=== PATIENT | male | born 1950 | race Caucasian/White ===

== ENCOUNTER 2019-08-18 13:26 | Outpatient (CLI) | payer MEDICARE, SELFPAY ==
--- NOTE | ~2019-08-18 | XR_ITS ---
XR shoulder LT min 2V 08/18/2019 13:52 Indication: Left shoulder pain after recent fall Procedure: 4 views left shoulder Comparison: No prior studies for comparison. Findings: There is mild polyarticular osteoarthritis. No acute fracture or traumatic malalignment. Os teopenia. No significant soft tissue abnormality. No foreign bodies. There is an ossific density late ral to the acromion, likely calcific tendinopathy. Impression: 1: Mild polyarticular osteoarthritis of the left shoulder. Reviewed, dictated and finalized at location A. Impression: 1: Mild polyarticular osteoarthritis of the left shoulder.
== END 2019-08-18 13:27 | disposition home or self-care (01) ==
PROVIDERS: PCP Internal Medicine; Visit Provider Internal Medicine
DX: M25.512 Pain in left shoulder (principal)
CPT/HCPCS: 73030

== ENCOUNTER 2019-09-16 13:43 | Outpatient (RCR) | payer MEDICARE, SELFPAY ==
--- NOTE | 2019-09-21 16:47 | PTOPEVAL ---
Thank you for referring Kenji Newby to [facility]. Please review, sign, date and return this plan of care SPENCER. I agree with and certify that the following plan of care is medically necessary. Referring Physician Date Admitting Provider: Attending Provider: Marcus Marely MD Referring Provider: *PT Outpatient Evaluation Start: 09/16/19 13:42 Freq: Status: Active Protocol: Document 09/16/19 13:00 SYLVIE (Rec: 09/21/19 16:36 [facility] [id number]) Therapy Assessment Status Assessment Status Assessment Status Evaluation Evaluation Information Problem Diagnosis L shoulder pain/arthritis Onset 08/18/19 Subjective Information patient reports he has been Query Text:As Reported By Patient/ having pain in the L shoulder Family for months. he reports no injury. he reports he has had pain in the L shoulder in the past, but has been flared up since around june. he reports he has had no injection to the L shoulder. he reports increased pain with sleeping and with increased activities. Prior Level of Function Comments Additional Prior Level of Function patient reports he likes to Comments fish, golf, and do other outdoor activities. Pain Assessment Timing of Pain Assessment Timing of Pain Assessment Assessment Pain Scale Pain Scale Used Numeric (1 - 10) Self Report Pain Assessment Left Shoulder(s) Reported Pain Level 4 Pain Description Aching,Dull,Pulling,Sharp, Stabbing Pain Frequency Acute,Chronic Greatest Pain Intensity 8 Pain Aggravating Factors Changing Position,Exercise/ Activity,Lifting,Prolonged Position Pain Score Pain Score 4: Self Report Upper Extremity Range of Motion Scapular/ Shoulder Range of Motion Left Reason Not Measured WFL/Right Shoulder Flexion - Active 150 Shoulder Flexion - Passive 170 Shoulder Medial Rotation - Active 60 Shoulder Medial Rotation - Active functional reach to the lower Query Text:Reach Behind the Back lumbar spine with increased pain and increased time needed to complete. Shoulder Lateral Rotation - Active 80 Shoulder Lateral Rotation - Active functional reach to the lower Query Text:Reach Behind the Head cervical spine/upper thoracic
--- NOTE | 2019-09-28 15:10 | PCPTNOTE ---
09/28/19-pt cancelled apt as he is out of town for work. -
--- NOTE | 2019-10-07 09:39 | PCPTNOTE ---
10/07/19- pt cancelled appointment today, said he had a tooth pulled and it is bothering him. -HM
== END 2019-09-30 17:00 | disposition home or self-care (01) ==
LOC: CHSPT 13:43
PROVIDERS: PCP Internal Medicine; Visit Provider Internal Medicine
DX: M25.512 Pain in left shoulder (principal); M13.812 Other specified arthritis, left shoulder
CPT/HCPCS: 97014; 97110; 97140; 97161; G0283

== ENCOUNTER 2020-03-20 09:12 | Outpatient (CLI) | payer MEDICARE, SELFPAY ==
--- NOTE | ~2020-03-20 | XR_ITS ---
XR knee LT min 4V DATE: 03/20/2020 09:37 INDICATION: Left knee pain for 2 weeks. The ma was punctured with metal. TECHNIQUE: 4 views COMPARISON: 10/03/2016 FINDINGS: No fracture or dislocation or joint effusion. There is mild periarticular spurring of the patella consistent with osteoarthritis. No radiopaque int ra-articular loose body or chondrocalcinosis is evident. IMPRESSION: Mild osteoarthritis at the patellofemoral joint Reviewed, dictated and finalized at location A.
[2020-03-20 09:32] LABS: Basophils Absolute Auto 0.02 K/mm3 (0.00-0.10); Basophils Percent Auto 0.3 % (0.0-1.0); Eosinophils Absolute Auto 0.13 K/mm3 (0.02-0.50); Eosinophils Percent Auto 1.9 % (1.0-6.0); Hematocrit 41.8 % (37.0-46.0); Hemoglobin 13.9 g/dL (12.4-15.3); Immature Granulocyte Absolute 0.02 K/mm3 (0.00-0.00); Immature Granulocyte Percent A 0.3 % (0.0-0.0); Lymphocytes Absolute Auto 1.47 K/mm3 (1.10-4.50); Lymphocytes Percent Auto 21.8 % (18.0-42.0); Mean Corpuscular HGB Conc 33.3 g/dL (32.0-36.0); Mean Corpuscular Hemoglobin 30.3 pg (27.0-31.0); Mean Corpuscular Volume 91.1 fL (78.0-102.0); Mean Platelet Volume 10.5 fl (8.7-11.0); Monocytes Absolute Auto 0.41 K/mm3 (0.10-0.90); Monocytes Percent Auto 6.1 % (2.0-11.0); Neutrophils Absolute Auto 4.7 K/mm3 (1.7-7.2); Neutrophils Percent Auto 69.6 % (50.0-70.0); Platelet Count Result 174 K/mm3 (150-420); Red Blood Count 4.59 M/mm3 (4.70-6.10); Red Cell Distribution Width 12.2 % (11.6-14.4); White Blood Count 6.7 K/mm3 (4.8-10.8)
[2020-03-20 09:33] LABS: Add Urine Microscopic? NO; Appearance Urine Clear (Clear); Bilirubin Urine Negative (Negative); Blood Urine Negative (Negative); Color Urine Yellow (Yellow); Glucose Urine UA Negative (Negative); Ketones Urine Negative (Negative); Leukocyte Esterase Ur Negative (Negative); Nitrate Urine Negative (Negative); Protein Urine Negative (Negative); Urobilinogen Urine 0.2 mg/dL (0.2-1.0); pH Urine 5.5 (5.0-8.0)
[2020-03-20 09:58] LABS: Creatinine Urine 92.44 mg/dL (40-278); MALB Creatinine Ratio 95.8 mg/g (0-30); Microalbumin Urine Random 88.6 mg/L
[2020-03-20 10:11] LABS: Hemoglobin A1C 8.2 % (<5.7)
[2020-03-20 10:20] LABS: Alanine Aminotransferase 24 U/L (16-63); Albumin Level 3.7 g/dL (3.4-5.0); Alkaline Phosphatase 57 U/L (46-116); Anion Gap 9 mmol/L (8-16); Aspartate Amino Transferase 17 U/L (15-37); Bilirubin,Total 0.4 mg/dL (0.00-1.00); Blood Urea Nitrogen 11 mg/dL (7-18); Calcium 8.9 mg/dL (8.5-10.1); Carbon Dioxide 29 mmol/L (21-32); Chloride 103 mmol/L (98-108); Cholesterol 203 mg/dL (0-200); Estimated Glomerular Filt Rate > 60; Glucose 154 mg/dL (70-99); HDL Direct 32 mg/dL (40-60); LDL Cholesterol Calculated 124 mg/dL (<130); Osmolality Calculated 294 mOsm/kg (285-295); Potassium 4.6 mmol/L (3.5-5.1); Sodium 141 mmol/L (136-145); Thyroid Stimulating Hormone 1.33 uIU/mL (0.36-3.74); Total Protein 6.4 g/dL (6.4-8.2); Triglycerides 237 mg/dL (0-150)
== END 2020-03-20 09:13 | disposition home or self-care (01) ==
PROVIDERS: PCP Internal Medicine; Visit Provider Internal Medicine
DX: E11.9 Type 2 diabetes mellitus without complications (principal); S89.92XA Unspecified injury of left lower leg, initial encounter; Z00.00 Encounter for general adult medical examination without abnormal findings
CPT/HCPCS: 36415; 73564; 80053; 80061; 81003; 82043; 83036; 84443; 85025

== ENCOUNTER 2021-05-30 13:11 | Outpatient (CLI) | payer MEDICARE, SELFPAY ==
[2021-05-30 14:50] LABS: Influenza Control Valid (Valid); SARS-CoV-2 Ag Positive (Negative)
== END 2021-05-30 13:12 | disposition home or self-care (01) ==
LOC: CHSLAB 13:15
PROVIDERS: PCP Internal Medicine; Visit Provider Internal Medicine
DX: U07.1 COVID-19 (principal)
CPT/HCPCS: 87426; 87804; C9803

== ENCOUNTER 2022-05-24 11:11 | Outpatient (CLI) | payer MEDICARE, SELFPAY ==
[2022-05-24 11:32] LABS: Add Urine Microscopic? YES; Appearance Urine Clear (Clear); Bilirubin Urine Negative (Negative); Blood Urine Negative (Negative); Color Urine Light Yellow (Yellow); Glucose Urine UA 3+ (Negative); Ketones Urine Negative (Negative); Leukocyte Esterase Ur Negative (Negative); Nitrate Urine Negative (Negative); Protein Urine Trace (Negative); Specific Grav Ur 1.025 (1.010-1.020); Urobilinogen Urine 0.2 mg/dL (0.2-1.0)
[2022-05-24 11:33] LABS: Basophils Absolute Auto 0.02 K/mm3 (0.00-0.10); Basophils Percent Auto 0.3 % (0.0-1.0); Eosinophils Absolute Auto 0.11 K/mm3 (0.02-0.50); Eosinophils Percent Auto 1.9 % (1.0-6.0); Hematocrit 42.7 % (37.0-46.0); Hemoglobin 14.4 g/dL (12.4-15.3); Immature Granulocyte Absolute 0.02 K/mm3 (0.00-0.00); Immature Granulocyte Percent A 0.3 % (0.0-0.0); Immature Platelet Fraction Pct 5.4 % (1.0-7.0); Lymphocytes Absolute Auto 1.55 K/mm3 (1.10-4.50); Lymphocytes Percent Auto 26.1 % (18.0-42.0); Mean Corpuscular HGB Conc 33.7 g/dL (32.0-36.0); Mean Corpuscular Hemoglobin 29.9 pg (27.0-31.0); Mean Corpuscular Volume 88.8 fL (78.0-102.0); Monocytes Absolute Auto 0.34 K/mm3 (0.10-0.90); Monocytes Percent Auto 5.7 % (2.0-11.0); Neutrophils Absolute Auto 3.9 K/mm3 (1.7-7.2); Neutrophils Percent Auto 65.7 % (50.0-70.0); Platelet Count Result 130 K/mm3 (150-420); Red Blood Count 4.81 M/mm3 (4.70-6.10); Red Cell Distribution Width 11.9 % (11.6-14.4); White Blood Count 5.9 K/mm3 (4.8-10.8)
[2022-05-24 11:40] LABS: Bacteria Urine Trace /hpf; Mucus Urine Few /lpf; RBC Urine None seen /hpf (0-2); Squamous Epithelial Cell Urine Rare /hpf (Few); WBC Urine None seen /hpf (0-3)
[2022-05-24 12:15] LABS: Alanine Aminotransferase 27 U/L (16-63); Albumin Level 3.8 g/dL (3.4-5.0); Alkaline Phosphatase 67 U/L (46-116); Anion Gap 6 mmol/L (8-16); Aspartate Amino Transferase 17 U/L (15-37); Bilirubin,Total 0.5 mg/dL (0.00-1.00); Blood Urea Nitrogen 14 mg/dL (7-18); Calcium 8.7 mg/dL (8.5-10.1); Carbon Dioxide 29 mmol/L (21-32); Chloride 101 mmol/L (98-108); Estimated Glomerular Filt Rate 59; Glucose 329 mg/dL (70-99); Osmolality Calculated 295 mOsm/kg (285-295); Potassium 4.6 mmol/L (3.5-5.1); Prostate Specific Antigen 3.4 ng/mL (< OR = 4.0); Sodium 136 mmol/L (136-145); Total Protein 6.3 g/dL (6.4-8.2)
[2022-05-24 12:25] LABS: Creatinine Urine 77.01 mg/dL (40-278)
[2022-05-24 12:27] LABS: MALB Creatinine Ratio 224.6 mg/g (0-30)
== END 2022-05-24 11:12 | disposition home or self-care (01) ==
PROVIDERS: PCP Internal Medicine; Visit Provider Internal Medicine
DX: E11.9 Type 2 diabetes mellitus without complications (principal); I10 Essential (primary) hypertension; Z12.5 Encounter for screening for malignant neoplasm of prostate
CPT/HCPCS: 36415; 80053; 81001; 82043; 83036; 84153; 85025; 85055; G0103

== ENCOUNTER 2022-06-06 12:36 | Outpatient (CLI) | payer MEDICARE, SELFPAY ==
--- NOTE | ~2022-06-06 | US_ITS ---
US abdomen limited INDICATION: Pancreatic mass. PROCEDURE: Realtime right upper abdominal ultrasound. COMPARISON: CT dated 06/15/2018 FINDINGS: The pancreas is normal without focal mass or pancreatic ductal dilation. Liver echotexture is increased, consistent with fatty infiltration. There is a 3.4 cm liver cyst. There is normal dir ectional flow in the portal vein. The gallbladder is normal without stones, gallbladder wall thickening or pericholecystic fluid. Comm on bile duct measures 5 mm. No sonographic Hernández's sign. IMPRESSION: 1: Hepatic steatosis. 2: Liver cyst measuring 3.4 cm. Reviewed, dictated and finalized at location A. [employer]
== END 2022-06-06 12:37 | disposition home or self-care (01) ==
LOC: CHSIMG 12:37
PROVIDERS: PCP Internal Medicine; Visit Provider Internal Medicine
DX: E11.9 Type 2 diabetes mellitus without complications (principal); K86.9 Disease of pancreas, unspecified; K76.0 Fatty (change of) liver, not elsewhere classified; K76.89 Other specified diseases of liver
CPT/HCPCS: 76705

== ENCOUNTER 2022-09-17 11:52 | Outpatient (CLI) | payer MEDICARE, SELFPAY ==
[2022-09-17 12:17] LABS: Hemoglobin A1C 6.4 % (<5.7)
[2022-09-17 12:21] LABS: Creatinine Urine 67.41 mg/dL (40-278)
[2022-09-17 12:25] LABS: MALB Creatinine Ratio 240.7 mg/g (0-30); Microalbumin Urine Random 162.3 mg/L
[2022-09-17 12:38] LABS: Alanine Aminotransferase 28 U/L (16-63); Albumin Level 3.9 g/dL (3.4-5.0); Alkaline Phosphatase 52 U/L (46-116); Anion Gap 8 mmol/L (8-16); Aspartate Amino Transferase 19 U/L (15-37); Bilirubin,Total 0.4 mg/dL (0.00-1.00); Blood Urea Nitrogen 21 mg/dL (7-18); Calcium 8.6 mg/dL (8.5-10.1); Carbon Dioxide 28 mmol/L (21-32); Chloride 105 mmol/L (98-108); Cholesterol 156 mg/dL (0-200); Glucose 105 mg/dL (70-99); HDL Direct 39 mg/dL (40-60); LDL Cholesterol Calculated 94 mg/dL (<130); Osmolality Calculated 295 mOsm/kg (285-295); Potassium 4.3 mmol/L (3.5-5.1); Sodium 141 mmol/L (136-145); Total Protein 6.5 g/dL (6.4-8.2); Triglycerides 114 mg/dL (0-150)
[2022-09-17 12:49] LABS: Estimated Glomerular Filt Rate 60
== END 2022-09-17 11:53 | disposition home or self-care (01) ==
LOC: CHSLAB 11:54
PROVIDERS: PCP Internal Medicine; Visit Provider Internal Medicine
DX: E11.9 Type 2 diabetes mellitus without complications (principal); I10 Essential (primary) hypertension; E78.5 Hyperlipidemia, unspecified
CPT/HCPCS: 36415; 80053; 80061; 82043; 83036

== ENCOUNTER 2023-01-29 14:33 | Emergency (ER) | payer MEDICARE, SELFPAY ==
[2023-01-29] VITALS (50 sets, daily range): BP systolic 84–160; BP diastolic 52–147; PULSE 115–180; RESP 13–28; TEMP 36.6–36.8; O2SAT 83–97
--- NOTE | ~2023-01-29 | XR_ITS ---
EXAMINATION: XR chest 1V portable Exam Date/Time: 01/29/2023 15:00 CDT HISTORY: WEAKNESS Comparison: None. RESULT: Lines, tubes, and devices: None. Lungs and pleura: Low volumes. Bibasilar linear scar/atelectasis. Cardiomediastinal silhouette: Stable. Other: No acute osseous or upper abdominal finding. IMPRESSION: No acute cardiopulmonary process. Reviewed, dictated and finalized at location K.
--- NOTE | ~2023-01-29 | CT_ITS ---
EXAMINATION: CT brain wo con DATE: 01/29/2023 17:03 INDICATION: weakness . TECHNIQUE: Computed tomography (CT) of the head was performed without intravenous contrast. The mA wa s adjusted according to patient size. Iterative reconstruction technique was employed. The dose-lengt h product was 681.00 mGy-cm. COMPARISON: None. FINDINGS: No acute intracranial hemorrhage or extra-axial fluid collection. No hydrocephalus, mass, or herniation. No acute ischemic infarct. Unremarkable dural venous sinus attenuation. No acute osseous abnormality. Mild bilateral maxillary and ethmoid mucosal thickening, moderate right mastoid fluid without erosion s or middle ear fluid, the remaining aerated spaces are clear. Moderate atrophy and chronic white matter change. Atherosclerotic intracranial calcification. Right l ens replacement. Old left basal ganglia lacunar infarct. IMPRESSION: No acute intracranial process. Reviewed, dictated and finalized at location K.
--- NOTE | 2023-01-29 14:10 | ECG_ITS ---
Measurements Intervals [place] Rate: 177 P: [place]: 0 QRS: 12 QRSD: 99 T: 120 QT: 251 QTc: 431 Interpretive Statements ATRIAL FIBRILLATION WITH RAPID VENTRICULAR RESPONSE VENTRICULAR TRIPLET AND FREQUENT VENTRICULAR PREMATURE COMPLEXES NONSPECIFIC ST & T-WAVE ABNORMALITY- DIFFUSE LEADS ABNORMAL ECG NO PREVIOUS ECG AVAILABLE FOR COMPARISON Electronically Signed On 01-30-2023 8:34:42 CDT by Theron Elizondo D.O.
--- NOTE | 2023-01-29 14:53 | ED.ARRPALP ---
HPI - Arrhythmia/Palpitations General Chief Complaint: Arrhythmia/Palpitations Stated Complaint: low blood pressure Time Seen by Provider: 01/29/23 14:53 Source: patient Mode of arrival: ambulatory Limitations: no limitations History of Present Illness HPI narrative: 72-year-old male with a history of hypertension, dyslipidemia, diabetes mellitus presents to the ER with a 1 week history of -- nausea and vomiting and diarrhea -- headache -- lightheadedness with balance problems. Patient is noted to have atrial fibrillation with a ventricular rate of 177. The patient is hemodynamically stable. No prior history of atrial fibrillation. The patient denied any chest pain or shortness of breath. Patient does not perceive any palpitation. patient has not had any prior cardiac stress testing or cardiac catheterization. Nonsmoker MD complaint: rapid heart beat Onset (ago): day(s) ( Started 7 days ago.) Duration: constant Severity: moderate Context: occurred during rest Arrhythmia history: atrial fibrillation Associated symptoms: denies other symptoms Related Data Allergies Allergy/AdvReac Type Severity Reaction Status Date / Time No Known Allergies Allergy Verified 01/29/23 14:59 Review of Systems Review of Systems: All systems reviewed & are unremarkable except as noted in HPI and below Constitutional: Constitutional: Reports as per HPI, Reports no additional constitutional complaints, Reports fatigue, Reports headache(s), Reports lethargy and Reports weakness Eyes: Eyes: Reports as per HPI and Reports no additional eye complaints ENT: Reports system reviewed and no additional complaints, except as documented and Reports as per HPI Cardiovascular: Cardiovascular: Reports as per HPI and Reports no additional cardiovascular complaints Respiratory: Respiratory: Reports as per HPI and Reports no additional respiratory complaints Gastrointestinal: Gastrointestinal: Reports as per HPI and Reports no additional gastrointestinal complaints Genitourinary: Genitourinary: Reports no additional male genitourinary complaints and Reports as per HPI Musculoskeletal: Musculoskeletal: Reports no additional musculoskeletal complaints and Reports as per HPI Integumentary/Breasts: Skin/Breast: Reports system reviewed and no additional complaints, except as docu Neurologic: Reports system reviewed and no additional complaints, except as documented and Reports as per HPI Psychiatric: Psychiatric: Reports no additional psychiatric complaints and Reports as per HPI Endocrine: Endocrine: Reports no additional endocrine complaints and Reports as per HPI Hematologic/Lymphatic: Hematologic/Lymphatic: Reports no additional hematologic/lymphatic complaints and Reports as per HPI Allergic/Immunologic: Allergic/Immunologic: Reports no additional allergic/immunologic complaints and Reports as per HPI [facility] Past Medical History Medical History (Updated 01/29/23 @ 18:47 by Abdulaziz Felipe MD) Dyslipidemia Hypertension Exam Const: General: cooperative, healthy appearing and comfortable Nutritional Appearance: obese HENMT: Head: normal to inspection, No palpable skull fracture present, normocephalic and atraumatic Ears: hearing grossly impaired Face/Nose/Sinus: Normal external nose present, Normal nares present and No nasal polyps present Face and sinus: normal facial exam, sinuses nontender and face symmetric Mouth: Yes Normal oral and palatal mucosa present and Yes lip normal Throat: posterior oropharynx normal and tonsils normal Eyes: General: appearance normal, both eyes and all related structures Visual Silva: normal visual silva by confrontation Alignment and Position: alignment normal Eyelids: eyelids normal Conjunctivae: conjunctivae normal Sclera: sclerae normal Cornea: corneas normal Pupils: Equal, round and reactive pupils present Neck: Neck: normal visual inspection, full ROM, no lymphadenopathy, no meningeal sig
[2023-01-29] MEDS: METOPROLOL TARTRATE INJ 5 MG/5 ML VIAL IV PUSH (15:03)
[2023-01-29 15:10] LABS: Basophils Absolute Auto 0.01 K/mm3 (0.00-0.10); Basophils Percent Auto 0.2 % (0.0-1.0); Eosinophils Absolute Auto 0.02 K/mm3 (0.02-0.50); Eosinophils Percent Auto 0.4 % (1.0-6.0); Hematocrit 46.5 % (37.0-46.0); Hemoglobin 15.9 g/dL (12.4-15.3); Immature Granulocyte Absolute 0.01 K/mm3 (0.00-0.00); Immature Granulocyte Percent A 0.2 % (0.0-0.0); Immature Platelet Fraction Pct 8.5 % (1.0-7.0); Lymphocytes Absolute Auto 0.33 K/mm3 (1.10-4.50); Lymphocytes Percent Auto 6.3 % (18.0-42.0); Mean Corpuscular HGB Conc 34.2 g/dL (32.0-36.0); Mean Corpuscular Hemoglobin 30.5 pg (27.0-31.0); Mean Corpuscular Volume 89.3 fL (78.0-102.0); Monocytes Absolute Auto 0.61 K/mm3 (0.10-0.90); Monocytes Percent Auto 11.6 % (2.0-11.0); Neutrophils Absolute Auto 4.3 K/mm3 (1.7-7.2); Neutrophils Percent Auto 81.3 % (50.0-70.0); Platelet Count Result 90 K/mm3 (150-420); Red Blood Count 5.21 M/mm3 (4.70-6.10); Red Cell Distribution Width 13.1 % (11.6-14.4); White Blood Count 5.3 K/mm3 (4.8-10.8)
[2023-01-29 15:25] LABS: Partial Thromboplastin Time 26.5 SEC (23.90-30.70); Prothrombin Time 10.6 Seconds (9.50-12.10)
[2023-01-29 15:29] LABS: Lactic Acid Reflex 1.5 mmol/L (0.4-2.0)
[2023-01-29 15:31] LABS: Alanine Aminotransferase 107 U/L (16-63); Albumin Level 2.8 g/dL (3.4-5.0); Alkaline Phosphatase 93 U/L (46-116); Anion Gap 11 mmol/L (8-16); Aspartate Amino Transferase 25 U/L (15-37); Bilirubin,Total 1.7 mg/dL (0.00-1.00); Blood Urea Nitrogen 56 mg/dL (7-18); Calcium 8.7 mg/dL (8.5-10.1); Carbon Dioxide 26 mmol/L (21-32); Chloride 94 mmol/L (98-108); Estimated CRCL calculation 29 ml/min; Estimated Glomerular Filt Rate 24; Glucose 267 mg/dL (70-99); Lipase 29 U/L (16-77); Magnesium 2.1 mg/dL (1.8-2.4); NT Pro B Type Natriuretic Pept 1604 pg/mL (0-125); Osmolality Calculated 296 mOsm/kg (285-295); Potassium 3.7 mmol/L (3.5-5.1); Sodium 131 mmol/L (136-145); Total Protein 6.8 g/dL (6.4-8.2)
[2023-01-29 15:32] LABS: Thyroid Stimulating Hormone 0.86 uIU/mL (0.36-3.74); Troponin I 16.3 ng/L (0.00-60.4)
[2023-01-29] MEDS: dilTIAZem HCl INJ 25 MG/5 ML VIAL 10 MG IV PUSH (15:51)
[2023-01-29] MEDS: dilTIAZem 100 MG/100 ML 100 MG/100 ML BAG IV CONT (16:05)
--- NOTE | 2023-01-29 19:37 | PC.NURSE ---
cardizem gtt continued after DC for transfer to [facility]
[2023-01-29 19:55] LABS: Influenza A QL RT-PCR Negative (Negative); Influenza B QL RT-PCR Negative (Negative); RSV RNA, RT-PCR Negative (Negative); SARS-CoV-2 RNA PCR Negative (Negative)
== END 2023-01-29 19:38 | disposition short-term general hospital (02) ==
PROVIDERS: Emergency Provider Internal Medicine Critical Care Medicine; PCP Internal Medicine
DX: I48.20 Chronic atrial fibrillation, unspecified (principal); N17.9 Acute kidney failure, unspecified; E11.65 Type 2 diabetes mellitus with hyperglycemia; I10 Essential (primary) hypertension; E78.5 Hyperlipidemia, unspecified; Z20.822 Contact with and (suspected) exposure to COVID-19
CPT/HCPCS: 36415; 70450; 71045; 80053; 83605; 83690; 83735; 83880; 84443; 84484; 85025; 85055; 85610; 85730; 87637; 93005; 96365; 96366; 96375; 99285

== ENCOUNTER 2023-02-06 11:11 | Outpatient (CLI) | payer MEDICARE, SELFPAY ==
[2023-02-06 12:14] LABS: Anion Gap 5 mmol/L (8-16); Blood Urea Nitrogen 14 mg/dL (7-18); Carbon Dioxide 31 mmol/L (21-32); Chloride 103 mmol/L (98-108); Estimated Glomerular Filt Rate 48; Glucose 173 mg/dL (70-99); Osmolality Calculated 292 mOsm/kg (285-295); Potassium 4.8 mmol/L (3.5-5.1); Sodium 139 mmol/L (136-145)
== END 2023-02-06 11:12 | disposition home or self-care (01) ==
PROVIDERS: PCP Internal Medicine
DX: E11.65 Type 2 diabetes mellitus with hyperglycemia (principal); N17.9 Acute kidney failure, unspecified; I95.9 Hypotension, unspecified
CPT/HCPCS: 36415; 80048

== ENCOUNTER 2023-02-27 08:19 | Outpatient (CLI) | payer MEDICARE, SELFPAY ==
--- NOTE | ~2023-02-27 | US_ITS ---
Abdominal Sonogram: Real-time sonographic imaging of the abdomen was performed. Clinical History: Renal failure, thrombocytopenia Findings: The liver appears normal with no evidence of solid mass lesion or bile duct dilatation. Si mple right hepatic lobe cyst measures 2.9 cm in diameter. Main portal vein demonstrates normal direct ion of flow. The spleen is normal in size without evidence of focal lesion. The gallbladder is well distended, and appears normal with no evidence of gallstone or wall thickening. The common bile duct measures 6 mm. The visualized pancreas, aorta, and IVC are unremarkable. The right kidney measures 10.5 cm in length and the left kidney measures 9.9 cm. There is no hydronephrosis or renal calculus. Impression: No significant abnormality seen. Reviewed, dictated and finalized at [facility]. Impression: No significant abnormality seen.
== END 2023-02-27 08:20 | disposition home or self-care (01) ==
LOC: CHSIMG 08:20
PROVIDERS: PCP Internal Medicine; Visit Provider Internal Medicine
DX: N17.9 Acute kidney failure, unspecified (principal)
CPT/HCPCS: 76700

== ENCOUNTER 2023-05-12 07:38 | Outpatient (CLI) | payer MEDICARE, SELFPAY ==
--- NOTE | 2023-05-12 08:30 | EST_ITS ---
Patient Info Name: Kenji Newby Age: 73 years : 1950 Gender: Male Ht: 70 in Wt: 219 lbs BSA: 2.24 m2 HR: 73 bpm BP: 141 / 83 mmHg Heart Rhythm: Sinus Rhythm Technical Quality: Excellent Exam Date: 05/12/2023 8:49 AM Exam Location: Echo Lab Patient Status: Outpatient Admit Date: 05/12/2023 Staff Ordering Physician: Bertin Mustafa Attending Provider: Bertin Mustafa MD Exercise Technologist: Karla Gómez CRT Exercise Physician: Nelli Swartz CEP Exam Type: CA stress cisco w NM Study Info Indications CAD - AFIB - A nuclear stress test was performed. History/Risk Factors Hypertension: Yes History/Risk Factors HTN. Summary 1. 1. Negative lexiscan stress test for ischemic ST changes by ECG criteria. 2. 2. Baseline hypertension. 3. 3. Nuclear scan to follow and will be reported separately. Please correlate with it. Protocol: LEXISCAN Stress ECG Details Stage: REST Duration (min): 3 min : 42 sec HR (bpm): 73 SBP (mmHg): 141 DBP (mmHg): 84 Stage: REST Duration (min): 23 min : 2 sec HR (bpm): 76 SBP (mmHg): 141 DBP (mmHg): 84 Stage: STAGE 1 Duration (min): 0 min : 16 sec HR (bpm): 76 SBP (mmHg): 141 DBP (mmHg): 84 Stage: RECOVERY Duration (min): 0 min : 43 sec HR (bpm): 87 SBP (mmHg): 141 DBP (mmHg): 84 Stage: RECOVERY Duration (min): 1 min : 43 sec HR (bpm): 92 SBP (mmHg): 141 DBP (mmHg): 84 Stage: RECOVERY Duration (min): 2 min : 43 sec HR (bpm): 92 SBP (mmHg): 159 DBP (mmHg): 74 Stage: RECOVERY Duration (min): 3 min : 43 sec HR (bpm): 85 SBP (mmHg): 155 DBP (mmHg): 81 Stage: RECOVERY Duration (min): 4 min : 43 sec HR (bpm): 89 SBP (mmHg): 147 DBP (mmHg): 84 Stage: RECOVERY Duration (min): 5 min : 43 sec HR (bpm): 85 SBP (mmHg): 152 DBP (mmHg): 84 Stage: RECOVERY Duration (min): 6 min : 1 sec HR (bpm): 83 SBP (mmHg): 152 DBP (mmHg): 84 Rest HR: 76 bpm Peak HR: 95 bpm Rest Sys BP: 141 mmHg Peak Sys BP: 160 mmHg Max Pred HR: 148 bpm % Max Pred HR: 64 % Target HR: 126 bpm Max RPP: 15,200 bpm*mmHg Termination Reason: Completed Protocol Cardiac Symptoms: Flushing Total Time: 0 min : 16 sec Rest Clemens BP: 84 mmHg Peak Clemens BP: 80 mmHg Total Dose: 0.4 mg Resting ECG Sinus rhythm, BRWP. Stress ECG No ST changes. Arrhythmias Frequent PVCs. Couplets noted. Report Signatures
--- NOTE | 2023-05-12 17:06 | WPDCARIOSTRE ---
Nuclear Stress Test INDICATIONS Indications: CAD PROCEDURE Procedure Performed: Myocardial Perf Spect-Multi Procedure: Patient underwent a lexiscan stress test and immediately was injected with 31.2 mCi of cardiolyte. Multiple tomographic images were obtained. These are of good quality. There is evidence of a large size, severe basal to mid inferior perfusion defect with stress imaging. A separate resting images were obtained after patient was injected with 9.7 mCi of cardiolyte. Multiple tomographic images were obtained. These are of good quality. There is evidence of a large size, severe basal to mid inferior perfusion defect with rest imaging. CONCLUSION Conclusion: 1. Myocardial perfusion imaging demonstrating a fixed large size, severe basal to mid inferior perfusion defect which is consistent with prior myocardial infarction or scar. 2. No evidence of reversible ischemia. 3. Left ventriculogram demonstrates mild LV systolic dysfunction with measured ejection fraction of 41% with mild inferior wall hypokinesis. 4. TID score 1.05 is normal.
== END 2023-05-12 07:39 | disposition home or self-care (01) ==
PROVIDERS: PCP Internal Medicine
DX: R00.0 Tachycardia, unspecified (principal); I10 Essential (primary) hypertension; I48.91 Unspecified atrial fibrillation; R94.39 Abnormal result of other cardiovascular function study
CPT/HCPCS: 78452; 93017; A9502; J2785

== ENCOUNTER 2023-06-25 09:02 | Outpatient (CLI) | payer MEDICARE, SELFPAY ==
--- NOTE | ~2023-06-25 | XR_ITS ---
XR foot LT min 3V DATE: 06/25/2023 09:27 INDICATION: Chronic right foot pain. Laceration of first digit. TECHNIQUE: 4 views COMPARISON: None FINDINGS: Very slight plantar calcaneal enthesopathy. No fracture or dislocation, periosteal reaction or bone destruction is detected. No erosive change. IMPRESSION: Very slight plantar calcaneal enthesopathy Reviewed, dictated and finalized at location B. NT RELATIONSHIP CONSULTANT
[2023-06-25 09:57] LABS: SARS-CoV-2 RNA PCR Negative (Negative)
[2023-06-25 09:59] LABS: RSV RNA, RT-PCR Negative (Negative)
== END 2023-06-25 09:03 | disposition home or self-care (01) ==
LOC: CHSLAB 09:04
PROVIDERS: PCP Internal Medicine; Visit Provider Internal Medicine
DX: J22 Unspecified acute lower respiratory infection (principal); L03.032 Cellulitis of left toe; M77.32 Calcaneal spur, left foot
CPT/HCPCS: 73630; 87634; 87635

== ENCOUNTER 2023-07-07 12:05 | Outpatient (CLI) | payer MEDICARE, SELFPAY ==
[2023-07-07 13:22] LABS: Anion Gap 8 mmol/L (8-16); Blood Urea Nitrogen 15 mg/dL (7-18); Calcium 8.4 mg/dL (8.5-10.1); Carbon Dioxide 32 mmol/L (21-32); Chloride 102 mmol/L (98-108); Estimated Glomerular Filt Rate > 60; Glucose 127 mg/dL (70-99); Osmolality Calculated 296 mOsm/kg (285-295); Potassium 4.7 mmol/L (3.5-5.1); Sodium 142 mmol/L (136-145)
== END 2023-07-07 12:06 | disposition home or self-care (01) ==
PROVIDERS: PCP Internal Medicine
DX: N28.9 Disorder of kidney and ureter, unspecified (principal)
CPT/HCPCS: 36415; 80048

== ENCOUNTER 2023-07-14 15:04 | Outpatient (CLI) | payer MEDICARE, SELFPAY ==
--- NOTE | ~2023-07-14 | XR_ITS ---
EXAMINATION: XR sinus min 3V INDICATION: Sinus congestion TECHNIQUE: Five views of the paranasal sinuses are obtained. COMPARISON: None available FINDINGS: There is normal pneumatization of the paranasal sinuses. There appears to be partial opacif ication of the right maxillary sinus. The facial bones are unremarkable. There is moderate cervical s pondylosis. IMPRESSION: 1. Probable right maxillary sinus disease. Consider further evaluation with CT of the sinuses. Reviewed, dictated and finalized at location L. ECT SCHEDULER
--- NOTE | ~2023-07-14 | XR_ITS ---
Clinical Indication: Congestion PA and lateral views of the chest: Comparison: 01/29/2023 Findings: The lungs are clear, without evidence of focal consolidation or pleural effusion. Cardiome diastinal silhouette is within normal limits. Bones and soft tissues are unremarkable. Impression: Normal chest. Reviewed, dictated and finalized at [facility]. EL RIFLER Impression: Normal chest.
[2023-07-14 15:18] LABS: Basophils Absolute Auto 0.02 K/mm3 (0.00-0.10); Basophils Percent Auto 0.3 % (0.0-1.0); Eosinophils Absolute Auto 0.08 K/mm3 (0.02-0.50); Eosinophils Percent Auto 1.4 % (1.0-6.0); Hemoglobin 13.4 g/dL (12.4-15.3); Immature Granulocyte Absolute 0.01 K/mm3 (0.00-0.00); Immature Granulocyte Percent A 0.2 % (0.0-0.0); Lymphocytes Absolute Auto 1.25 K/mm3 (1.10-4.50); Lymphocytes Percent Auto 21.4 % (18.0-42.0); Mean Corpuscular HGB Conc 32.7 g/dL (32.0-36.0); Mean Corpuscular Hemoglobin 29.5 pg (27.0-31.0); Mean Corpuscular Volume 90.1 fL (78.0-102.0); Mean Platelet Volume 10.3 fl (8.7-11.0); Monocytes Absolute Auto 0.32 K/mm3 (0.10-0.90); Monocytes Percent Auto 5.5 % (2.0-11.0); Neutrophils Absolute Auto 4.2 K/mm3 (1.7-7.2); Neutrophils Percent Auto 71.2 % (50.0-70.0); Platelet Count Result 142 K/mm3 (150-420); Red Blood Count 4.55 M/mm3 (4.70-6.10); Red Cell Distribution Width 12.4 % (11.6-14.4); White Blood Count 5.8 K/mm3 (4.8-10.8)
[2023-07-14 15:54] LABS: Alanine Aminotransferase 31 U/L (16-63); Albumin Level 3.6 g/dL (3.4-5.0); Alkaline Phosphatase 59 U/L (46-116); Anion Gap 7 mmol/L (8-16); Aspartate Amino Transferase 14 U/L (15-37); Bilirubin,Total 0.5 mg/dL (0.00-1.00); Blood Urea Nitrogen 12 mg/dL (7-18); Calcium 8.5 mg/dL (8.5-10.1); Carbon Dioxide 30 mmol/L (21-32); Chloride 104 mmol/L (98-108); Estimated Glomerular Filt Rate 58; Glucose 170 mg/dL (70-99); Osmolality Calculated 295 mOsm/kg (285-295); Potassium 4.2 mmol/L (3.5-5.1); Sodium 141 mmol/L (136-145); Thyroid Stimulating Hormone 1.47 uIU/mL (0.36-3.74); Total Protein 6.1 g/dL (6.4-8.2)
[2023-07-14 16:13] LABS: CRP < 0.5 mg/dL (0.0-0.9)
== END 2023-07-14 15:05 | disposition home or self-care (01) ==
LOC: CHSLAB 15:05
PROVIDERS: PCP Internal Medicine; Visit Provider Internal Medicine
DX: R05.3 Chronic cough (principal); R09.81 Nasal congestion; R53.83 Other fatigue
CPT/HCPCS: 36415; 70220; 71046; 80053; 84443; 85025; 86140

== ENCOUNTER 2023-07-17 08:40 | Outpatient (CLI) | payer MEDICARE, SELFPAY ==
--- NOTE | ~2023-07-17 | CT_ITS ---
EXAMINATION: CT sinus wo con DATE: 07/17/2023 09:03 INDICATION: Right maxillary sinus opacification TECHNIQUE: Computed tomography (CT) of the paranasal sinuses was performed without intravenous contra st. The dose-length product (DLP) was 334.42 mGy-cm. Iterative reconstruction was used. COMPARISON: None FINDINGS: There is normal development and pneumatization of the paranasal sinuses. There is mild muco kassie thickening posteriorly in the left sphenoid sinus. An air fluid level is noted in the right maxil soniya sinus. There is mild inferior mucosal thickening of the maxillary sinuses. There is also mild me dial and lateral mucosal thickening of the left maxillary sinus. The frontal, right sphenoid, and eth moid sinuses are clear. The right posteromedial complex is patent. The left ostiomeatal complex is oc cluded. Visualized soft tissues are unremarkable. IMPRESSION: 1. Sinus disease as described above. Reviewed, dictated and finalized at location L. TAIN WORKER
== END 2023-07-17 08:41 | disposition home or self-care (01) ==
PROVIDERS: PCP Internal Medicine; Visit Provider Internal Medicine
DX: J01.00 Acute maxillary sinusitis, unspecified (principal)
CPT/HCPCS: 70486

== ENCOUNTER 2023-10-28 09:17 | Outpatient (CLI) | payer MEDICARE, SELFPAY ==
[2023-10-28 09:49] LABS: Hemoglobin A1C 8.3 % (<5.7)
[2023-10-28 09:52] LABS: Alanine Aminotransferase 26 U/L (16-63); Albumin Level 3.7 g/dL (3.4-5.0); Alkaline Phosphatase 64 U/L (46-116); Anion Gap 6 mmol/L (4-12); Aspartate Amino Transferase 18 U/L (15-37); Bilirubin,Total 0.6 mg/dL (0.00-1.00); Blood Urea Nitrogen 17 mg/dL (7-18); Carbon Dioxide 31 mmol/L (21-32); Chloride 102 mmol/L (98-108); Cholesterol 184 mg/dL (0-200); Estimated Glomerular Filt Rate 53; Glucose 167 mg/dL (70-99); HDL Direct 41 mg/dL (40-60); LDL Cholesterol Calculated 124 mg/dL (<130); Osmolality Calculated 293 mOsm/kg (285-295); Potassium 4.9 mmol/L (3.5-5.1); Sodium 139 mmol/L (136-145); Total Protein 6.5 g/dL (6.4-8.2); Triglycerides 93 mg/dL (0-150)
== END 2023-10-28 09:18 | disposition home or self-care (01) ==
LOC: CHSLAB 09:19
PROVIDERS: PCP Internal Medicine; Visit Provider Internal Medicine
DX: E11.65 Type 2 diabetes mellitus with hyperglycemia (principal); E78.5 Hyperlipidemia, unspecified
CPT/HCPCS: 36415; 80053; 80061; 83036

== ENCOUNTER 2024-02-20 00:44 | Day surgery (SDC) | payer MEDICARE, SELFPAY ==
[2024-02-19 15:34] VITALS: BMI 33.1
--- NOTE | 2024-02-19 15:40 | PC.NURSE ---
Report to the Outpatient Waiting Room, entrance under the green pavilion located off [facility], at time _1100_ on date _[id number]_. Planned Procedure Time: _1pm_.? Time changes happen often and if your time is changed the preop area will call you the afternoon before. - You and your visitor will be asked to self-screen and do not enter if you have any COVID symptoms. Please call surgeon if you need to reschedule. - A mask is optional within the hospital at this time. Patients may have clear liquids (water, carbonated beverages, clear teas, apple juice) until 3 hours prior to surgery with a maximum of 20 ounces. - No food from midnight until time of surgery and no smoking Take only the following medications with a SIP of water on the morning of surgery: ____Cipro, Metronidazole and if needed Hydrocodone. DO NOT STOP ANY OF YOUR OTHER PRESCRIPTION MEDICATIONS PRIOR TO SURGERY EXCEPT THE FOLLOWING Medications to discontinue per physician ____Stop Xarelto now.____ Please no make-up, nail chinese, hairspray, perfume, deodorant, or body powder the day of surgery.? No jewelry (including any body piercings) or valuables the day of surgery, leave them at home.? Please take a shower or bath the night before, or the morning of, surgery with an antibacterial soap.? Wear comfortable, loose fitting clothing.? - Jewelry must be removed prior to entering the operating room.? Rings and piercings that are not removed may be cut off. - The hospital will not accept responsibility for valuables.? - Please leave all valuables, including medications, at home the day of surgery. If you are going home after surgery, a licensed goat driver must drive you home.? - NO public transportation without another adult if you receive anesthesia. - We recommend that an adult stay with you for 24 hours following discharge. - We also recommend that you do not drive, make important decision, drink alcoholic beverages, or take any drugs that were not prescribed by your health care provider for at least 24 hours after your discharge time. Follow any additional instructions given to you from your surgeon. Telephone instructions given to __Kenji__and asked if any additional questions and then verbalized understanding. Patient advised to call surgeon office or pre surgery nurse liaison [phone] if any additional questions.
--- NOTE | 2024-02-20 11:08 | ECG_ITS ---
Test Date: 2024-02-20 11:38:27 Measurements Intervals [place] Rate: 72 P: 73 IA: 194 QRS: 11 QRSD: 90 T: 31 QT: 385 QTc: 422 Interpretive Statements SINUS RHYTHM VENTRICULAR TRIGEMINY INFERIOR INFARCT, AGE INDETERMINATE BASELINE ARTIFACT- I, II, III, AVR, AVL, AVF ABNORMAL ECG No previous ECG available for comparison Electronically Signed On 02-20-2024 11:53:15 CDT by Theron Elizondo D.O.
--- NOTE | 2024-02-20 11:44 | SUR.PREOP ---
1145-EKG done, irregular-copy shown to Dr. Vazquez.
[2024-02-20 12:00] VITALS: BP 149/71; PULSE 56; RESP 14; TEMP 36.6; O2SAT 99
--- NOTE | 2024-02-20 12:12 | P.PNAN_ITS ---
Anes - Initial Pre Proc Eval Procedure: Operation Date: 02/20/24 13:00 Proposed Procedures p Incision and Drainage of Pilonidal Abscess - Jose M Brooks MD Date/Time: 02/20/24 12:12 Surgeon: Jose M Brooks MD Pre Op Diagnosis: pilonidal abscess Patient Data Age: 73 Gender: M Height: 1.79 m Weight: 106.4 kg Allergies Allergy/AdvReac Type Severity Reaction Status Date / Time No Known Allergies Allergy Verified 02/20/24 11:22 Home Medications Medication Instructions Recorded Confirmed Type ciprofloxacin HCl 500 mg tablet 500 mg PO Q12H 02/19/24 02/20/24 History flash glucose sensor (FreeStyle 02/19/24 02/19/24 History Lisette 2 Sensor kit) glimepiride 2 mg tablet 2 mg PO QAM 02/19/24 02/20/24 History hydrocodone 5 mg-acetaminophen 325 1 - 2 tablet PO Q6H PRN pain #20 02/19/24 02/20/24 Rx mg tablet tabs metronidazole 500 mg tablet 500 mg PO Q12H 02/19/24 02/20/24 History rivaroxaban 20 mg tablet (Xarelto) 20 mg PO DAILY 02/19/24 02/20/24 History tamsulosin 0.4 mg capsule 0.4 mg PO DAILY 02/19/24 02/20/24 History Patient hx anesthesia problems: none Family hx anesthesia problems: none Results Review: All pre-operative results and documents have been reviewed as part of the pre- operative evaluation. 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 Informed Consent: The patient's anesthetic plan and its attendant risks and benefits were discussed with the patient/family/POA. Questions were solicited and answers provided to the satisfaction of the patient/family/POA.
[2024-02-20 12:26] LABS: Anion Gap 6 mmol/L (4-12); Blood Urea Nitrogen 18 mg/dL (9-20); Calcium 9.1 mg/dL (8.4-10.2); Carbon Dioxide 29 mmol/L (22-30); Chloride 101 mmol/L (98-107); Estimated CRCL calculation 61 ml/min; Estimated Glomerular Filt Rate 60; Glucose 173 mg/dL (65-110); Potassium 4.5 mmol/L (3.4-5.0); Sodium 136 mmol/L (137-145)
--- NOTE | 2024-02-20 12:27 | WPDHPUPDATE1 ---
History and Physical Update Update Date/Time: 02/20/24 12:27 History and Physical has been reviewed, including an updated exam of the patient. There are NO changes in the patient's condition. Risks, benefits, and alternatives have been discussed and questions answered. Patient agrees to proceed with procedure.
[2024-02-20] MEDS: LACTATED RINGERS 1,000 ML 30 ML IV CONT ×2 (12:30→14:15)
[2024-02-20] MEDS: ceFAZolin 2 GM/D5W 50 ML 2 GM/50 ML BAG IVPB (13:21)
[2024-02-20] MEDS: BUPIVACAINE/EPINEPHRINE 0.5% 50 ML VIAL 30 ML INFILTRATE (13:55)
[2024-02-20 14:15] VITALS: BP 141/86; PULSE 94; RESP 12; TEMP 36.2; O2SAT 98
[2024-02-20 14:30] VITALS: BP 151/89; PULSE 87; RESP 15; O2SAT 100
--- NOTE | 2024-02-20 14:36 | P.OP_ITS ---
Procedure Note - Detailed Date of Procedure 02/20/24 Pre-op Diagnosis Pilonidal abscess Post-op Diagnosis Same Procedure Performed Incision and drainage of pilonidal abscess Surgeon Jose M Brooks MD Environmental Compliance Specialist John Duke, [facility] Anesthesia MAC Indications Patient is a 73-year-old gentleman who has of pilonidal abscess. He was seen in the office yesterday and is having so much pain in hernia sit down. He presents now for incision and drainage of the pilonidal abscess. Findings Patient had a pilonidal abscess located in the distal 1/3 of the upper midline gluteal cleft. The abscess cavity measured approximately 2cm. It extended more cephalad towards the top of the cleft rather than towards the anal opening. Culture swab was obtained from the abscess cavity sent to microbiology. Description of Procedure After informed consent was obtained patient brought to the operating room was placed in the lateral decubitus position on operating table. IV sedation was administered by anesthesia. The area the upper midline gluteal cleft was then prepped and draped usual sterile fashion. A time-out was then performed correctly identifying the patient as well as procedure to be performed verifying he was given Ancef perioperative IV antibiotics. I then injected 1% lidocaine mixed with 0.5% Marcaine around the abscess cavity for local anesthetic effect. An 11 blade scalpel was then used to vertically incise the abscess over the most fluctuant area. Abscess was located in the distal 1/3 of the upper midline gluteal cleft. Once I incised the abscess the pus drained and then I obtained a culture swab of the abscess cavity and this was sent to microbiology for Gram stain and aerobic and anaerobic cultures. I then placed my index finger into the abscess cavity to break down loculations. I then irrigated out the abscess cavity sterile saline solution. Hemostasis was then achieved on the skin edges utilized electrocautery. I then packed the wound tightly with quarter-inch iodoform gauze. There is then cleaned and then sterile dressing was applied. The patient tolerated the procedure well no complications. All sponges, needles, and instrument counts were correct at the end procedure. EBL was _10__cc. The patient was awakened and taken to recovery in stable and satisfactory condition. Implants None Estimated Blood Loss 10 Drains No Packing Yes (About 18in of quarter-inch iodoform gauze packed into the abscess cavity.) Pathology Yes (Culture swab of the abscess cavity sent to microbiology for Gram stain and cultures.) Condition Stable Disposition PACU [facility] Billing Surgery - Charge Forward: Surgery Billing
[2024-02-20 14:45] VITALS: BP 164/96; PULSE 89; RESP 21; O2SAT 95
[2024-02-20 15:05] VITALS: BP 148/84; PULSE 79; RESP 16
[2024-02-20 15:35] VITALS: BP 148/84; PULSE 79; RESP 18
== END 2024-02-20 15:51 | disposition home or self-care (01) ==
PROVIDERS: Anesthesiology; PCP Internal Medicine; Visit Provider Surgery
PROC: (CPT 10080; principal; 2024-02-20 13:00)
DX: L05.01 Pilonidal cyst with abscess (principal); E78.5 Hyperlipidemia, unspecified; I10 Essential (primary) hypertension
CPT/HCPCS: 10080; 36415; 80048; 87070; 87075; 87076; 87185; 87205; 93005; J0690; J2405; J2704; J3010; J7120

== ENCOUNTER 2024-11-10 09:23 | Outpatient (CLI) | payer MEDICARE, SELFPAY ==
[2024-11-10 09:52] LABS: Hematocrit 46.7 % (37.0-46.0); Hemoglobin 15.4 g/dL (12.4-15.3); Immature Platelet Fraction Pct 2.6 % (1.0-7.0); Mean Corpuscular Volume 90.9 fL (78.0-102.0); Mean Platelet Volume 10.4 fl (8.7-11.0); Platelet Count Result 131 K/mm3 (150-420); Red Blood Count 5.14 M/mm3 (4.70-6.10); Red Cell Distribution Width 13.3 % (11.6-14.4); White Blood Count 5.2 K/mm3 (4.8-10.8)
[2024-11-10 10:06] LABS: Add Urine Microscopic? YES; Appearance Urine Clear (Clear); Bilirubin Urine Negative (Negative); Blood Urine Negative (Negative); Color Urine Light Yellow (Yellow); Glucose Urine UA 1+ (Negative); Ketones Urine Negative (Negative); Leukocyte Esterase Ur Negative (Negative); Nitrate Urine Negative (Negative); Protein Urine 1+ (Negative); Specific Grav Ur 1.025 (1.010-1.020)
[2024-11-10 10:11] LABS: Bacteria Urine Trace /hpf; Hyaline Casts Urine Present /lpf; RBC Urine None seen /hpf (0-2); Squamous Epithelial Cell Urine Rare /hpf (Few); WBC Urine 0-3 /hpf (0-3)
[2024-11-10 10:14] LABS: Alanine Aminotransferase 35 U/L (6-50); Albumin Level 4.2 g/dL (3.5-5.1); Alkaline Phosphatase 59 U/L (38-126); Anion Gap 4 mmol/L (4-12); Aspartate Amino Transferase 36 U/L (17-59); Bilirubin,Total 0.7 mg/dL (0.2-1.3); Blood Urea Nitrogen 17 mg/dL (9-20); Calcium 8.9 mg/dL (8.4-10.2); Carbon Dioxide 28 mmol/L (22-30); Chloride 106 mmol/L (98-107); Cholesterol 201 mg/dL (0-200); Estimated Glomerular Filt Rate > 60; Glucose 167 mg/dL (65-110); HDL Direct 37 mg/dL; LDL Cholesterol Calculated 131 mg/dL (<130); Osmolality Calculated 291 mOsm/kg (285-295); Potassium 4.5 mmol/L (3.4-5.0); Sodium 138 mmol/L (137-145); Total Protein 6.4 g/dL (6.3-8.2); Triglycerides 166 mg/dL (<150)
[2024-11-10 10:15] LABS: Creatinine Urine 131.3 mg/dL
--- OUTSIDE RECORDS SUMMARY | 2024-11-10 10:15 | XMS_ITS | Patient Health Record ---
Author Organization [facility] Address [address] [place], [place] [address] Care Team Providers Care Molder Machine Name Role Phone ZINA STORY Unavailable [phone] Donell Marcus Unavailable Unavailable CHASE WELLER Unavailable [phone] Allergies No Known Allergies Reason For Referral No Information Medications Medication SIG (Take, Route, Frequency, Duration) Notes Start Date End Date Status Xarelto 20 MG Oral for 90 Days Active Glimepiride 2 MG TAKE 1 TABLET BY BLAKE TH TWICE DAILY Oral for 30 Days Active Tamsulosin HCl 0.4 MG TAKE 1 CAPSULE BY MOUTH TWICE DAILY 1/2 HOUR FOLLOWING THE SAME MEAL EACH DAY Oral for 90 Days Active Ciprofloxacin HCl 500 MG TAKE 1 TABLET B Y MOUTH EVERY 12 HOURS Oral for 10 Days Active Immunizations Vaccine Route Administration Date Status Comme nts Influenza, seasonal, injecta ble, preservative free, 3 yrs and above Unknown 02/26/2023 Administered Vital Signs Height-cm 180.34 cm 09/23/2024 Weight-kg 99.79 kg 09/23/2024 Height 71.00 in 09/23/2024 Weight 220 lbs 09/23/2024 BMI 30.68 kg/m2 09/23/2024 Encounters Encounter Location Date Provider Diagnosis [address] [id number] 05/06/2024 CHASE WELLER Unspecified atherosclerosis of [place] arteries of extremities, bilateral legs I70.203 ; [...] with diabetic peripheral angiopathy without gangrene E11.[address] [id number] 11/13/2023 CHASE WELLER Type 2 diabetes jaylen itus with foot ulcer E11.621 ; Localized edema R60.0 ; 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 and Pain in right foot M79.[address] [id number] 07/01/2024 ZINA SNOOK Tinea unguium B35.1 ; Acquired keratosis [keratoderma] palmaris et plantaris L85.1 ; Atherosclerosis of [place] arteries of extremities with intermittent claudication, bilateral legs I70.213 ; Pain in right foot M79.671 and Pain in left foot M79.[address] [id number] 09/23/2024 ZINA SNOOK Tinea unguium B35.1 ; Acquired keratosis [keratoderma] palmaris et plantaris L85.1 ; Atherosclerosis of [place] arteries of extremities with intermittent claudication, bilateral legs I70.213 ; Pain in right foot M79.671 and Pain in left foot M79.672 Assessments Encounter Date Diagnosis (ICD Code) Assessment Notes Treatment Notes Treatment Clinical Notes Section Notes 11/13/2023 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 05/06/2024 Unspecified atherosclerosis of [place] arteries of extremities, bilateral legs (ICD-10 - [...] educated regarding both OTC and prescription treatments. 07/01/2024 Tinea unguium (ICD-10 - B35.1) Nails [...] cut and pared utilizing a #15 blade 09/23/2024 Tinea unguium (ICD-10 - B35.1) Nails 1-5 Bilateral were debrided extensively with nail nippers and emery board, reducing length and girth to pink healthy tissue with any subungual debris and necrotic tissue removed 09/23/2024 Acquired keratosis [keratoderma] palmaris et plantaris (ICD-10 - L85.1) A total of 2 corns or calluses, as described in the note above, were cut and pared utilizing a #15 blade 09/23/2024 Atherosclerosis of [place] arteries of extremities with intermittent claudication, bilateral legs (ICD-10 - I70.213) 07/01/2024 Atherosclerosis of [place] arteries of extremities with intermittent claudication, bilateral legs (ICD-10 - I70.213) 11/13/2023 Localized edema (ICD-10 - R60.0) 05/06/2024 Other hammer toe(s) (acquired), right foot [...] toe(s) (acquired), left foot (ICD-10 - M20.42) 11/13/2023 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 A dry sterile dressing was applied. The patient was given instruction on home dressing and told to use antibiotic ointment on the wound. The patient was instructed to minimize pressure on the wound and to call the office immediately if the wound should start to worsen. 07/01/2024 Pain in right foot (ICD-10 - M79.671) 09/23/2024 Pain in right foot (ICD-10 - M79.671) 09/23/2024 Pain in left foot (ICD-10 - M79.672) 07/01/2024 Pain in left foot (ICD-10 - M79.672) 05/06/2024 Pain in right toe(s) (ICD-10 - M79.674) 11/13/2023 Pain in right foot (ICD-10 - M79.671) 05/06/2024 Pain in left toe(s) (ICD-10 - [...] nausea, vomiting, fever. a Plan Of Treatment Next Appt Details Provider Name:HERIBERTO WOODWARD, 11/25/2024 09:10:00 AM, [address] [place] [address], [id number], Insurance Providers Payer Name Payer Address Payer Phone Subscriber Number Group Number Insured Name Patient Relationship to Insured Coverage Start Date Coverage End Date [employer] MedicareCom plete ([facility]) [address] [place], [place] [phone] [id number] MARIA T LAGUNA Self - patient is the insured
--- OUTSIDE RECORDS SUMMARY | 2024-11-10 10:15 | XMS_ITS ---
Author Organization [facility] Address [address] [place], [place] [phone] Care Team Providers Care Tool Salvage Worker Name Role Phone ZINA STORY Unavailable [phone] Marcus Marley Unavailable Unavailable REASON FOR VISIT *General care Encounters Encounter Location Date Provider Diagnosis [address] [id number] 07/15/2024 ZINA STORY Plan Of Treatment Next Appt Details Provider Name:HERIBERTO WOODWARD, 11/25/2024 09:10:00 AM, [address] [place] [address], [id number], Progress Notes * MARIA T BUSTILLOSDOB: [birth year] (74 yo M)Acc No.[id number]:07/15/2024 Patient: MARIA T CRUZ Provider: Bailey Story DPM :1950 A ge:74 Y S ex:Male Date:07/15/2024 Address:[address] [place], [place] [phone] Subjective: * Chief Complaints: * 1 . *General care. * Medical History: Objective: * Vitals: Assessment: Plan: * Treatment: * Billing Information: * Visit Code: * Procedure Codes: * Electronic signature of ZINA STORY DPM on 11/10/2024 at 10:14 AM CDT Sign off status: Pending * Provider: Bailey Story DPM Date: 0 07/15/2024 Generated for Bhanu jj/Emilie/Rubenitting on: 0 11/10/2024 10:14 AM CDT
[2024-11-10 10:20] LABS: MALB Creatinine Ratio 144.7 mg/g (0-30); Microalbumin Urine Random > 190.0 mg/L (0-16.7)
[2024-11-10 10:45] LABS: Prostate Specific Antigen 3.6 ng/mL (< OR = 4.0)
[2024-11-10 11:29] LABS: Hemoglobin A1C 7.8 % (<5.7)
== END 2024-11-10 09:24 | disposition home or self-care (01) ==
LOC: CHSLAB 09:26
PROVIDERS: PCP Internal Medicine; Visit Provider Internal Medicine
DX: I10 Essential (primary) hypertension (principal); E78.2 Mixed hyperlipidemia; E11.9 Type 2 diabetes mellitus without complications; Z12.5 Encounter for screening for malignant neoplasm of prostate
CPT/HCPCS: 36415; 80053; 80061; 81001; 82043; 83036; 84153; 84443; 85027; 85055; G0103

== ENCOUNTER 2025-02-16 09:23 | Outpatient (CLI) | payer MEDICARE, SELFPAY ==
--- OUTSIDE RECORDS SUMMARY | 2024-07-01 09:40 | XMS_ITS ---
Author Organization [facility] Address [address] [place], [place] [id number] Care Team Providers Care Liquor Maker Name Role Phone HERIBERTO DA SILVA Unavailable [phone] DonellMarcus victor Unavailable Unavailable ZINA STORY Unavailable [phone] REASON FOR VISIT The patient is concerned that the left great toe has a black spot underneath it. He is wondering ifit is infected., Patient presents for at-risk foot care . The patient has painful toenails and calluses that are causing difficulty with ambulation and shoegear. The onset is gradual Encounters Encounter Location Date Provider Diagnosis [address] [id number] 07/01/2024 ZINA STORY Tinea unguium B35.1 ; Acquired keratosis [keratoderma] palmaris et plantaris L85.1 ; Atherosclerosis of [place] arteries of extremities with intermittent claudication, bilateral [...] utilizing a #15 blade 07/01/2024 Atherosclerosis of [place]-na arteries of extremities with intermittent claudication, bilateral [...] At-Risk Foot care, sooner if problems develop. Progress Notes * MARIA T BUSTILLOSDOB: [birth year] (74 yo M)Acc No.[id number]:07/01/2024 Patient: Javier KINGDEON MARIA T Provider: Bailey Story DPM :1950 A ge:74 Y S ex:Male Date:07/01/2024 Address:[address] [place], [place] [id number] Subjective: * Chief Complaints: * 1 . The patient is concerned that the left great toe has a black spot underneath it. He is wondering if it is infected.. 2. Patient presents for at-risk foot care . The patient has painful toenails and calluses that are causing difficulty with ambulation and shoegear. The onset is gradual. * HPI: H PI: New Complaint E stablished patient presents with a new complaint., Patient complains of an issue to a large callus on the bottom of the left great toe that is discolored and infected. He states that this has happened before. He is also wanting his nails cut. , MA: josephine. * ROS: G eneral / Constitutional: Patient [...] alance difficulty, confusion, difficulty speaking, dizziness. * Medical History: * Medications: N one Objective: * Vitals: * Examination: P hysical Examination: General appearance: [...] - L85.1 3 . A therosclerosis of [place]esh-na arteries of extremities with intermittent claudication, bilateral [...] At-Risk Foot care, sooner if problems develop.) * Billing Information: * Visit Code: 30289 Office Visit, Est Pt., Level 3. * Procedure Codes: * Electronic signature of ZINA STORY DPM on 02/16/2025 at 10:06 AM CDT Sign off status: Pending * Provider: Bailey Story DPM Date: 0 07/01/2024 Generated for Bhanu jj/Emilie/eTsammi on: 0 02/16/2025 10:06 AM CDT History and Physical Notes * [...] also wanting his nails cut. , MA: [facility] Examination Category Sub-Category Detail Notes Category Not [...]
--- OUTSIDE RECORDS SUMMARY | 2024-07-15 03:00 | XMS_ITS ---
Author Organization [facility] Address [address] [place], [place] [address] Care Team Providers Care Education Assistant Name Role Phone HERIBERTO DA SILVA Unavailable [phone] Marcus Marley Unavailable Unavailable SNOOK, ZINA Unavailable [phone] REASON FOR VISIT *General care Encounters Encounter Location Date Provider Diagnosis [address] [id number] 07/15/2024 ZINA STORY Plan Of Treatment No Information Progress Notes * CHRISMARIA T BECKHAMDOB: [birth year] (74 yo M)Acc No.[id number]:07/15/2024 Patient: MARIA T CRUZ Provider: Bailey Story DPM :1950 A ge:74 Y S ex:Male Date:07/15/2024 Address:[address] [place], [place] [phone] Subjective: * Chief Complaints: * 1 . *General care. * Medical History: Objective: * Vitals: Assessment: Plan: * Treatment: * Billing Information: * Visit Code: * Procedure Codes: * Electronic signature of ZINA STORY DPM on 02/16/2025 at 10:05 AM CDT Sign off status: Pending * Provider: Bailey Story DPM Date: 07/15/2024 Generated for Printi ng/Faxing/eTransmitting on: 0 02/16/2025 10:05 AM CDT
--- OUTSIDE RECORDS SUMMARY | 2024-11-25 04:10 | XMS_ITS ---
Author Organization [facility] Address [address] [place], [place] [address] Care Team Providers Care Extension Educator Name Role Phone DA SILVA, HERIBERTO Unavailable [phone] Marcus Marley Unavailable Unavailable Allergies No Known [...] Active Encounters Encounter Location Date Provider Diagnosis [address] [id number] 11/25/2024 HERIBERTO DAS ILVA Tinea unguium B35.1 ; Pain in right foot M79.671 ; Pain in left foot M79.672 ; Atherosclerosis of [place] arteries of extremities with intermittent claudication, bilateral [...] foot (ICD-10 - M79.672) 11/25/2024 Atherosclerosis of [place] arteries of extremities with intermittent claudication, bilateral [...] MARIA T BUSTILLOSDOB: [birth year] (74 yo M)Acc No.[id number]:11/25/2024 Patient: Javier BURT MARIA T Provider: Fredy DA SILVA :1950 A ge:74 Y S ex:Male Date:11/25/2024 Address:[address] [place] [address] Subjective: * Chief Complaints: * 1 . [...] - M79.672 4 . A therosclerosis of [place] arteries of extremities with intermittent claudication, bilateral [...] LESIONS, 2 TO 4, Modifiers: Q8 , 42902 DEBRIDE NAIL, 6 OR MORE, Modifiers: 59 , Q8 * Follow Up: 1 0 - 12 weeks (Reason: At-Risk Foot care, sooner if problems develop.) * Billing Information: * Visit Code: * Procedure Codes: 48134 TRIM SKIN LESIONS, 2 TO 4. Modifiers: Q8 83340 DEBRIDE NAIL, 6 OR MORE. Modifiers: 59, Q8 * Electronic signature of CELESTE DA SILVA DPM on 02/16/2025 at 10:06 AM CDT Sign off status: Pending * Provider: Fredy DA SILVA Date: 0 11/25/2024 Generated for Bhanu Del Rosario/Latosha on: 0 02/16/2025 10:06 AM CDT History [...]
--- OUTSIDE RECORDS SUMMARY | 2025-02-10 03:30 | XMS_ITS ---
Author Organization [facility] Address [address] [place], [place] [address] Care Team Providers Care Specialty Transformer Assembler Name Role Phone DA SILVA, HERIBERTO Unavailable [phone] Marcus Marley Unavailable Unavailable REASON FOR VISIT *General care Encounters Encounter Location Date Provider Diagnosis [address] [id number] 02/10/2025 HERIBERTO DA SILVA Tinea unguium B35.1 ; Pain in right foot M79.671 ; Pain in left foot M79.672 ; Atherosclerosis of [place] arteries of extremities with intermittent claudication, bilateral [...] foot (ICD-10 - M79.672) 02/10/2025 Atherosclerosis of [place] arteries of extremities with intermittent claudication, bilateral [...] MARIA T BUSTILLOSDOB: [birth year] (74 yo M)Acc No.[id number]:02/10/2025 Patient: MARIA T CRUZ Provider: Fredy DA SILVA :1950 A ge:74 Y S ex:Male Date:02/10/2025 Address:[address] [place] [address] Subjective: * Chief Complaints: * 1 . [...] - M79.672 4 . A therosclerosis of [place] arteries of extremities with intermittent claudication, bilateral [...] CELESTE DA SILVA DPM on 02/16/2025 at 10:05 AM CDT Sign off status: Pending * Provider: Fredy DA SILVA Date: 0 02/10/2025 Generated for Bhanu Mullins on: 0 02/16/2025 10:05 AM CDT History and Physical Notes * [...]
[2025-02-16 09:46] LABS: Hematocrit 46.8 % (37.0-46.0); Hemoglobin 15.3 g/dL (12.4-15.3); Immature Platelet Fraction Pct 3.1 % (1.0-7.0); Mean Corpuscular HGB Conc 32.7 g/dL (32-36); Mean Corpuscular Hemoglobin 30.1 pg (27.0-31.0); Mean Corpuscular Volume 91.9 fL (78.0-102.0); Platelet Count Result 137 K/mm3 (150-420); Red Blood Count 5.09 M/mm3 (4.70-6.10); White Blood Count 6.2 K/mm3 (4.8-10.8)
--- OUTSIDE RECORDS SUMMARY | 2025-02-16 10:06 | XMS_ITS | Patient Health Record ---
Author Organization [facility] Address [address] [place], [place] [address] Care Team Providers Care Youth Teacher Name Role Phone HERIBERTO DA SILVA Unavailable [phone] DonellMarcus victor Unavailable Unavailable MATEUSJavier ZINA Unavailable [phone] CHASE WELLER Unavailable [phone] Allergies No Known Allergies Reason For Referral [...] TWICE DAILY Oral; Duration: 30 Days Active Immunizations Vaccine Route Administration Date Status Comme nts Influenza, seasonal, injecta ble, preservative free, 3 yrs and above Unknown 02/26/2023 Administered Vital Signs Height-cm 180.34 cm 09/23/2024 Weight-kg 99.79 kg 09/23/2024 Height 71.00 in 09/23/2024 Weight 220 lbs 09/23/2024 BMI 30.68 kg/m2 09/23/2024 Encounters Encounter Location Date Provider Diagnosis [address] [id number] 05/06/2024 CHASE WELLER Unspecified atherosclerosis of [place] arteries of extremities, bilateral legs I70.203 ; [...] with diabetic peripheral angiopathy without gangrene E11.[address] [id number] 07/01/2024 ZINA RAJESHK Tinea unguium B35.1 ; Acquired keratosis [keratoderma] palmaris et plantaris L85.1 ; Atherosclerosis of [place] arteries of extremities with intermittent claudication, bilateral legs I70.213 ; Pain in right foot M79.671 and Pain in left foot M79.[address] [id number] 11/25/2024 HERIBERTO DA SILVA Tinea unguium B35.1 ; Pain in right foot M79.671 ; Pain in left foot M79.672 ; Atherosclerosis of [place] arteries of extremities with intermittent claudication, bilateral legs I70.213 and Acquired keratosis [keratoderma] palmaris et plantaris L85.[address] [id number] 09/23/2024 ZINA SNRAJESHK Tinea unguium B35.1 ; Acquired keratosis [keratoderma] palmaris et plantaris L85.1 ; Atherosclerosis of [place] arteries of extremities with intermittent claudication, bilateral legs I70.213 ; Pain in right foot M79.671 and Pain in left foot M79.672 Assessments Encounter Date Diagnosis (ICD Code) Assessment Notes Treatment Notes Treatment Clinical Notes Section Notes 05/06/2024 Unspecified atherosclerosis of [place] arteries of extremities, bilateral legs (ICD-10 - [...] cut and pared utilizing a #15 blade 11/25/2024 Tinea unguium (ICD-10 - B35.1) Nails 1-5 Bilateral were debrided extensively with nail nippers and emery board, reducing length and girth to pink healthy tissue with any subungual debris and necrotic tissue removed 11/25/2024 Pain in right foot (ICD-10 - M79.671) 11/25/2024 Pain in left foot (ICD-10 - M79.672) 09/23/2024 Atherosclerosis of [place] arteries of extremities with intermittent claudication, bilateral legs (ICD-10 - I70.213) 07/01/2024 Atherosclerosis of [place] arteries of extremities with intermittent claudication, bilateral legs (ICD-10 - I70.213) 05/06/2024 Other hammer toe(s) (acquired), right foot [...] toe(s) (acquired), left foot (ICD-10 - M20.42) 07/01/2024 Pain in right foot (ICD-10 - M79.671) 11/25/2024 Atherosclerosis of [place] arteries of extremities with intermittent claudication, bilateral legs (ICD-10 - I70.213) 09/23/2024 Pain in right foot (ICD-10 - M79.671) 09/23/2024 Pain in left foot (ICD-10 - M79.672) 11/25/2024 Acquired keratosis [keratoderma] palmaris et plantaris (ICD-10 - L85.1) A total of 2 corns or calluses, as described in the note above, were cut and pared utilizing a #15 blade 07/01/2024 Pain in left foot (ICD-10 - [...] nausea, vomiting, fever. a Plan Of Treatment No Information Insurance Providers Payer Name Payer Address Payer Phone Subscriber Number Group Number Insured Name Patient Relationship to Insured Coverage Start Date Coverage End Date [employer] MedicareCom plete ([facility]) [address] [place], [place] [id number] [id number] MARIA T LAGUNA Self - patient is the insured
--- OUTSIDE RECORDS SUMMARY | 2025-02-16 10:06 | XMS_ITS | Encounter Summary ---
Author Organization [facility] Address [address] [place] [address] Care Team Providers Care Pals Specialist Name Role Phone Marcus Marley MD Primary Care Provider [phone] Bertin Mustafa MD Unavailable [phone] Encounter Details Date Type Department Care Team (Late Contact Info) Description 06/18/2023 Prep for Procedure [facility] [address] [place] [address] [phone] Bertin Mustafa MD [address] [place] [phone] Social History Tobacco Use Types Packs/Day Years Used Date Smoking Tobacco: Never Assessed Sex and Gender Information Value Date Recorded Sex Assigned at Not on file Legal Sex Male 9:23 AM CDT Gender Identity Not on file Sexual Orientation Not on file documented as of this encounter Plan of Treatment Upcoming Encounters Date Type Department Care Team (Late Contact Info) Description 12/22/2025 12:45 PM CDT Office Visit [facility] [address] [place] [address] [phone] Bertin Mustafa MD [address] [place] [address] documented as of this encounter Visit Diagnoses Not on filedocumented in this encounter Care Teams Pals Specialist Relationship Specialty Start Date End Date Marcus Marley MD [address] [place] [phone] PCP - General INTERNAL MEDICINE 03/31/23 Bertin Mustafa MD [address] [place] [phone] EP Public Information Officer CLINICAL CARDIAC ELECTROPHYSIOLOGY 12/16/24 documented as of this encounter
--- OUTSIDE RECORDS SUMMARY | 2025-02-16 10:06 | XMS_ITS | Clinical Summary ---
Author Organization [facility] Address [address] [place] [address] Care Team Providers Care Slot Operations Manager Name Role Phone Marcus Marley MD Primary Care Provider [phone] Bertin Mustafa MD Unavailable [phone] Allergies No known active allergies Medications glimepiride (AMARYL) 2 MG tablet Take 1 tablet (2 mg total) by mouth every morning before breakfast. 11/09/2022 Active tamsulosin (FLOMAX) 0.4 MG Cap Take 1 capsule (0.4 mg total) by mouth daily. 03/14/2023 Active ELIQUIS 2.5 MG tablet Take 1 tablet (2.5 mg total) by mouth 2 (two) times daily. 180 tablet 2 03/31/2023 Active doxazosin (CARDURA) 2 MG tablet Take 1 tablet (2 mg total) by mouth nightly at bedtime. 90 tablet 3 06/19/2023 Active Continuous Blood Gluc Sensor (FREESTYLE BRENDON 2 SENSOR) Misc 1 strip by Other route as needed (prn). 06/23/2023 Active nitroglycerin (NITROSTAT) 0.[address] 1 tablet (0.4 mg total) under the tongue every 5 (five) minutes as needed for Chest Pain. 50 tablet 2 07/03/2023 Active atorvastatin (LIPITOR) 40 MG tablet Take 1 tablet (40 mg total) by mouth nightly at bedtime. 30 tablet 11 07/03/2023 Active metoprolol succinate ER (TOPROL-XL) 25 MG 24 hr tablet Take 0.5 tablets (12.5 mg total) by mouth daily. 30 tablet 11 07/03/2023 Active rosuvastatin (CRESTOR) 5 MG tablet Take 1 tablet (5 mg total) by mouth nightly at bedtime. 11/10/2024 Active Active Problems Problem Noted Date Diagnosed Date Coronary artery disease invo lving [place] coronary artery of [place] heart without angina pectoris 08/13/2023 Abnormal stress test 06/14/2023 Longstanding persistent atri al fibrillation (CMS/HCC HHS/HCC) 04/05/2023 Anticoagulation adequate 04/05/2023 HTN (hypertension), benign 04/05/2023 Renal insufficiency 04/05/2023 Overview (04/05/2023): Creat 2.2 --- 02/01/2023 Resolved Problems Problem Noted Date Diagnosed Date Resolved Date Preop cardiovascular exam 08/13/2023 Encounters Date Type Department Care Team Description 12/16/2024 2:15 PM CDT Office Visit [facility] [address] [place] [address] Bertin Mustafa MD Follow Up 12/16/2024 Travel 12/15/2024 Telephone [facility] [address] [place] [address] Bertin Mustafa MD Appointment Reminder from Last 3 Months Social History Tobacco Use Types Packs/Day Years Used Date Smoking Tobacco: Never Assessed Sex and Gender Information Value Date Recorded Sex Assigned at Not on file Legal Sex Male 9:23 AM CDT Gender Identity Not on file Sexual Orientation Not on file Last Filed Vital Signs Vital Sign Reading Time Taken Comments Blood Pressure 140/94 12/16/2024 2:02 PM CDT Pulse 75 12/16/2024 2:02 PM CDT Temperature 36.1 C (97 F) 07/03/2023 10:59 AM OIL WINTERIZER Respiratory Rate 18 12/16/2024 2:02 PM CDT Oxygen Saturation 95% 07/03/2023 10:59 AM OIL WINTERIZER Inhaled Oxygen Concentration - - Weight 104.3 kg (230 lb) 12/16/2024 2:02 PM CDT Height 177.8 cm (5' 10) 12/16/2024 2:02 PM CDT Body Mass Index 33 12/16/2024 2:02 PM CDT Plan of Treatment Upcoming Encounters Date Type Department Care Team (Late st Contact Info) Description 12/22/2025 12:45 PM CDT Office Visit [facility] [address] [place] [address] Bertin Mustafa MD [address] [place] [address] Health Maintenance Due Date Last Done Comments Colorectal Cancer Screening Colonoscopy (10 Years) 1950 Hepatitis C 1969 Zoster Vaccines (1 of 2) 2001 RSV Immunization or 60+ Years (1 - Risk 60-74 years 1-dose series) 2011 Annual Medicare Wellness Visit 2016 Pneumococcal Vaccine: 50+ Years (3 of 3 - PCV20 or PCV21) 04/30/2021 04/30/2016, 07/27/2012 ASCVD LDL 02/01/2024 01/31/2023 COVID-19 Vaccine (3 - 2024-2 6 season) 2025 01/15/2021, 12/25/2020 DTaP, Tdap and Td Vaccines ( 2 - Td or Tdap) 03/07/2030 03/07/2020 Meningococcal B Vaccine Aged Out No l onger eligible based on patient's age to complete this topic Meningococcal Vaccine Aged Out No saleem julio eligible based on patient's age to complete this topic RSV Immunizations Under 20 Months Aged Out No longer eligible b ased on patient's age to complete this topic Procedures Procedure Name Priority Date/Time Associated Diagnosis Comments LIPID PANEL Routine 01/31/2023 4:04 AM CDT from Last 3 Months or Most Recently Relevant to Health Maintenance Results * (ABNORMAL) LIPID PANEL (01/31/2023 4:04 AM CDT) CHOLESTEROL 132 MG/DL 06/04/2023 10:[address] [facility] Comment:DESIRABLE: <200 TRIGLYCERIDES 264 MG/DL 06/04/2023 10:[address] [facility] Comment:200-499 HIGH HDL 14(L) >39 MG/DL 06/04/2023 10:[address] [facility] LDL (CALCULATED) 65 MG/DL 06/04/19 24 10:[address] [facility] Comment:<100 OPTIMAL VLDL CALCULATION 53 MG/DL 06/04/19 24 10:[address] [facility] Comment:REFERENCE RANGE NOT ESTABLISHED CHOL/HDL RATIO 9.4 06/04/2023 10:[address] [facility] Comment:REFERENCE RANGE NOT ESTABLISHED LDL/HDL 4.6 06/04/2023 10:[address] [facility] Comment:REFERENCE RANGE NOT ESTABLISHED NON HDL CHOLESTEROL 118 MG/DL 06/04/2023 10:[address] [facility] Comment:REFERENCE RANGE NOT ESTABLISHED 01/31/2023 4:04 AM CDT Karishma Garcia MD LABORATORY Final Result Performing Organization Address City/State/[facility] Co de Phone Number [facility] [address] [place] [address], [phone] from Last 3 Months or Most Recently Relevant to Health Maintenance Insurance [facility] Advance Directives * Full Code (Latest Code Status on File) Date Activated Date Inactivated Comments 07/03/2023 2:27 PM 07/03/2023 6:01 PM Care Teams Slot Operations Manager Relationship Specialty Start Date End Date Donell, Marcus, MD [address] [place] [address] PCP - General INTERNAL MEDICINE 03/31/23 Bertin Mustafa MD [address] [place] [id number] EP Orthopedic Shoe Fitter CLINICAL CARDIAC ELECTROPHYSIOLOGY 12/16/24
[2025-02-16 10:19] LABS: Hemoglobin A1C 8.4 % (<5.7)
[2025-02-16 10:47] LABS: Alanine Aminotransferase 34 U/L (6-50); Albumin Level 4.4 g/dL (3.5-5.1); Alkaline Phosphatase 59 U/L (38-126); Anion Gap 9 mmol/L (4-12); Aspartate Amino Transferase 34 U/L (17-59); Bilirubin,Total 0.8 mg/dL (0.2-1.3); Blood Urea Nitrogen 14 mg/dL (9-20); CRP < 0.5 mg/dL (<1.0); Calcium 9.5 mg/dL (8.4-10.2); Carbon Dioxide 28 mmol/L (22-30); Chloride 102 mmol/L (98-107); Cholesterol 211 mg/dL (0-200); Estimated Glomerular Filt Rate > 60; Glucose 159 mg/dL (65-110); HDL Direct 42 mg/dL; Osmolality Calculated 291 mOsm/kg (285-295); Potassium 4.8 mmol/L (3.4-5.0); Sodium 139 mmol/L (137-145); Total Protein 7.1 g/dL (6.3-8.2); Triglycerides 163 mg/dL (<150)
[2025-02-16 13:22] LABS: Immature Granulocyte Percent A 0.3 % (0.0-0.0); Lymphocytes Absolute Auto 1.38 K/mm3 (1.10-4.50); Nucleated Red Blood Cells Absolute Auto 0.00 K/mm3 (0.00-0.00); Nucleated Red Blood Cells Perc 0.0 % (0-0.0)
== END 2025-02-16 09:24 | disposition home or self-care (01) ==
LOC: CHSLAB 09:26
PROVIDERS: PCP Internal Medicine; Visit Provider Internal Medicine
DX: E11.9 Type 2 diabetes mellitus without complications (principal); I10 Essential (primary) hypertension; E78.5 Hyperlipidemia, unspecified; R21 Rash and other nonspecific skin eruption
CPT/HCPCS: 36415; 80053; 80061; 83036; 85025; 85027; 85055; 86140

== ENCOUNTER 2025-03-14 08:15 | Outpatient (NON) | payer MEDICARE, SELFPAY ==
--- OUTSIDE RECORDS SUMMARY | 2023-12-04 03:10 | XMS_ITS ---
Author Organization [facility] Address [address] [place], [place] [phone] Care Team Providers Care Mis Manager Name Role Phone HERIBERTO DA SILVA Unavailable [phone] Marcus Marley Unavailable Unavailable CHASE WELLER Unavailable [phone] REASON FOR VISIT *General care Encounters Encounter Location Date Provider Diagnosis [address] [id number] 12/04/2023 CHASE WELLER Plan Of Treatment Next Appt Details Provider Name:HERIBERTO WOODWARD, 04/28/2025 08:10:00 AM, [address] [place] [address], [id number], Progress Notes * MARIA T BUSTILLOSDOB: [birth year] (74 yo M)Acc No.[id number]:12/04/2023 Patient: MARIA T CRUZ Provider: Zara WELLER :1950 A ge:73 Y S ex:Male Date:12/04/2023 Address:[address] [place], [place] [phone] Subjective: * Chief Complaints: * 1 . *General care. * Medical History: Objective: * Vitals: Assessment: Plan: * Treatment: * Billing Information: * Visit Code: * Procedure Codes: * Electronic signature of RAOUL WELLER DPM on 03/15/2025 at 08:28 AM CDT Sign off status: Pending * Provider: Zara WELLER Date: 0 12/04/2023 Generated for Bhanu jj/Emilie/Latosha on: 1 08:28 AM CDT
--- OUTSIDE RECORDS SUMMARY | 2024-05-06 03:10 | XMS_ITS ---
Author Organization [facility] Address [address] [place], [place] [address] Care Team Providers Care Stewarding Supervisor Name Role Phone DA SILVAHERIBERTO MOSES Unavailable [phone] Marcus Marley Unavailable Unavailable CHASE WELLER Unavailable [phone] REASON FOR VISIT *General care Encounters Encounter Location Date Provider Diagnosis [address] [id number] 05/06/2024 CHASE WELLER Unspecified atherosclerosis of [place] arteries of extremities, bilateral legs I70.203 ; [...] Notes Section Notes 05/06/2024 Unspecified atherosclerosis of [place] arteries of extremities, bilateral legs (ICD-10 - [...] Treatment Notes Assessment Notes Unspecified atherosclerosis of [place] arteries of extremities, bilateral legs Patient educated [...] Up: 3 Months, Reason: Provider Name:HERIBERTO WOODWARD, 04/28/2025 08:10:00 AM, [address] [place] [address], [id number], Progress Notes * MARIA T BUSTILLOSDOB: [birth year] (74 yo M)Acc No.[id number]:05/06/2024 Patient: Javier MARIA T DALLAS Provider: Zara WELLER :1950 A ge:74 Y S ex:Male Date:05/06/2024 Address:[address] [place], [place] [phone] Subjective: * Chief Complaints: * 1 . *General care. * HPI: H PI: General care P atient presents to the office for diabetic foot care. Patient states that their nails are thickened, elongated and painful. Patient states that it is aggravated by shoe gear. Onset is gradual., Patient is taking prescription blood thinners., Date last seen by Dr. Marley was 01/2024., Initials [facility]. * ROS: G eneral / Constitutional: Patient denies w eakness. R espiratory: Patient denies c hronic cough, shortness of breath, sputum production. C ardiovascular: Patient denies c hest pain, history of [place], irregular heartbeat. M usculoskeletal: Patient complains of h ammertoes, muscle stiffness, bunions. P eripheral Vascular: Patient denies b lanching of skin, cold extremities, decreased sensation in extremities. S kin: Patient complains of u lcerations. ? N eurologic: Patient denies d izziness, gait abnormality, headache. * Medical History: Objective: * Vitals: * Examination: P hysical Examination: V ascular: [...] (Primary) 2 . U nspecified atherosclerosis of [place] arteries of extremities, bilateral legs - I70.203 [...] * Treatment: 2. U nspecified atherosclerosis of [place] arteries of extremities, bilateral legs Notes: Patient [...] fever. a * Follow Up: 3 Months * Billing Information: * Visit Code: 47573 Office Visit, Est Pt., Level 3. * Procedure Codes: * Electronic signature of RAOUL WELLER DPM on 03/15/2025 at 08:28 AM CDT Sign off status: Pending * Provider: Zara WELLER Date: 07/07/2023 Generated for Bhanu Mullins on: 08:28 AM CDT History and Physical Notes * HPI (History [...]
--- OUTSIDE RECORDS SUMMARY | 2024-06-21 04:00 | XMS_ITS ---
Author Organization [facility] Address [address] [facility] [address] [place], [place] [address] Care Team Providers Care Stunt Driver Name Role Phone HERIBERTO DA SILVA Unavailable [phone] Marcus Marley Unavailable Unavailable ZINA STORY Unavailable [phone] REASON FOR VISIT left toe infected D+ Encounters Encounter Location Date Provider Diagnosis [facility] [place] [address] [address] [facility] 5 [place], [place] [phone] 06/21/2024 ZINA STORY Plan Of Treatment Next Appt Details Provider Name:HERIBERTO WOODWARD, 04/28/2025 08:10:00 AM, [address] [place] [address], [id number], Progress Notes * MARIA T BUSTILLOSDOB: [birth year] (74 yo M)Acc No.[id number]:06/21/2024 Patient: Javier DALLAS MARIA T Provider: Bailey Story DPM :1950 A ge:74 Y S ex:Male Date:06/21/2024 Address:[address] [place], [place] [phone] Subjective: * Chief Complaints: * 1 . left toe infected D+. * Medical History: Objective: * Vitals: Assessment: Plan: * Treatment: * Billing Information: * Visit Code: * Procedure Codes: * Electronic signature of ZINA STORY DPM on 03/15/2025 at 08:27 AM CDT Sign off status: Pending * Provider: Bailey Story DPM Date: 0 06/21/2024 Generated for Bhanu jj/Emilie/Latosha on: 1 08:27 AM CDT
--- OUTSIDE RECORDS SUMMARY | 2024-07-01 09:40 | XMS_ITS ---
Author Organization [facility] Address [address] [place], [place] [phone] Care Team Providers Care Combine Inspector Name Role Phone HERIBERTO DA SILVA Unavailable [phone] DonellMarcus victor Unavailable Unavailable ZINA STORY Unavailable [phone] REASON FOR VISIT The patient is concerned that the left great toe has a black spot underneath it. He is wondering ifit is infected., Patient presents for at-risk foot care . The patient has painful toenails and calluses that are causing difficulty with ambulation and shoegear. The onset is gradual Encounters Encounter Location Date Provider Diagnosis [address] [id number] 07/01/2024 ZINA STORY Tinea unguium B35.1 ; Acquired keratosis [keratoderma] palmaris et plantaris L85.1 ; Atherosclerosis of [place] arteries of extremities with intermittent claudication, bilateral [...] utilizing a #15 blade 07/01/2024 Atherosclerosis of [place] arteries of extremities with intermittent claudication, bilateral [...] develop. Provider Name:HERIBERTO WOODWARD, 04/28/2025 08:10:00 AM, [address] [place] [address], [id number], Progress Notes * MARIA T BUSTILLOSDOB: [birth year] (74 yo M)Acc No.[id number]:07/01/2024 Patient: MARIA T CRUZ Provider: Bailey Story DPM :1950 A ge:74 Y S ex:Male Date:07/01/2024 Address:[address] [place] [address] Subjective: * Chief Complaints: * 1 . [...] - L85.1 3 . A therosclerosis of [place] arteries of extremities with intermittent claudication, bilateral [...] develop.) * Billing Information: * Visit Code: 14211 Office Visit, Est Pt., Level 3. * Procedure Codes: * Electronic signature of ZINA STORY DPM on 03/15/2025 at 08:27 AM CDT Sign off status: Pending * Provider: Bailey Story DPM Date: 0 07/01/2024 Generated for Bhanu jj/Emilie/Latosha on: 08:27 AM CDT History and Physical Notes * [...] also wanting his nails cut. , MA: [facility] Examination Category Sub-Category Detail Notes Category Not [...]
--- OUTSIDE RECORDS SUMMARY | 2024-07-15 03:00 | XMS_ITS ---
Author Organization [facility] Address [address] [place], [place] [phone] Care Team Providers Care Cutter Finisher Name Role Phone DA SILVAHERIBERTO MOSES Unavailable [phone] Marcus Marley Unavailable Unavailable ZINA STORY Unavailable [phone] REASON FOR VISIT *General care Encounters Encounter Location Date Provider Diagnosis [address] [id number] 07/15/2024 ZINA STORY Plan Of Treatment Next Appt Details Provider Name:HERIBERTO WOODWARD, 04/28/2025 08:10:00 AM, [address] [place] [address], [id number], Progress Notes * MARIA T BUSTILLOSDOB: [birth year] (74 yo M)Acc No.[id number]:07/15/2024 Patient: MARIA T CRUZ Provider: Bailey Story DPM :1950 A ge:74 Y S ex:Male Date:07/15/2024 Address:[address] [place], [place] [phone] Subjective: * Chief Complaints: * 1 . *General care. * Medical History: Objective: * Vitals: Assessment: Plan: * Treatment: * Billing Information: * Visit Code: * Procedure Codes: * Electronic signature of ZINA STORY DPM on 03/15/2025 at 08:28 AM CDT Sign off status: Pending * Provider: Bailey Story DPM Date: 0 07/15/2024 Generated for Bhanu jj/Emilie/Latosha on: 1 08:28 AM CDT
--- OUTSIDE RECORDS SUMMARY | 2024-11-25 04:10 | XMS_ITS ---
Author Organization [facility] Address [address] [place], [place] [id number] Care Team Providers Care Air Bag Buffer Name Role Phone DA SILVA, HERIBERTO Unavailable [phone] Marcus Marley Unavailable Unavailable Allergies No Known Allergies REASON FOR VISIT *General care Medications Medication SIG (Take, Route, Frequency, Duration) Notes Start Date End Date Status Tamsulosin HCl 0.4 MG TAKE 1 CAPSULE BY MOUTH TWICE DAILY 1/2 HOUR FOLLOWING THE SAME MEAL EACH DAY Oral; Duration: 90 Days Active Ciprofloxacin HCl 500 MG TAKE 1 TABLET B Y MOUTH EVERY 12 HOURS Oral; Duration: 10 Days Active Xarelto 20 MG Oral; Duration: 90 Days Active Glimepiride 2 MG TAKE 1 TABLET BY BLAKE TH TWICE DAILY Oral; Duration: 30 Days Active Encounters Encounter Location Date Provider Diagnosis [address] [id number] 11/25/2024 HERIBERTO DA SILVA Tinea unguium B35.1 ; Pain in right foot M79.671 ; Pain in left foot M79.672 ; Atherosclerosis of [place] arteries of extremities with intermittent claudication, bilateral [...] foot (ICD-10 - M79.672) 11/25/2024 Atherosclerosis of [place] arteries of extremities with intermittent claudication, bilateral [...] develop. Provider Name:HERIBERTO WOODWARD, 04/28/2025 08:10:00 AM, [address] [place] [address], [id number], Progress Notes * MARIA T BUSTILLOSDOB: [birth year] (74 yo M)Acc No.[id number]:11/25/2024 Patient: MARIA T CRUZ Provider: Fredy DA SILVA :1950 A ge:74 Y S ex:Male Date:11/25/2024 Address:[address] [place], [place] [id number] Subjective: * Chief Complaints: * 1 . [...] confusion, difficulty speaking, dizziness. * Medical History: M edical History Verified. * Family History: N o Family History documented.. * Social History: M igrated Social History: M igrated Social History: Smoking Status : Never used tobacco , Alcohol intake : , History of tobacco use :. * Medications: T aking Xarelto 20 MG Tablet Oral , Taking Glimepiride 2 MG Tablet TAKE 1 TABLET BY MOUTH TWICE DAILY Oral , Taking Tamsulosin HCl 0.4 MG Capsule TAKE 1 CAPSULE BY MOUTH TWICE DAILY 1/2 HOUR FOLLOWING THE SAME MEAL EACH DAY Oral , Taking Ciprofloxacin HCl 500 MG Tablet TAKE 1 TABLET BY MOUTH EVERY 12 HOURS Oral , Medication List reviewed and reconciled with the patient * Allergies: N .K.D.A. Objective: * Vitals: * Examination: P hysical [...] - M79.672 4 . A therosclerosis of [place] arteries of extremities with intermittent claudication, bilateral [...] SKIN LESIONS, 2 TO 4, Modifiers: Q8 , 76589 DEBRIDE NAIL, 6 OR MORE, Modifiers: 59 , Q8 * Follow Up: 1 0 - 12 weeks (Reason: At-Risk Foot care, sooner if problems develop.) * Billing Information: * Visit Code: * Procedure Codes: 65196 TRIM SKIN LESIONS, 2 TO 4. Modifiers: Q8 35835 DEBRIDE NAIL, 6 OR MORE. Modifiers: 59, Q8 * Electronic signature of CELESTE DA SILVA DPM on 03/15/2025 at 08:27 AM CDT Sign off status: Pending * Provider: Fredy DA SILVA Date: 0 11/25/2024 Generated for Bhanu Mullins on: 1 08:27 AM CDT History and Physical Notes [...]
--- OUTSIDE RECORDS SUMMARY | 2025-02-10 03:30 | XMS_ITS ---
Author Organization [facility] Address [address] [place], [place] [address] Care Team Providers Care Termination Clerk Name Role Phone DA SILVA, HERIBERTO Unavailable [phone] Marcus Marley Unavailable Unavailable REASON FOR VISIT *General care Encounters Encounter Location Date Provider Diagnosis [address] [id number] 02/10/2025 HERIBERTO DA SILVA Tinea unguium B35.1 ; Pain in right foot M79.671 ; Pain in left foot M79.672 ; Atherosclerosis of [place] arteries of extremities with intermittent claudication, bilateral [...] foot (ICD-10 - M79.672) 02/10/2025 Atherosclerosis of [place] arteries of extremities with intermittent claudication, bilateral [...] develop. Provider Name:HERIBERTO WOODWARD, 04/28/2025 08:10:00 AM, [address] [place] [address], [id number], Progress Notes * MARIA T BUSTILLOSDOB: [birth year] (74 yo M)Acc No.[id number]:02/10/2025 Patient: Javier MARIA T DALLAS Provider: Fredy DA SILVA :1950 A ge:74 Y S ex:Male Date:02/10/2025 Address:[address] [place] [address] Subjective: * Chief Complaints: * 1 . *General care. * ROS: G eneral / Constitutional: Patient [...] confusion, difficulty speaking, dizziness. * Medical History: Objective: * Vitals: * [...] - M79.672 4 . A therosclerosis of [place] arteries of extremities with intermittent claudication, bilateral [...] CELESTE DA SILVA DPM on 03/15/2025 at 08:28 AM CDT Sign off status: Pending * Provider: Fredy DA SILVA Date: 0 02/10/2025 Generated for Bhanu jj/Emilie/Latosha on: 1 08:28 AM CDT History and Physical Notes * Examination Category [...]
--- OUTSIDE RECORDS SUMMARY | 2025-02-17 06:40 | XMS_ITS ---
Author Organization [facility] Address [address] [place], [place] [address] Care Team Providers Care Mechanical Sound Technician Name Role Phone AVINASH HERIBERTO Unavailable [phone] Donell Marcus Unavailable Unavailable Allergies No Known [...] Duration: 10 Days Active Glimepiride 2 MG TAKE 1 TABLET BY BLAKE TH TWICE DAILY Oral; Duration: 30 Days Active Xarelto 20 MG Oral; Duration: 90 Days Active Vital Signs Height 71.00 in 02/17/2025 Weight 220 lbs 02/17/2025 BMI 30.68 kg/m2 02/17/2025 Height-cm 180.34 cm 02/17/2025 Weight-kg 99.79 kg 02/17/2025 Encounters Encounter Location Date Provider Diagnosis [address] [id number] 02/17/2025 HERIBERTO DA SILVA Fungal infection of nail B35.1 ; Pain in right toe(s) M79.674 ; Pain in left toe(s) M79.675 and Atherosclerosis of [place] arteries of extremities with intermittent claudication, bilateral legs I70.213 Assessments Encounter Date Diagnosis (ICD Code) Assessment Notes Treatment Notes Treatment Clinical Notes Section Notes 02/17/2025 Fungal infection of nail (ICD-10 - B35.1) 02/17/2025 Pain in right toe(s) (ICD-10 - M79.674) 02/17/2025 Pain in left toe(s) (ICD-10 - M79.675) 02/17/2025 Atherosclerosis of [place] arteries of extremities with intermittent claudication, bilateral legs (ICD-10 - I70.213) Plan Of Treatment Next Appt Details Provider Name:HERIBERTO WOODWARD, 04/28/2025 08:10:00 AM, [address] [place] [address], [id number], Progress Notes * MARIA T BUSTILLOSDOB: [birth year] (74 yo M)Acc No.[id number]:02/17/2025 Patient: MARIA T CRUZ Provider: Fredy DA SILVA :1950 A ge:74 Y S ex:Male Date:02/17/2025 Address:[address] [place] [address] Subjective: * Chief Complaints: * 1 . [...] was 02/16/25., Initials ab. * Medical History: M edical History Verified. * Surgical History: D enies Past Surgical History. * Hospitalization/Major Diagno stic Procedure: D enies Past Hospitalization. * Family History: N o Family History [...] * Allergies: N .K.D.A. Objective: * Vitals: W t:220lbs, Wt-k.79 kg, Ht: 71.00 in, Ht-cm: 180.34 cm, BMI:30.68Index, Body Surface Area: 2.23. Assessment: * Assessment: 1. F ungal infection of nail - B35.1 (Primary) 2 . P ain in right toe(s) - M79.674 3 . P ain in left toe(s) - M79.675 4 . A therosclerosis of [place] arteries of extremities with intermittent claudication, bilateral legs - I70.213 ? Plan: * Treatment: * Preventive Medicine: Screenings: F all risk screening F all Risk Assessment: N o falls in the past year. * Billing Information: * Visit Code: 12689 Office Visit, Est Pt., Level 3. * Procedure Codes: * Electronic signature of CELESTE DA SILVA DPM on 03/15/2025 at 08:27 AM CDT Sign off status: Pending * Provider: Fredy DA SILVA Date: 0 02/17/2025 Generated for Bhanu jj/Emilie/Latosha on: 1 08:27 AM CDT History and [...]
--- NOTE | 2025-03-14 | S_PTH ---
PATIENT: Kenji Newby LOC: [facility]#:[id number] AGE/SX: 74/M ROOM: RE03/14/[address]: Hailey Devine MD : 1950 BED: DIS: 03/14/2025 SPEC #: [id number] RECD: 03/15/25 08:51 STATUS: ADELE REQ #: [id number] VAMSI: 03/14/25 00:[address]: Hailey Devine DEPT: [facility] Surgical RECD BY: Concetta Steinberg ENTERED: 03/15/25 08:52 SP TYPE: Surgical OTHR DR: Marcus Marley MD Tissues: A - Soft Tissue Procedures: Hematoxylin and Eosin Stain Gross and Microscopic Level 3
--- OUTSIDE RECORDS SUMMARY | 2025-03-15 08:28 | XMS_ITS | Patient Health Record ---
Author Organization [facility] Address [address] [place], [place] [address] Care Team Providers Care Lean Sensei Name Role Phone HERIBERTO DA SILVA Unavailable [phone] DonellMarcus victor Unavailable Unavailable MATEUSJavier ZINA Unavailable [phone] CHASE WELLER Unavailable [phone] Allergies No Known Allergies Reason For Referral [...] 20 MG Oral; Duration: 90 Days Active Immunizations Vaccine Route Administration Date Status Comme nts Influenza, seasonal, injecta ble, preservative free, 3 yrs and above Unknown 02/26/2023 Administered Vital Signs Height-cm 180.34 cm 02/17/2025 Weight-kg 99.79 kg 02/17/2025 Height 71.00 in 02/17/2025 Weight 220 lbs 02/17/2025 BMI 30.68 kg/m2 02/17/2025 Encounters Encounter Location Date Provider Diagnosis [address] [id number] 05/06/2024 CHASE WELLER Unspecified atherosclerosis of [place] arteries of extremities, bilateral legs I70.203 ; [...] with diabetic peripheral angiopathy without gangrene E11.[address] [id number] 07/01/2024 ZINA SNOOK Tinea unguium B35.1 ; Acquired keratosis [keratoderma] palmaris et plantaris L85.1 ; Atherosclerosis of [place] arteries of extremities with intermittent claudication, bilateral legs I70.213 ; Pain in right foot M79.671 and Pain in left foot M79.[address] [id number] 11/25/2024 HERIBERTO DA SILVA Tinea unguium B35.1 ; Pain in right foot M79.671 ; Pain in left foot M79.672 ; Atherosclerosis of [place] arteries of extremities with intermittent claudication, bilateral legs I70.213 and Acquired keratosis [keratoderma] palmaris et plantaris L85.[address] [id number] 02/17/2025 HERIBERTO DA SILVA Fungal infection of nail B35.1 ; Pain in right toe(s) M79.674 ; Pain in left toe(s) M79.675 and Atherosclerosis of [place] arteries of extremities with intermittent claudication, bilateral legs I70.[address] [id number] 09/23/2024 ZINA SNOOK Tinea unguium B35.1 ; Acquired keratosis [keratoderma] palmaris et plantaris L85.1 ; Atherosclerosis of [place] arteries of extremities with intermittent claudication, bilateral legs I70.213 ; Pain in right foot M79.671 and Pain in left foot M79.672 Assessments Encounter Date Diagnosis (ICD Code) Assessment Notes Treatment Notes Treatment Clinical Notes Section Notes 05/06/2024 Unspecified atherosclerosis of [place] arteries of extremities, bilateral legs (ICD-10 - [...] Pain in right foot (ICD-10 - M79.671) 02/17/2025 Pain in right toe(s) (ICD-10 - M79.674) 02/17/2025 Fungal infection of nail (ICD-10 - B35.1) 02/17/2025 Pain in left toe(s) (ICD-10 - M79.675) 11/25/2024 Pain in left foot (ICD-10 - M79.672) 09/23/2024 Atherosclerosis of [place] arteries of extremities with intermittent claudication, bilateral legs (ICD-10 - I70.213) 07/01/2024 Atherosclerosis of [place] arteries of extremities with intermittent claudication, bilateral [...] foot (ICD-10 - M79.671) 11/25/2024 Atherosclerosis of [place] arteries of extremities with intermittent claudication, bilateral legs (ICD-10 - I70.213) 09/23/2024 Pain in right foot (ICD-10 - M79.671) 02/17/2025 Atherosclerosis of [place] arteries of extremities with intermittent claudication, bilateral legs (ICD-10 - I70.213) 09/23/2024 Pain in left foot (ICD-10 - [...] Provider Name:HERIBERTO WOODWARD, 04/28/2025 08:10:00 AM, [address] [place] [address], [id number], Insurance Providers Payer Name Payer Address Payer Phone Subscriber Number Group Number Insured Name Patient Relationship to Insured Coverage Start Date Coverage End Date AARP MedicareCom plete ([facility] [facility]) [address] [place], [place] [phone] [id number] MARIA T LAGUNA Self - patient is the insured
== END 2025-03-14 08:16 | disposition home or self-care (01) ==
LOC: ANHLAB 03-15 08:17
PROVIDERS: PCP Internal Medicine; Visit Provider Otolaryngology Otolaryngology/Facial Plastic Surgery
DX: D49.2 Neoplasm of unspecified behavior of bone, soft tissue, and skin (principal)
CPT/HCPCS: 88304

== ENCOUNTER 2025-04-02 06:50 | Outpatient (NON) | payer MEDICARE, SELFPAY ==
--- OUTSIDE RECORDS SUMMARY | 2023-12-04 02:10 | XMS_ITS ---
Author Organization [facility] Address [address] [place], [place] [id number] Care Team Providers Care Brickmason Supervisor Name Role Phone DA SILVAHERIBERTO MOSES Unavailable [phone] Marcus Marley Unavailable Unavailable CHASE WELLER Unavailable [phone] REASON FOR VISIT *General care Encounters Encounter Location Date Provider Diagnosis [address] [id number] 12/04/2023 CHASE WELLER Plan Of Treatment Next Appt Details Provider Name:HERIBERTO WOODWARD, 04/28/2025 08:10:00 AM, [address] [place] [address], [id number], Progress Notes * MARIA T BUSTILLOSDOB: [birth year] (74 yo M)Acc No.[id number]:12/04/2023 Patient: Javier DALLASMARIA T Provider: Zara WELLER :1950 A ge:73 Y S ex:Male Date:12/04/2023 Address:[address] [place], [place] [phone] Subjective: * Chief Complaints: * * General care Billing Information: * Procedure Codes: * Electronic signature of RAOUL WELLER DPM on 04/02/2025 at 06:54 AM DISH STACKER Sign off status: Pending * Provider: Zara WELLER Date: 0 12/04/2023 Generated for Bhanu jj/Emilie/eTransmitting on: 06/02/2024 06:54 AM DISH STACKER
--- OUTSIDE RECORDS SUMMARY | 2024-05-06 02:10 | XMS_ITS ---
Author Organization [facility] Address [address] [place], [place] [id number] Care Team Providers Care Hardening Machine Operator Helper Name Role Phone DA SILVAHERIBERTO MOSES Unavailable [phone] Marcus Marley Unavailable Unavailable CHASE WELLER Unavailable [phone] REASON FOR VISIT *General care Encounters Encounter Location Date Provider Diagnosis [address] [id number] 05/06/2024 CHASE WELLER Unspecified atherosclerosis of [place] arteries of extremities, bilateral legs I70.203 ; [...] Notes Section Notes 05/06/2024 Unspecified atherosclerosis of [place] arteries of extremities, bilateral legs (ICD-10 - [...] Treatment Notes Assessment Notes Unspecified atherosclerosis of [place] arteries of extremities, bilateral legs Patient educated [...] Provider Name:HERIBERTO Leatha WOODWARD, 04/28/2025 08:10:00 AM, [address] [place] [address], [id number], History and Physical Notes * HPI (History [...] MARIA T BUSTILLOSDOB: [birth year] (74 yo M)Acc No.[id number]:05/06/2024 Patient: MARIA T CRUZ Provider: Zara WELLER :1950 A ge:74 Y S ex:Male Date:05/06/2024 Address:[address] [place] [address] Subjective: * Chief Complaints: * * General [...] Patient denies c hest pain, history of [place], irregular heartbeat. M usculoskeletal: Patient complains of [...] (Primary) 2 . U nspecified atherosclerosis of apache arteries of extremities, bilateral legs - I70.203 [...] * Treatment: 2. U nspecified atherosclerosis of apache arteries of extremities, bilateral legs Notes: Patient [...] 3 Months Billing Information: * Visit Code: 80741 Office Visit, Est Pt., Level 3. * Procedure Codes: * Electronic signature of RAOUL WELLER DPM on 04/02/2025 at 06:54 AM SOUND EFFECTS SUPERVISOR Sign off status: Pending * Provider: Zara WELLER Date: 07/07/2023 Generated for Bhanu jj/Emilie/Latosha on: 06/02/2024 06:54 AM SOUND EFFECTS SUPERVISOR
--- OUTSIDE RECORDS SUMMARY | 2024-06-21 03:00 | XMS_ITS ---
Author Organization [facility] Address [address] [facility] [address] [place], [place] [phone] Care Team Providers Care Aws Architect Name Role Phone HERIBERTO DA SILVA Unavailable [phone] Marcus Marley Unavailable Unavailable ZINA STORY Unavailable [phone] REASON FOR VISIT left toe infected D+ Encounters Encounter Location Date Provider Diagnosis [facility] [place] [address] [facility] [address] [place], [place] [phone] 06/21/2024 ZINA STORY Plan Of Treatment Next Appt Details Provider Name:HERIBERTO WOODWARD, 04/28/2025 08:10:00 AM, [address] [place] [address], [id number], Progress Notes * MARIA T BUSTILLOSDOB: [birth year] (74 yo M)Acc No.[id number]:06/21/2024 Patient: Javier MARIA T DALLAS Provider: Bailey Story DPM :1950 A ge:74 Y S ex:Male Date:06/21/2024 Address:[address] [place], [place] [phone] Subjective: * Chief Complaints: * l eft toe infected D+ Billing Information: * Procedure Codes: * Electronic signature of ZINA STORY DPM on 04/02/2025 at 06:54 AM LINING MECHANIC Sign off status: Pending * Provider: Bailey Story DPM Date: 0 06/21/2024 Generated for Bhanu jj/Emilie/Latosha on: 06/02/2024 06:54 AM LINING MECHANIC
--- OUTSIDE RECORDS SUMMARY | 2024-07-01 08:40 | XMS_ITS ---
Author Organization [facility] Address [address] [place], [place] [phone] Care Team Providers Care [place] Tribunal Member Name Role Phone HERIBERTO DA SILVA Unavailable [phone] DonellMarcus victor Unavailable Unavailable ZINA STORY Unavailable [phone] REASON FOR VISIT The patient is concerned that the left great toe has a black spot underneath it. He is wondering ifit is infected., Patient presents for at-risk foot care . The patient has painful toenails and calluses that are causing difficulty with ambulation and shoegear. The onset is gradual Encounters Encounter Location Date Provider Diagnosis [address] [id number] 07/01/2024 ZINA STORY Tinea unguium B35.1 ; Acquired keratosis [keratoderma] palmaris et plantaris L85.1 ; Atherosclerosis of [place] arteries of extremities with intermittent claudication, bilateral [...] utilizing a #15 blade 07/01/2024 Atherosclerosis of [place] arteries of extremities with intermittent claudication, bilateral [...] develop. Provider Name:HERIBERTO WOODWARD, 04/28/2025 08:10:00 AM, [address] [place] [address], [id number], History and Physical Notes * HPI (History [...] MARIA T BUSTILLOSDOB: [birth year] (74 yo M)Acc No.[id number]:07/01/2024 Patient: MARIA T CRUZ Provider: Bailey Story DPM :1950 A ge:74 Y S ex:Male Date:07/01/2024 Address:[address] [place], [place] [address] Subjective: * Chief Complaints: * T he [...] - L85.1 3 . A therosclerosis of lime arteries of extremities with intermittent claudication, bilateral [...] problems develop.) Billing Information: * Visit Code: 61961 Office Visit, Est Pt., Level 3. * Procedure Codes: * Electronic signature of ZINA STORY DPM on 04/02/2025 at 06:54 AM HVAC MANAGER Sign off status: Pending * Provider: Bailey Story DPM Date: 0 07/01/2024 Generated for Bhanu jj/Faxing/eTransmitting on: 06/02/2024 06:54 AM HVAC MANAGER
--- OUTSIDE RECORDS SUMMARY | 2024-11-25 03:10 | XMS_ITS ---
Author Organization [facility] Address [address] [place], [place] [address] Care Team Providers Care Blasting Helper Name Role Phone DA SILVAHERIBERTO MOSES Unavailable [phone] Donell Marcus Unavailable Unavailable Allergies No Known Allergies REASON FOR VISIT *General care Medications Medication SIG (Take, Route, Frequency, Duration) Notes Start Date End Date Status Tamsulosin HCl 0.4 MG Capsule TAKE 1 CAPSULE BY MOUTH TWICE DAILY 1/2 HOUR FOLLOWING THE SAME MEAL EACH DAY Oral; Duration: 90 Days Active Ciprofloxacin HCl 500 MG Tablet TAKE 1 TABLET BY MOUTH EVERY 12 HOURS Oral; Duration: 10 Days Active Xarelto 20 MG Tablet Oral; Duration: 90 Days Active Glimepiride 2 MG Tablet TAKE 1 TABLET BY MOUTH TWICE DAILY Oral; Duration: 30 Days Active Social History Social History Additional Details Category Social Info Options Details Migrated Social History Migrated Social History Smoking Status : Never used tobacco , Alcohol intake : , History of tobacco use : Encounters Encounter Location Date Provider Diagnosis [address] [id number] 11/25/2024 HERIBERTO DA SILVA Tinea unguium B35.1 ; Pain in right foot M79.671 ; Pain in left foot M79.672 ; Atherosclerosis of [place] arteries of extremities with intermittent claudication, bilateral legs I70.213 and Acquired keratosis [keratoderma] palmaris et plantaris L85.1 Assessments Encounter Date Diagnosis (ICD Code) Assessment Notes Treatment Notes Treatment Clinical Notes Section Notes 11/25/2024 Tinea unguium (ICD-10 - B35.1) Nails 1-5 Bilateral were debrided extensively with nail nippers and emery board, reducing length and girth to pink healthy tissue with any subungual debris and necrotic tissue removed 11/25/2024 Pain in right foot (ICD-10 - M79.671) 11/25/2024 Pain in left foot (ICD-10 - M79.672) 11/25/2024 Atherosclerosis of [place] arteries of extremities with intermittent claudication, bilateral legs (ICD-10 - I70.213) 11/25/2024 Acquired keratosis [keratoderma] palmaris et plantaris (ICD-10 - L85.1) A total of 2 corns or calluses, as described in the note above, were cut and pared utilizing a #15 blade Plan Of Treatment Treatment Notes Assessment Notes Tinea unguium Nails 1-5 Bilateral were debrided extensively with nail nippers and emery board, reducing length and girth to pink healthy tissue with any subungual debris and necrotic tissue removed Acquired keratosis [keratode rma] palmaris et plantaris A total of 2 corns or calluses, as described in the note above, were cut and pared utilizing a #15 blade Next Appt Details Follow Up: 10 - 12 weeks, Re ason: At-Risk Foot care, sooner if problems develop. Provider Name:HERIBERTO WOODWARD, 04/28/2025 08:10:00 AM, [address] [place] [address], [id number], History and Physical Notes * HPI (History of Present Illness) Category Sub-Category Detail Notes Category Not es HPI General care Patient presents to the office for diabetic foot care. Patient states that their nails are thickened, elongated and painful. Patient states that it is aggravated by shoe gear. Onset is gradual. Patient is taking prescription blood thinners. Date last seen by Dr. Marley was 10/2024. Initials sea Examination Category Sub-Category Detail Notes Category Not es Dermatologic Skin findings: Skin is thin, at rophic and lacking pedal hair Nail pathology: Nails 1, 2, 3, 4, an d 5 bilateral are elongated, thick, discolored, and dystrophic with subungual debris. They are painful to palpation Hypertrophic / hyperkeratotic lesion: pl ida aspect of the left and right hallux, plantar aspect of the left and right 5th metatarsal head Neurologic Gross sensation Grossly intact t o [...] MARIA T BUSTILLOSDOB: [birth year] (74 yo M)Acc No.[id number]:11/25/2024 Patient: MARIA T CRUZ Provider: Fredy DA SILVA :1950 A ge:74 Y S ex:Male Date:11/25/2024 Address:[address] [place] [address] Subjective: * Chief Complaints: * * General care * HPI: H PI: General care P atient presents to the office for diabetic foot care. Patient states that their nails are thickened, elongated and painful. Patient states that it is aggravated by shoe gear. Onset is gradual. Patient is taking prescription blood thinners. Date last seen by Dr. Marley was 10/2024. Initials sea. * ROS: G eneral / Constitutional: Patient [...] confusion, difficulty speaking, dizziness. * Medical History: No Medical History Documented Medical History Verified * Surgical History: No Surgical History documented. Surgical History verified. * Family History: N o Family History documented.. F amily History Verified.. * Social History: M igrated Social History: M igrated Social History: Smoking Status : Never used tobacco , Alcohol intake : , History of tobacco use :. Social History Verified. * Medications: T akingXarelto 20 MG Tablet Oral Glimepiride 2 MG Tablet TAKE 1 TABLET BY MOUTH TWICE DAILY Oral Tamsulosin HCl 0.4 MG Capsule TAKE 1 CAPSULE BY MOUTH TWICE DAILY 1/2 HOUR FOLLOWING THE SAME MEAL EACH DAY Oral Ciprofloxacin HCl 500 MG Tablet TAKE 1 TABLET BY MOUTH EVERY 12 HOURS Oral Medication List reviewed and reconciled with the patientTaking Xarelto 20 MG Tablet Oral Taking Glimepiride 2 MG Tablet TAKE 1 TABLET BY MOUTH TWICE DAILY Oral Taking Tamsulosin HCl 0.4 MG Capsule TAKE 1 CAPSULE BY MOUTH TWICE DAILY 1/2 HOUR FOLLOWING THE SAME MEAL EACH DAY Oral Taking Ciprofloxacin HCl 500 MG Tablet TAKE 1 TABLET BY MOUTH EVERY 12 HOURS Oral Medication List reviewed and reconciled with the patient * Allergies: N .K.D.A.yesAllergies Verified. Objective: * Examination: P hysical Examination: General appearance: A lert, pleasant, well-nourished and in no acute distress. D ermatologic: Skin findings: S kin is thin, atrophic and lacking pedal hair. Hypertrophic / hyperkeratotic lesion: p lantar aspect of the left and right hallux, plantar aspect of the left and right 5th metatarsal head. Nail pathology: N ails 1, 2, 3, [...] inea unguium - B35.1 (Primary) 2 . P ain in right foot - M79.671 ? 3 . P ain in left foot - M79.672 4 . A therosclerosis of [place] arteries of extremities with intermittent claudication, bilateral legs - I70.213 5 . Acquired keratosis [keratoderma] palmaris et plantaris - L85.1 Plan: * Treatment: 2. A cquired keratosis [keratoderma] palmaris et plantaris Notes: A total of 2 corns or calluses, as described in the note above, were cut and pared utilizing a #15 blade * Procedure Codes: 1 1056 TRIM SKIN LESIONS, 2 TO 4, Modifiers: Q8 63056 DEBRIDE NAIL, 6 OR MORE, Modifiers: 59 , Q8 * Follow Up: 1 0 - 12 weeks (Reason: At-Risk Foot care, sooner if problems develop.) Billing Information: * Procedure Codes: 06398 TRIM SKIN LESIONS, 2 TO 4. Modifiers: Q8 09205 DEBRIDE NAIL, 6 OR MORE. Modifiers: 59, Q8 * Electronic signature of CELESTE DA SILVA DPM on 04/02/2025 at 06:54 AM VICE PRESIDENT QUALITY ASSURANCE Sign off status: Pending * Provider: Fredy DA SILVA Date: 0 11/25/2024 Generated for Bhanu Del Rosario/Latosha on: 1 06/02/2024 06:54 AM VICE PRESIDENT QUALITY ASSURANCE
--- OUTSIDE RECORDS SUMMARY | 2025-02-17 05:40 | XMS_ITS ---
Author Organization [facility] Address [address] [place], [place] [address] Care Team Providers Care Institution Librarian Name Role Phone AVINASH HERIBERTO Unavailable [phone] DonellJamalMarcus Unavailable Unavailable Allergies No Known Allergies [...] 02/17/2025 Encounters Encounter Location Date Provider Diagnosis [address] [id number] 02/17/2025 HERIBERTO DA SILVA Fungal infection of nail B35.1 ; Pain in right toe(s) M79.674 ; Pain in left toe(s) M79.675 and Atherosclerosis of [place] arteries of extremities with intermittent claudication, bilateral legs I70.213 Assessments Encounter Date Diagnosis (ICD Code) Assessment Notes Treatment Notes Treatment Clinical Notes Section Notes 02/17/2025 Fungal infection of nail (ICD-10 - B35.1) 02/17/2025 Pain in right toe(s) (ICD-10 - M79.674) 02/17/2025 Pain in left toe(s) (ICD-10 - M79.675) 02/17/2025 Atherosclerosis of [place] arteries of extremities with intermittent claudication, bilateral legs (ICD-10 - I70.213) Plan Of Treatment Next Appt Details Provider Name:HERIBERTO LARA NOHELIACURTIS, 04/28/2025 08:10:00 AM, [address] [place] [address], [id number], History and Physical Notes * HPI (History [...] ab Progress Notes * AKHILHERIBERTOMARIA TDOB: [birth year] (74 yo M)Acc No.[id number]:02/17/2025 Patient: MARIA T CRUZ Provider: Fredy DA SILVA :1950 A ge:74 Y S ex:Male Date:02/17/2025 Address:[address] [place] [address] Subjective: * Chief Complaints: * * General [...] - M79.675 4 . A therosclerosis of [place] arteries of extremities with intermittent claudication, bilateral legs - I70.213 ? Plan: * Preventive Medicine: Screenings: F all risk screening F all Risk Assessment: N o falls in the past year. Billing Information: * Visit Code: 94206 Office Visit, Est Pt., Level 3. * Electronic signature of CELESTE DA SILVA DPM on 04/02/2025 at 06:54 AM JUKEBOX OPERATOR Sign off status: Pending * Provider: Fredy DA SILVA Date: 0 02/17/2025 Generated for Bhanu jj/Emilie/Rubenitting on: 1 06/02/2024 06:54 AM JUKEBOX OPERATOR
--- NOTE | 2025-04-01 | S_PTH ---
PATIENT: Kenji Newby LOC: [facility]#:[id number] AGE/SX: 74/M ROOM: RE04/02/[address]: Hailey Devine MD : 1950 BED: DIS: 04/02/2025 SPEC #: [id number] RECD: 04/02/25 07:32 STATUS: ADELE RELaurie #: [id number] VAMSI: 04/01/25 00:[address]: Hailey Devine DEPT: [facility] Surgical RECD BY: Sherlyn Solomon MLT, ([facility]) Tissues: A - Skin Bx Procedures: Hematoxylin and Eosin Stain Gross and Microscopic Level 4
--- OUTSIDE RECORDS SUMMARY | 2025-04-02 06:54 | XMS_ITS | Clinical Summary ---
Author Organization [facility] Address [address] [place] [address] Care Team Providers Care Repair Supervisor Name Role Phone Marcus Marley MD Primary Care Provider [phone] Bertin Mustafa MD Unavailable [phone] Allergies No known active allergies Medications [...] Diagnosed Date Coronary artery disease invo lving [place] coronary artery of [place] heart without angina pectoris 08/13/2023 Abnormal stress test 06/14/2023 Longstanding persistent atrial fibrillation 03/26 Anticoagulation adequate 04/05/2023 HTN (hypertension), benign 04/05/2023 Renal insufficiency 04/05/2023 Overview (04/05/2023): Creat 2.2 --- 02/01/2023 Resolved Problems Problem Noted Date Diagnosed Date Resolved Date Preop cardiovascular exam 08/13/2023 Social History Tobacco Use Types Packs/Day Years [...] 36.1 C (97 F) 07/03/2023 10:59 AM KINDERGARTEN TEACHER Respiratory Rate 18 12/16/2024 2:02 PM CDT Oxygen Saturation 95% 07/03/2023 10:59 AM KINDERGARTEN TEACHER Inhaled Oxygen Concentration - - Weight 104.3 kg (230 lb) 12/16/2024 2:02 PM CDT Height 177.8 cm (5' 10) 12/16/2024 2:02 PM CDT Body Mass Index 33 12/16/2024 2:02 PM CDT Plan of Treatment Upcoming Encounters Date Type Department Care Team (Late st Contact Info) Description 12/22/2025 12:45 PM CDT Office Visit [facility] [address] [place] [address] Bertin Mustafa MD [address] [place] [address] Health Maintenance Due Date Last [...] - 2024-2 6 season) 2025 01/15/2021, 12/25/2020 Influenza Adult (#1) 2025 03/16/2014, 02/01/2013 DTaP, Tdap and Td Vaccines ( 2 - Td or Tdap) 03/07/2030 03/07/2020 Hepatitis A Vaccines Aged Out No long er eligible based on patient's age to complete this topic Meningococcal B Vaccine Aged Out No l [...] CDT) CHOLESTEROL 132 MG/DL 06/04/2023 10:05 AM [facility] Comment:DESIRABLE: <200 TRIGLYCERIDES 264 MG/DL 06/04/2023 10:05 AM [facility] Comment:200-499 HIGH HDL 14(L) >39 MG/DL 06/04/2023 10:05 AM [facility] LDL (CALCULATED) 65 MG/DL 06/04/19 10:05 AM [facility] Comment:<100 OPTIMAL VLDL CALCULATION 53 MG/DL 06/04/19 10:05 AM [facility] Comment:REFERENCE RANGE NOT ESTABLISHED CHOL/HDL RATIO 9.4 06/04/2023 10:05 AM KINDERGARTEN TEACHER [facility] Comment:REFERENCE RANGE NOT ESTABLISHED LDL/HDL 4.6 06/04/2023 10:05 AM [facility] Comment:REFERENCE RANGE NOT ESTABLISHED NON HDL CHOLESTEROL 118 MG/DL 06/04/2023 10:05 AM [facility] Comment:REFERENCE RANGE NOT ESTABLISHED 01/31/2023 4:04 AM CDT Karishma Garcia MD LABORATORY Final Result [facility] [address] [place] [address], [id number] from Last 3 Months or Most Recently Relevant to Health Maintenance Insurance [facility] MEDICARE Advance Directives * Full Code (Latest Code Status on File) Date Activated Date Inactivated Comments 07/03/2023 2:27 PM 07/03/2023 6:01 PM Care Teams Repair Supervisor Relationship Specialty Start Date End Date Marcus Marley MD [address] [place] [phone] PCP - General INTERNAL MEDICINE 03/31/23 Bertin Mustafa MD [address] [place] [address] EP Client Portfolio Manager CLINICAL CARDIAC ELECTROPHYSIOLOGY 12/16/24
--- OUTSIDE RECORDS SUMMARY | 2025-04-02 06:55 | XMS_ITS | Patient Health Record ---
Author Organization [facility] Address [address] [place], [place] [id number] Care Team Providers Care Exchange Teller Name Role Phone HERIBERTO DA SILVA Unavailable [phone] DonellJamalMarcus Unavailable Unavailable JEZ ZINA Unavailable [phone] CHASE WELLER Unavailable [phone] Allergies No Known Allergies Reason For Referral [...] MG Tablet Oral; Duration: 90 Days Active Immunizations Vaccine Route Administration Date Status Comme nts Influenza, seasonal, injecta ble, preservative free, 3 yrs and above Unknown 02/26/2023 Administered Social History Social History Additional Details Category Social Info Options Details Migrated Social History Migrated Social History Smoking Status : Never used tobacco , Alcohol intake : , History of tobacco use : Vital Signs Height-cm 180.34 cm 02/17/2025 Weight-kg 99.79 kg 02/17/2025 Height 71.00 in 02/17/2025 Weight 220 lbs 02/17/2025 BMI 30.68 kg/m2 02/17/2025 Encounters Encounter Location Date Provider Diagnosis [address] [id number] 05/06/2024 CHASE DAVYDOV Unspecified atherosclerosis of ramona arteries of extremities, bilateral legs I70.203 ; [...] with diabetic peripheral angiopathy without gangrene E11.[address] [id number] 07/01/2024 ZINA SNOOK Tinea unguium B35.1 ; Acquired keratosis [keratoderma] palmaris et plantaris L85.1 ; Atherosclerosis of ramona arteries of extremities with intermittent claudication, bilateral legs I70.213 ; Pain in right foot M79.671 and Pain in left foot M79.[address] [id number] 11/25/2024 HERIBERTO DA SILVA Tinea unguium B35.1 ; Pain in right foot M79.671 ; Pain in left foot M79.672 ; Atherosclerosis of ramona arteries of extremities with intermittent claudication, bilateral legs I70.213 and Acquired keratosis [keratoderma] palmaris et plantaris L85.[address] [id number] 02/17/2025 HERIBERTO DA SILVA Fungal infection of nail B35.1 ; Pain in right toe(s) M79.674 ; Pain in left toe(s) M79.675 and Atherosclerosis of ramona arteries of extremities with intermittent claudication, bilateral legs I70.[address] [id number] 09/23/2024 ZINA SNOOK Tinea unguium B35.1 ; Acquired keratosis [keratoderma] palmaris et plantaris L85.1 ; Atherosclerosis of ramona arteries of extremities with intermittent claudication, bilateral legs I70.213 ; Pain in right foot M79.671 and Pain in left foot M79.672 Assessments Encounter Date Diagnosis (ICD Code) Assessment Notes Treatment Notes Treatment Clinical Notes Section Notes 05/06/2024 Unspecified atherosclerosis of ramona arteries of extremities, bilateral legs (ICD-10 - [...] foot (ICD-10 - M79.672) 09/23/2024 Atherosclerosis of ramona arteries of extremities with intermittent claudication, bilateral legs (ICD-10 - I70.213) 07/01/2024 Atherosclerosis of ramona arteries of extremities with intermittent claudication, bilateral [...] foot (ICD-10 - M79.671) 11/25/2024 Atherosclerosis of ramona arteries of extremities with intermittent claudication, bilateral legs (ICD-10 - I70.213) 09/23/2024 Pain in right foot (ICD-10 - M79.671) 02/17/2025 Atherosclerosis of ramona arteries of extremities with intermittent claudication, bilateral [...] Details Provider Name:HERIBERTO WOODWARD, 04/28/2025 08:10:00 AM, [address] [place] [address], [phone], Insurance Providers Payer Name Payer Address Payer Phone Subscriber Number Group Number Insured Name Patient Relationship to Insured Coverage Start Date Coverage End Date AARP MedicareCom plete ([facility]) [address] [place], [place] [id number] MARIA T LAGUNA Self - patient is the insured
--- OUTSIDE RECORDS SUMMARY | 2025-04-02 06:55 | XMS_ITS | Encounter Summary ---
Author Organization [facility] Address [address] [place] [address] Care Team Providers Care Blast Furnace Operator Name Role Phone Marcus Marley MD Primary Care Provider [phone] Bertin Mustafa MD Unavailable [phone] Encounter Details Date Type Department Care Team (Late Contact Info) Description 06/18/2023 Prep for Procedure [facility] [address] [place] [address] [phone] Bertin Mustafa MD [address] [place] [address] Social History Tobacco Use Types Packs/Day Years [...] Description 12/22/2025 12:45 PM CDT Office Visit [facility] [address] [place] [address] [phone] Bertin Mustafa MD [address] [place] [address] documented as of this encounter Visit Diagnoses Not on filedocumented in this encounter Care Teams Blast Furnace Operator Relationship Specialty Start Date End Date Marcus Marley MD [address] [place] [phone] PCP - General INTERNAL MEDICINE 03/31/23 Bertin Mustafa MD [address] [place] [address] EP Cluster Bore Operator CLINICAL CARDIAC ELECTROPHYSIOLOGY 12/16/24 documented as of this encounter
[2025-04-03 06:52] LABS: Reference Lab Test Name PATHOLOGY REPORT; Reference Lab Test Result SS25-90
== END 2025-04-02 06:51 | disposition home or self-care (01) ==
LOC: CHSLAB 06:51
PROVIDERS: Visit Provider Otolaryngology Otolaryngology/Facial Plastic Surgery
DX: D49.2 Neoplasm of unspecified behavior of bone, soft tissue, and skin (principal)
CPT/HCPCS: 36415; 88305

== ENCOUNTER 2025-04-15 16:20 | Outpatient (CLI) | payer MEDICARE, SELFPAY ==
--- NOTE | ~2025-04-15 | CT_ITS ---
EXAMINATION: CT soft tissue neck w con DATE: 04/15/2025 17:04 INDICATION: History malignant neoplasm. Details of diagnosis and any prior treatment are not available. TECHNIQUE: Computed tomography (CT) of the neck was performed with 75 mL Omnipaque-350 intravenous contrast. Automated exposure control and iterative reconstruction technique were employed. The dose-length product was 652.91 mGy-cm. COMPARISON: Sinus series dated 07/17/2023. FINDINGS: No evidence of supraclavicular mass. No focal lesions of the thyroid gland. No significant lymphadenopathy along the jugular chain on both sides. Dominant lymph node at level 4 of the left jugular chain measuring 10 mm in short axis with prominent fatty hilum. Mild atherosclerotic disease of carotid bulb on both sides. No focal lesions of the airway and pharyngeal region are seen. Carotid, submandibular salivary glands are normal. No focal bone changes of cervical spine. Mild degenerative changes in the lower C-spine. IMPRESSION: 1. Limited evaluation due to lack of the details about diagnosis of head and neck malignancy and any prior comparison studies. 2. No significant lymphadenopathy in the neck. No focal lesions of the pharynx larynx and the trachea. 3. No focal abnormalities of the thyroid and salivary glands. Reviewed, dictated and finalized at location T. T PACKER IMPRESSION: 1. Limited evaluation due to lack of the details about diagnosis of head and ne ck malignancy and any prior comparison studies. 2. No significant lymphadenopathy in the neck. No focal lesions of the pharynx larynx and the trachea. 3. No focal abnormalities of the thyroid and salivary glands.
[2025-04-15 16:45] LABS: Estimated Glomerular Filt Rate > 60
== END 2025-04-15 16:21 | disposition home or self-care (01) ==
LOC: CHSIMG 16:22
PROVIDERS: PCP Otolaryngology; Visit Provider Otolaryngology
DX: C44.201 Unspecified malignant neoplasm of skin of unspecified ear and external auricular canal (principal)
CPT/HCPCS: 70491; Q9967

== ENCOUNTER 2025-04-20 01:36 | Day surgery (SDC) | payer MEDICARE, SELFPAY ==
--- OUTSIDE RECORDS SUMMARY | 2023-12-04 02:10 | XMS_ITS ---
Author Organization [facility] Address [address] [place], [place] [id number] Care Team Providers Care Buffing Wheel Inspector Name Role Phone DA SILVAHERIBERTO MOSES Unavailable [phone] Marcus Marley Unavailable Unavailable CHASE WELLER Unavailable [phone] REASON FOR VISIT *General care Encounters Encounter Location Date Provider Diagnosis [address] [id number] 12/04/2023 CHASE WELLER Plan Of Treatment Next Appt Details Provider Name:HERIBERTO WOODWARD, 04/28/2025 08:10:00 AM, [address] [place] [address], [id number], Progress Notes * MARIA T BUSTILLOSDOB: [birth year] (75 yo M)Acc No.[id number]:12/04/2023 Patient: Javier DALLASMARIA T Provider: Zara WELLER :1950 A ge:73 Y S ex:Male Date:12/04/2023 Address:[address] [place], [place] [id number] Subjective: * Chief Complaints: * * General care Billing Information: * Procedure Codes: * Electronic signature of RAOUL WELLER DPM on 04/20/2025 at 01:39 AM UNIVERSITY DEMONSTRATOR Sign off status: Pending * Provider: Zara WELLER Date: 0 12/04/2023 Generated for Bhanu jj/Emilie/eTransmitting on: 06/20/2024 01:39 AM UNIVERSITY DEMONSTRATOR
--- OUTSIDE RECORDS SUMMARY | 2024-05-06 02:10 | XMS_ITS ---
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, bilateral legs I70.203 ; Onychomycosis B35.1 ; Other hammer toe(s) (acquired), right foot M20.41 ; Other hammer toe(s) (acquired), left foot M20.42 ; Pain in right toe(s) M79.674 ; Pain in left toe(s) M79.675 ; Acquired keratosis [keratoderma] palmaris et plantaris L85.1 ; Pain in right foot M79.671 ; Pain in left foot M79.672 and Type 2 diabetes mellitus with diabetic peripheral angiopathy without gangrene E11.51 Assessments Encounter Date Diagnosis (ICD Code) Assessment Notes Treatment Notes Treatment Clinical Notes Section Notes 05/06/2024 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 The patient was educated regarding all treatment options that include topical and oral antifungal treatments. I discussed the options of taking a sample of the nail to confirm diagnosis. Nail clippings were not sent for pathology analysis. The patient was educated why and how the fungal infection evolved in their feet and the patient was given information regarding how to prevent further infection. The patient was told to keep feet dry and change socks. The patient was told to be careful with old shoes and excessive sweating. The patient was educated regarding both OTC and prescription treatments. 05/06/2024 Other hammer toe(s) (acquired), right foot (ICD-10 - M20.41) The patient was educated regarding how to mechanically stabilize their deformity. The patient was given education about shoe recommendations specific for the condition. The patient was educated about custom orthotics and how appropriate shoes and orthotics can prevent further worsening of the deformity. The patient was educated about how bad shoe habits can worsen the condition. NSAIDS, P.T., injections and other conservative treatments were discussed. Both surgical and non surgical treatments were discussed, but conservative options were emphasized. 05/06/2024 Other hammer toe(s) (acquired), left foot (ICD-10 - M20.42) 05/06/2024 Pain in right toe(s) (ICD-10 - M79.674) 05/06/2024 Pain in left toe(s) (ICD-10 - M79.675) 05/06/2024 Acquired keratosis [keratoderma] palmaris et plantaris (ICD-10 - L85.1) Pre-ulcerative keratoderma debrided sharply down to the level of healthy tissue using a 15 blade. After removal of overlying extensive hyperkeratosis, healthy tissue was noted and care was taken to assure that no undermining or probing was present. It should be noted that no probing was noted and no infection or drainage was noted. 05/06/2024 Pain in right foot (ICD-10 - M79.671) 05/06/2024 Pain in left foot (ICD-10 - M79.672) 05/06/2024 Type 2 diabetes mellitus with diabetic peripheral angiopathy without gangrene (ICD-10 - E11.51) Patient educated on proper diabetic foot care and the importance of tight glycemic control in regards to the prevention of diabetic manifestations and symptomatology in lower extremity. Explained to patient the importance of keeping interdigital spaces dry, not walking bare foot, having supportive shoe gear, using moisturizer to skin on feet daily especially in winter months, and checking feet daily for any new lesions or areas suspicious of trauma infection or ulceration. Explained to patient to return to ED if any change in foot health associated with signs of systemic infection including but not limited to nausea, vomiting, fever. 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 The patient was educated regarding all treatment options that include topical and oral antifungal treatments. I discussed the options of taking a sample of the nail to confirm diagnosis. Nail clippings were not sent for pathology analysis. The patient was educated why and how the fungal infection evolved in their feet and the patient was given information regarding how to prevent further infection. The patient was told to keep feet dry and change socks. The patient was told to be careful with old shoes and excessive sweating. The patient was educated regarding both OTC and prescription treatments. Other hammer toe(s) (acquired), right fo ot The patient was educated regarding how to mechanically stabilize their deformity. The patient was given education about shoe recommendations specific for the condition. The patient was educated about custom orthotics and how appropriate shoes and orthotics can prevent further worsening of the deformity. The patient was educated about how bad shoe habits can worsen the condition. NSAIDS, P.T., injections and other conservative treatments were discussed. Both surgical and non surgical treatments were discussed, but conservative options were emphasized. Acquired keratosis [keratode rma] palmaris et plantaris Pre-ulcerative keratoderma debrided sharply down to the level of healthy tissue using a 15 blade. After removal of overlying extensive hyperkeratosis, healthy tissue was noted and care was taken to assure that no undermining or probing was present. It should be noted that no probing was noted and no infection or drainage was noted. Type 2 diabetes mellitus wit h diabetic peripheral angiopathy without gangrene Patient educated on proper diabetic foot care and the importance of tight glycemic control in regards to the prevention of diabetic manifestations and symptomatology in lower extremity. Explained to patient the importance of keeping interdigital spaces dry, not walking bare foot, having supportive shoe gear, using moisturizer to skin on feet daily especially in winter months, and checking feet daily for any new lesions or areas suspicious of trauma infection or ulceration. Explained to patient to return to ED if any change in foot health associated with signs of systemic infection including but not limited to nausea, vomiting, fever. a Next Appt Details Follow Up: 3 Months, Reason: Provider Name:HERIBERTO Leatha WOODWARD, 04/28/2025 08:10:00 AM, [address] [place] [address], [phone], History and Physical Notes * HPI (History of Present Illness) Category Sub-Category Detail Notes Category Not es HPI General care Patient presents to the office for diabetic foot care. Patient states that their nails are thickened, elongated and painful. Patient states that it is aggravated by shoe gear. Onset is gradual., Patient is taking prescription blood thinners., Date last seen by Dr. Marley was 01/2024., Initials mca Examination Category Sub-Category Detail Notes Category Not es Physical Examination Vascular: Dorsalis Pedis pulse noted at 1/4 right foot and 1/4 left foot and Posterior Tibial pulse noted at 1/4 right foot and 1/4 left foot, Capillary refill times noted to be less than three seconds x ten, Temperature gradient noted to be warm to cool to bilateral foot, pedal hair present to bilateral foot and no varicosities are noted Dermatologic: hyperkeratotic tissue noted to plantar medial hallux bilateral foot, interdigital spaces are noted to be clean dry and intact at this time, nails elongated thickened dystrophic with sunungual debris x ten Musculoskeletal: there is pain to palpation onto nail plate x ten, no calf pain noted bilaterally, arch height noted at 2/5 non-weight bearing bilaterally, first metatarsophalangeal joint range of motion 30 deg non-weight bearing bilaterally, pain to palpation bilateral foot hyperkeratotic tissue plantar medial hallux Neurology: protective sensation diminished to light touch bilateral digits one through five, vibratory sensation intact to first metatarsophalangeal joint bilaterally Progress Notes * MARIA T BUSTILLOSDOB: [birth year] (75 yo M)Acc No.[id number]:05/06/2024 Patient: MARIA T CRUZ Provider: Zara WELLER :1950 A ge:74 Y S ex:Male Date:05/06/2024 Address:[address] [place] [address] Subjective: * Chief Complaints: * * General care * HPI: H PI: General care P atient presents to the office for diabetic foot care. Patient states that their nails are thickened, elongated and painful. Patient states that it is aggravated by shoe gear. Onset is gradual., Patient is taking prescription blood thinners., Date last seen by Dr. Marley was 01/2024., Initials mca. * ROS: G eneral / Constitutional: Patient denies w eakness. R espiratory: Patient denies c hronic cough, shortness of breath, sputum production. C ardiovascular: Patient denies c hest pain, history of NE, irregular heartbeat. M usculoskeletal: Patient complains of h ammertoes, muscle stiffness, bunions. P eripheral Vascular: Patient denies b lanching of skin, cold extremities, decreased sensation in extremities. S kin: Patient complains of u lcerations. ? N eurologic: Patient denies d izziness, gait abnormality, headache. Objective: * Examination: P hysical Examination: V ascular: Dorsalis Pedis pulse noted at 1/4 right foot and 1/4 left foot and Posterior Tibial pulse noted at 1/4 right foot and 1/4 left foot, Capillary refill times noted to be less than three seconds x ten, Temperature gradient noted to be warm to cool to bilateral foot, pedal hair present to bilateral foot and no varicosities are noted Dermatologic: hyperkeratotic tissue noted to plantar medial hallux bilateral foot, interdigital spaces are noted to be clean dry and intact at this time, nails elongated thickened dystrophic with sunungual debris x ten Musculoskeletal: there is pain to palpation onto nail plate x ten, no calf pain noted bilaterally, arch height noted at 2/5 non-weight bearing bilaterally, first metatarsophalangeal joint range of motion 30 deg non-weight bearing bilaterally, pain to palpation bilateral foot hyperkeratotic tissue plantar medial hallux Neurology: protective sensation diminished to light touch bilateral digits one through five, vibratory sensation intact to first metatarsophalangeal joint bilaterally. Assessment: * Assessment: 1. O nychomycosis - B35.1 (Primary) 2 . U nspecified atherosclerosis of hoopa arteries of extremities, bilateral legs - I70.203 3 . O ther hammer toe(s) (acquired), right foot - M20.41 4 . O ther hammer toe(s) (acquired), left foot - M20.42 5 . P ain in right toe(s) - M79.674 6 . P ain in left toe(s) - M79.675 7 . A cquired keratosis [keratoderma] palmaris et plantaris - L85.1 8 . P ain in right foot - M79.671 9 . P ain in left foot - M79.672 1 0. T ype 2 diabetes mellitus with diabetic peripheral angiopathy without gangrene - E11.51 Plan: * Treatment: 2. U nspecified atherosclerosis of hoopa arteries of extremities, bilateral legs Notes: Patient educated on risks and aggravating factors of PVD, including conservative treatment options such as a diet and exercise regimen to aid in slowing progression of vascular disease ? 3. O ther hammer toe(s) (acquired), right foot Notes: The patient was educated regarding how to mechanically stabilize their deformity. The patient was given education about shoe recommendations specific for the condition. The patient was educated about custom orthotics and how appropriate shoes and orthotics can prevent further worsening of the deformity. The patient was educated about how bad shoe habits can worsen the condition. NSAIDS, P.T., injections and other conservative treatments were discussed. Both surgical and non surgical treatments were discussed, but conservative options were emphasized. 4. A cquired keratosis [keratoderma] palmaris et plantaris Notes: Pre-ulcerative keratoderma debrided sharply down to the level of healthy tissue using a 15 blade. After removal of overlying extensive hyperkeratosis, healthy tissue was noted and care was taken to assure that no undermining or probing was present. It should be noted that no probing was noted and no infection or drainage was noted. 5. T ype 2 diabetes mellitus with diabetic peripheral angiopathy without gangrene Notes: Patient educated on proper diabetic foot care and the importance of tight glycemic control in regards to the prevention of diabetic manifestations and symptomatology in lower extremity. Explained to patient the importance of keeping interdigital spaces dry, not walking bare foot, having supportive shoe gear, using moisturizer to skin on feet daily especially in winter months, and checking feet daily for any new lesions or areas suspicious of trauma infection or ulceration. Explained to patient to return to ED if any change in foot health associated with signs of systemic infection including but not limited to nausea, vomiting, fever. a * Follow Up: 3 Months Billing Information: * Visit Code: 10747 Office Visit, Est Pt., Level 3. * Procedure Codes: * Electronic signature of RAOUL WELLER DPM on 04/20/2025 at 01:38 AM SUPERVISOR OF GUIDANCE AND TESTING Sign off status: Pending * Provider: Zara WELLER Date: 07/07/2023 Generated for Bhanu jj/Emilie/Latosha on: 06/20/2024 01:38 AM SUPERVISOR OF GUIDANCE AND TESTING
--- OUTSIDE RECORDS SUMMARY | 2024-06-21 03:00 | XMS_ITS ---
Author Organization [facility] Address [address] [facility] [address] [place], [place] [phone] Care Team Providers Care Public Transit Specialist Name Role Phone HERIBERTO DA SILVA Unavailable [phone] Marcus Marley Unavailable Unavailable ZINA STORY Unavailable [phone] REASON FOR VISIT left toe infected D+ Encounters Encounter Location Date Provider Diagnosis [facility] [place] [address] [facility] 5 [place], [place] [phone] 06/21/2024 ZINA STORY Plan Of Treatment Next Appt Details Provider Name:HERIBERTO WOODWARD, 04/28/2025 08:10:00 AM, [address] [place] [address], [id number], Progress Notes * MARIA T BUSTILLOSDOB: [birth year] (75 yo M)Acc No.[id number]:06/21/2024 Patient: Javier MARIA T DALLAS Provider: Bailey Story DPM :1950 A ge:74 Y S ex:Male Date:06/21/2024 Address:[address] [place], [place] [phone] Subjective: * Chief Complaints: * l eft toe infected D+ Billing Information: * Procedure Codes: * Electronic signature of ZINA STORY DPM on 04/20/2025 at 01:38 AM MARKET BASKET MAKER Sign off status: Pending * Provider: Bailey Story DPM Date: 0 06/21/2024 Generated for Bhanu jj/Emilie/Latosha on: 06/20/2024 01:38 AM MARKET BASKET MAKER
--- OUTSIDE RECORDS SUMMARY | 2024-07-01 08:40 | XMS_ITS ---
Author Organization [facility] Address [address] [place], [place] [address] Care Team Providers Care Clip Coater Name Role Phone HERIBERTO DA SILVA Unavailable [phone] DonellMarcus victor Unavailable Unavailable ZINA STORY Unavailable [phone] REASON FOR VISIT The patient is concerned that the left great toe has a black spot underneath it. He is wondering ifit is infected., Patient presents for at-risk foot care . The patient has painful toenails and calluses that are causing difficulty with ambulation and shoegear. The onset is gradual Encounters Encounter Location Date Provider Diagnosis [address] [id number] 07/01/2024 ZINA STORY Tinea unguium B35.1 ; Acquired keratosis [keratoderma] palmaris et plantaris L85.1 ; Atherosclerosis of [place] arteries of extremities with intermittent claudication, bilateral legs I70.213 ; Pain in right foot M79.671 and Pain in left foot M79.672 Assessments Encounter Date Diagnosis (ICD Code) Assessment Notes Treatment Notes Treatment Clinical Notes Section Notes 07/01/2024 Tinea unguium (ICD-10 - B35.1) Nails 1-5 Bilateral were debrided extensively with nail nippers and emery board, reducing length and girth to pink healthy tissue with any subungual debris and necrotic tissue removed 07/01/2024 Acquired keratosis [keratoderma] palmaris et plantaris (ICD-10 - L85.1) A total of 3 corns or calluses, as described in the note above, were cut and pared utilizing a #15 blade 07/01/2024 Atherosclerosis of [place] arteries of extremities with intermittent claudication, bilateral legs (ICD-10 - I70.213) 07/01/2024 Pain in right foot (ICD-10 - M79.671) 07/01/2024 Pain in left foot (ICD-10 - M79.672) Plan Of Treatment Treatment Notes Assessment Notes Tinea unguium Nails 1-5 Bilateral were debrided extensively with nail nippers and emery board, reducing length and girth to pink healthy tissue with any subungual debris and necrotic tissue removed Acquired keratosis [keratode rma] palmaris et plantaris A total of 3 corns or calluses, as described in the note above, were cut and pared utilizing a #15 blade Next Appt Details Follow Up: 10 - 12 weeks, Re ason: At-Risk Foot care, sooner if problems develop. Provider Name:HERIBERTO WOODWARD, 04/28/2025 08:10:00 AM, [address] [place] [address], [id number], History and Physical Notes * HPI (History of Present Illness) Category Sub-Category Detail Notes Category Not es HPI New Complaint Established evelin ent presents with a new complaint., Patient complains of an issue to a large callus on the bottom of the left great toe that is discolored and infected. He states that this has happened before. He is also wanting his nails cut. , MA: [facility] Examination Category Sub-Category Detail Notes Category Not es Dermatologic Skin findings: Skin is thin, at rophic and lacking pedal hair Nail pathology: Nails 1, 2, 3, 4, an d 5 bilateral are elongated, thick, discolored, and dystrophic with subungual debris. They are painful to palpation Hypertrophic / hyperkeratotic lesion: pl ida aspect of the left and right 5th metatarsal head. The plantar aspect of the left hallux has a dark callus. There is old sanguinous material present within the hyperkeratotic tissue. Post debridement, healthy tissue noted. There was a small split within the skin that caused the bleeding; no active bleeding noted. No erythema, no calor, no rubor, no active drainage Neurologic Gross sensation Grossly intact t o light touch. There is negative Tinel's sign Vascular Dorsalis pedis pulse: 1/4 bilateral Edema: No edema bilateral Capillary refill: greater than 3 secon ds Posterior tibial pulse: 0/4 bilateral Physical Examination General appearance: Alert, pleasant, well-nourished and in no acute distress Musculoskeletal Muscle Strength Muscle strength is 5/5 in regards to dorsiflexion, plantarflexion, inversion, and eversion in bilateral lower extremities Progress Notes * MARIA T BUSTILLOSDOB: [birth year] (75 yo M)Acc No.[id number]:07/01/2024 Patient: MARIA T CRUZ Provider: Bailey Story DPM :1950 A ge:74 Y S ex:Male Date:07/01/2024 Address:[address] [place], [place] [address] Subjective: * Chief Complaints: * T he patient is concerned that the left great toe has a black spot underneath it. He is wondering if it is infected.Patient presents for at-risk foot care . The patient has painful toenails and calluses that are causing difficulty with ambulation and shoegear. The onset is gradual * HPI: H PI: New Complaint E stablished patient presents with a new complaint., Patient complains of an issue to a large callus on the bottom of the left great toe that is discolored and infected. He states that this has happened before. He is also wanting his nails cut. , MA: [facility]. * ROS: G eneral / Constitutional: Patient denies c hills, fever, weight loss. ? M usculoskeletal: Patient denies w eakness, broken foot bone. ? P eripheral Vascular: Patient denies p ain / cramping in legs after exertion, ulceration of feet. S kin: Patient complains of f ungal nails, nail changes, calluses and corns. N eurologic: Patient denies b alance difficulty, confusion, difficulty speaking, dizziness. * Medications: N one Objective: * Examination: P hysical Examination: General appearance: A lert, pleasant, well-nourished and in no acute distress. D ermatologic: Skin findings: S kin is thin, atrophic and lacking pedal hair. Hypertrophic / hyperkeratotic lesion: p lantar aspect of the left and right 5th metatarsal head. The plantar aspect of the left hallux has a dark callus. There is old sanguinous material present within the hyperkeratotic tissue. Post debridement, healthy tissue noted. There was a small split within the skin that caused the bleeding; no active bleeding noted. No erythema, no calor, no rubor, no active drainage. Nail pathology: N ails 1, 2, 3, 4, and 5 bilateral are elongated, thick, discolored, and dystrophic with subungual debris. They are painful to palpation. ? V ascular: Dorsalis pedis pulse: 1 /4 b ilateral. Posterior tibial pulse: 0 /4 bilateral. Capillary refill: g reater than 3 seconds. Edema: N o edema bilateral. N eurologic: Gross sensation G rossly intact to light touch. There is negative Tinel's sign. M usculoskeletal: Muscle Strength M uscle strength is 5/5 in regards to dorsiflexion, plantarflexion, inversion, and eversion in bilateral lower extremities. ? Assessment: * Assessment: 1. T inea unguium - B35.1 (Primary) 2 . A cquired keratosis [keratoderma] palmaris et plantaris - L85.1 3 . A therosclerosis of [place] arteries of extremities with intermittent claudication, bilateral legs - I70.213 4 . P ain in right foot - M79.671 5 . P ain in left foot - M79.672 Plan: * Treatment: 2. A cquired keratosis [keratoderma] palmaris et plantaris Notes: A total of 3 corns or calluses, as described in the note above, were cut and pared utilizing a #15 blade * Follow Up: 1 0 - 12 weeks (Reason: At-Risk Foot care, sooner if problems develop.) Billing Information: * Visit Code: 06080 Office Visit, Est Pt., Level 3. * Procedure Codes: * Electronic signature of ZINA STORY DPM on 04/20/2025 at 01:38 AM FINANCIAL SERVICES SPECIALIST Sign off status: Pending * Provider: Bailey Story DPM Date: 0 07/01/2024 Generated for Bhanu jj/Faxing/eTransmitting on: 06/20/2024 01:38 AM FINANCIAL SERVICES SPECIALIST
--- OUTSIDE RECORDS SUMMARY | 2024-11-25 03:10 | XMS_ITS ---
Author Organization [facility] Address [address] [place], [place] [id number] Care Team Providers Care Rotor Casting Machine Setup Operator Name Role Phone DA SILVAHERIBERTO MOSES Unavailable [phone] Donell Marcus Unavailable Unavailable Allergies No Known [...] : Encounters Encounter Location Date Provider Diagnosis [address] [id number] 11/25/2024 HERIBERTO DA SIVLA Tinea unguium B35.1 ; Pain in right foot M79.671 ; Pain in left foot M79.672 ; Atherosclerosis of [place] arteries of extremities with intermittent claudication, bilateral [...] foot (ICD-10 - M79.672) 11/25/2024 Atherosclerosis of [place] arteries of extremities with intermittent claudication, bilateral [...] develop. Provider Name:HERIBERTO WOODWARD, 04/28/2025 08:10:00 AM, [address] [place] [address], [id number], History and Physical Notes * HPI (History [...] MARIA T BUSTILLOSDOB: [birth year] (75 yo M)Acc No.[id number]:11/25/2024 Patient: MARIA T CRUZ Provider: Fredy DA SILVA :1950 A ge:74 Y S ex:Male Date:11/25/2024 Address:[address] [place] [address] Subjective: * Chief Complaints: * * General [...] - M79.672 4 . A therosclerosis of [place] arteries of extremities with intermittent claudication, bilateral [...] SKIN LESIONS, 2 TO 4, Modifiers: Q8 90669 DEBRIDE NAIL, 6 OR MORE, Modifiers: 59 , Q8 * Follow Up: 1 0 - 12 weeks (Reason: At-Risk Foot care, sooner if problems develop.) Billing Information: * Procedure Codes: 63017 TRIM SKIN LESIONS, 2 TO 4. Modifiers: Q8 01275 DEBRIDE NAIL, 6 OR MORE. Modifiers: 59, Q8 * Electronic signature of CELESTE DA SILVA DPM on 04/20/2025 at 01:38 AM BIOMASS PLANT TECHNICIAN Sign off status: Pending * Provider: Fredy DA SILVA Date: 0 11/25/2024 Generated for Bhanu jj/Emilie/Latosha on: 1 06/20/2024 01:38 AM BIOMASS PLANT TECHNICIAN
--- OUTSIDE RECORDS SUMMARY | 2025-02-10 02:30 | XMS_ITS ---
Author Organization [facility] Address [address] [place], [place] [address] Care Team Providers Care Batterboard Setter Name Role Phone DA SILVA, HERIBERTO Unavailable [phone] Marcus Marley Unavailable Unavailable REASON FOR VISIT *General care Encounters Encounter Location Date Provider Diagnosis [address] [id number] 02/10/2025 HERIBERTO DA SILVA Tinea unguium B35.1 ; Pain in right foot M79.671 ; Pain in left foot M79.672 ; Atherosclerosis of [place] arteries of extremities with intermittent claudication, bilateral legs I70.213 and Acquired keratosis [keratoderma] palmaris et plantaris L85.1 Assessments Encounter Date Diagnosis (ICD Code) Assessment Notes Treatment Notes Treatment Clinical Notes Section Notes 02/10/2025 Tinea unguium (ICD-10 - B35.1) Nails 1-5 Bilateral were debrided extensively with nail nippers and emery board, reducing length and girth to pink healthy tissue with any subungual debris and necrotic tissue removed 02/10/2025 Pain in right foot (ICD-10 - M79.671) 02/10/2025 Pain in left foot (ICD-10 - M79.672) 02/10/2025 Atherosclerosis of [place] arteries of extremities with intermittent claudication, bilateral legs (ICD-10 - I70.213) 02/10/2025 Acquired keratosis [keratoderma] palmaris et plantaris (ICD-10 [...] develop. Provider Name:HERIBERTO WOODWARD, 04/28/2025 08:10:00 AM, [address] [place] [address], [id number], History and Physical Notes * Examination Category Sub-Category Detail Notes Category Not [...] MARIA T BUSTILLOSDOB: [birth year] (75 yo M)Acc No.[id number]:02/10/2025 Patient: MARIA T CRUZ Provider: Fredy DA SILVA :1950 A ge:74 Y S ex:Male Date:02/10/2025 Address:[address] [place], [place] [address] Subjective: * Chief Complaints: * * General care * ROS: G eneral / Constitutional: Patient [...] b alance difficulty, confusion, difficulty speaking, dizziness. Objective: * Examination: P hysical Examination: General [...] - M79.672 4 . A therosclerosis of [place] arteries of extremities with intermittent claudication, bilateral [...] problems develop.) Billing Information: * Procedure Codes: * Electronic signature of CELESTE DA SILVA DPM on 04/20/2025 at 01:38 AM OPTOMETRIST Sign off status: Pending * Provider: Fredy DA SILVA Date: 0 02/10/2025 Generated for Bhanu jj/Emilie/Latosha on: 1 06/20/2024 01:38 AM OPTOMETRIST
--- OUTSIDE RECORDS SUMMARY | 2025-02-17 05:40 | XMS_ITS ---
Author Organization [facility] Address [address] [place], [place] [address] Care Team Providers Care Cryptanalyst Name Role Phone AVINASH HERIBERTO Unavailable [phone] DonellJamalMarcus Unavailable Unavailable Allergies No Known Allergies [...] 02/17/2025 Encounters Encounter Location Date Provider Diagnosis [address] [id number] 02/17/2025 HERIBERTO DA SILVA Fungal infection of nail B35.1 ; Pain in right toe(s) M79.674 ; Pain in left toe(s) M79.675 and Atherosclerosis of [place] arteries of extremities with intermittent claudication, bilateral legs I70.213 Assessments Encounter Date Diagnosis (ICD Code) Assessment Notes Treatment Notes Treatment Clinical Notes Section Notes 02/17/2025 Fungal infection of nail (ICD-10 - B35.1) 02/17/2025 Pain in right toe(s) (ICD-10 - M79.674) 02/17/2025 Pain in left toe(s) (ICD-10 - M79.675) 02/17/2025 Atherosclerosis of [place] arteries of extremities with intermittent claudication, bilateral legs (ICD-10 - I70.213) Plan Of Treatment Next Appt Details Provider Name:HERIBERTO LARA NOHELIACURTIS, 04/28/2025 08:10:00 AM, [address] [place] [address], [id number], History and Physical Notes * HPI (History [...] * AKHILHERIBERTOMARIA TDOB: [birth year] (75 yo M)Acc No.[id number]:02/17/2025 Patient: MARIA T CRUZ Provider: Fredy DA SILVA :1950 A ge:74 Y S ex:Male Date:02/17/2025 Address:[address] [place] [address] Subjective: * Chief Complaints: * * General [...] - M79.675 4 . A therosclerosis of [place] arteries of extremities with intermittent claudication, bilateral legs - I70.213 ? Plan: * Preventive Medicine: Screenings: F all risk screening F all Risk Assessment: N o falls in the past year. Billing Information: * Visit Code: 88674 Office Visit, Est Pt., Level 3. * Electronic signature of CELESTE DA SILVA DPM on 04/20/2025 at 01:39 AM SOFTWARE DEPLOYMENT ENGINEER Sign off status: Pending * Provider: Fredy DA SILVA Date: 0 02/17/2025 Generated for Bhanu jj/Emilie/Rubenitting on: 06/20/2024 01:39 AM SOFTWARE DEPLOYMENT ENGINEER
[2025-04-13 13:34] VITALS: BMI 33.8
--- NOTE | 2025-04-13 13:50 | PC.NURSE ---
[facility] has started construction of its new state of the art ER which will open Spring 2026. With this, we anticipate parking may be a challenge for some our surgical patients and families. Parking spaces are limited but are available for all Surgical, obstetrics, and ER patients sharing this lot. If you arrive and find you are having a hard time finding a parking space, please note that we understand the challenges, please drive around the hospital and park near Hospital Entrance 1. When you enter this entrance, you can ask a volunteer to direct or take you back to the surgical waiting area to check in. We appreciate everyone?s understanding of these expected challenges while we build for your future. Report to the Outpatient Waiting Room, entrance under the green pavilion located off [address], at time __0700am on date _04/20/25 . Planned Procedure Time: __0900am .? Time changes happen often and if your time is changed the preop area will call you the afternoon before. - You and your visitor will be asked to self-screen and do not enter if you have any COVID symptoms. Please call surgeon if you need to reschedule. - A mask is optional within the hospital at this time. Patients may have clear liquids (water, carbonated beverages, clear teas, apple juice) until 3 hours prior to surgery with a maximum of 20 ounces. - No food from midnight until time of surgery and no smoking, or chewing tobacco (or any form of nicotine). No chewing gum, candy or mints. (0600am) Take only the following medications with a SIP of water on the morning of surgery: NONE DO NOT STOP ANY OF YOUR OTHER PRESCRIPTION MEDICATIONS PRIOR TO SURGERY EXCEPT THE FOLLOWING Hold all vitamins and supplements for 3 days per anesthesiologist. Medications to discontinue per physician Xarelto already on hold per pt Date to take last dose 04/13/25 Please no make-up, nail ukrainian, hairspray, perfume, deodorant, or body powder the day of surgery.? No jewelry (including any body piercings) or valuables the day of surgery, leave them at home.? Please take a shower or bath the night before, or the morning of, surgery with an antibacterial soap.? Wear comfortable, loose fitting clothing.? - Jewelry must be removed prior to entering the operating room.? Rings and piercings that are not removed may be cut off. - The hospital will not accept responsibility for valuables.? - Please leave all valuables, including medications, at home the day of surgery. If you are going home after surgery, a licensed intermodal owner operator truck driver must drive you home.? - NO public transportation without another adult if you receive anesthesia. - We recommend that an adult stay with you for 24 hours following discharge. - We also recommend that you do not drive, make important decision, drink alcoholic beverages, or take any drugs that were not prescribed by your health care provider for at least 24 hours after your discharge time. Follow any additional instructions given to you from your surgeon. Telephone instructions given to ___Patient and asked if any additional questions and then verbalized understanding. Patient advised to call surgeon office or pre surgery nurse liaison [phone] if any additional questions.
[2025-04-20] VITALS (9 sets, daily range): BP systolic 147–173; BP diastolic 72–97; PULSE 63–78; RESP 14–18; TEMP 36.2–36.4; O2SAT 94–99; BMI 33.5
--- OUTSIDE RECORDS SUMMARY | 2025-04-20 01:38 | XMS_ITS | Clinical Summary ---
Author Organization [facility] Address [address] [place] [address] Care Team Providers Care Deli Clerk Name Role Phone Marcus Marley MD Primary Care Provider [phone] Bertin Mustafa MD Unavailable [phone] Allergies No known active allergies Medications [...] Diagnosed Date Coronary artery disease invo lving [place] coronary artery of [place] heart without angina pectoris 08/13/2023 Abnormal stress test 06/14/2023 Longstanding persistent atrial fibrillation 03/26 Anticoagulation adequate 04/05/2023 HTN (hypertension), benign 04/05/2023 Renal insufficiency 04/05/2023 Overview (04/05/2023): Creat 2.2 --- 02/01/2023 Resolved Problems Problem Noted Date Diagnosed Date Resolved Date Preop cardiovascular exam 08/13/2023 Encounters Date Type Department Care Team Description 04/13/2025 Telephone [facility] [address] [place] [address] Bertin Mustafa MD Ekg from Last 3 Months Social History Tobacco [...] 36.1 C (97 F) 07/03/2023 10:59 AM TRIMMER PRESS CLIPPINGS Respiratory Rate 18 12/16/2024 2:02 PM CDT Oxygen Saturation 95% 07/03/2023 10:59 AM TRIMMER PRESS CLIPPINGS Inhaled Oxygen Concentration - - Weight 104.3 kg (230 lb) 12/16/2024 2:02 PM CDT Height 177.8 cm (5' 10) 12/16/2024 2:02 PM CDT Body Mass Index 33 12/16/2024 2:02 PM CDT Plan of Treatment Upcoming Encounters Date Type Department Care Team (Late st Contact Info) Description 12/22/2025 12:45 PM CDT Office Visit [facility] [address] [place] [address] Bertin Mustafa MD [address] [place] [address] Health Maintenance Due Date Last Done Comments [...] CDT) CHOLESTEROL 132 MG/DL 06/04/2023 10:05 AM [facility] Comment:DESIRABLE: <200 TRIGLYCERIDES 264 MG/DL 06/04/2023 10:05 AM [facility] Comment:200-499 HIGH HDL 14(L) >39 MG/DL 06/04/2023 10:05 AM [facility] LDL (CALCULATED) 65 MG/DL 06/04/19 10:05 AM [facility] Comment:<100 OPTIMAL VLDL CALCULATION 53 MG/DL 06/04/19 10:05 AM [facility] Comment:REFERENCE RANGE NOT ESTABLISHED CHOL/HDL RATIO 9.4 06/04/2023 10:05 AM [facility] Comment:REFERENCE RANGE NOT ESTABLISHED LDL/HDL 4.6 06/04/2023 10:05 AM [facility] Comment:REFERENCE RANGE NOT ESTABLISHED NON HDL CHOLESTEROL 118 MG/DL 06/04/2023 10:05 AM [facility] Comment:REFERENCE RANGE NOT ESTABLISHED 01/31/2023 4:04 AM CDT Karishma Garcia MD LABORATORY Final Result Performing Organization Address City/State/[facility] Co de Phone Number [facility] [address] [place] [address], [id number] from Last 3 Months or Most Recently Relevant to Health Maintenance Insurance [facility] MEDICARE Advance Directives * Full Code (Latest Code Status on File) Date Activated Date Inactivated Comments 07/03/2023 2:27 PM 07/03/2023 6:01 PM Care Teams Deli Clerk Relationship Specialty Start Date End Date Marcus Marley MD [address] [place] [address] PCP - General INTERNAL MEDICINE 03/31/23 Bertin Mustafa MD [address] [place] [address] EP Consulting Technical Director CLINICAL CARDIAC ELECTROPHYSIOLOGY 12/16/24
--- OUTSIDE RECORDS SUMMARY | 2025-04-20 01:38 | XMS_ITS | Patient Health Record ---
Author Organization [facility] Address [address] [place], [place] [address] Care Team Providers Care Hand Splitter Name Role Phone HERIBERTO DA SILVA Unavailable [phone] DonellJamalMarcus Unavailable Unavailable JEZ ZINA Unavailable [phone] CHASE WELLER Unavailable [phone] Allergies No Known Allergies Reason For Referral [...] 02/17/2025 Encounters Encounter Location Date Provider Diagnosis [address] [id number] 05/06/2024 CHASE DAVYDOV Unspecified atherosclerosis of [place] arteries of extremities, bilateral legs I70.203 ; [...] with diabetic peripheral angiopathy without gangrene E11.[address] [id number] 07/01/2024 ZINA SNOOK Tinea unguium B35.1 ; Acquired keratosis [keratoderma] palmaris et plantaris L85.1 ; Atherosclerosis of [place] arteries of extremities with intermittent claudication, bilateral legs I70.213 ; Pain in right foot M79.671 and Pain in left foot M79.[address] [id number] 11/25/2024 HERIBERTO DA SILVA Tinea unguium B35.1 ; Pain in right foot M79.671 ; Pain in left foot M79.672 ; Atherosclerosis of [place] arteries of extremities with intermittent claudication, bilateral legs I70.213 and Acquired keratosis [keratoderma] palmaris et plantaris L85.[address] [id number] 02/17/2025 HERIBERTO DA SILVA Fungal infection of nail B35.1 ; Pain in right toe(s) M79.674 ; Pain in left toe(s) M79.675 and Atherosclerosis of [place] arteries of extremities with intermittent claudication, bilateral legs I70.[address] [id number] 09/23/2024 ZINA SNOOK Tinea unguium B35.1 ; Acquired keratosis [keratoderma] palmaris et plantaris L85.1 ; Atherosclerosis of [place] arteries of extremities with intermittent claudication, bilateral legs I70.213 ; Pain in right foot M79.671 and Pain in left foot M79.672 Assessments Encounter Date Diagnosis (ICD Code) Assessment Notes Treatment Notes Treatment Clinical Notes Section Notes 05/06/2024 Unspecified atherosclerosis of [place] arteries of extremities, bilateral legs (ICD-10 - [...] foot (ICD-10 - M79.672) 09/23/2024 Atherosclerosis of [place] arteries of extremities with intermittent claudication, bilateral legs (ICD-10 - I70.213) 07/01/2024 Atherosclerosis of [place] arteries of extremities with intermittent claudication, bilateral [...] foot (ICD-10 - M79.671) 11/25/2024 Atherosclerosis of [place] arteries of extremities with intermittent claudication, bilateral legs (ICD-10 - I70.213) 09/23/2024 Pain in right foot (ICD-10 - M79.671) 02/17/2025 Atherosclerosis of [place] arteries of extremities with intermittent claudication, bilateral [...] Details Provider Name:HERIBERTO WOODWARD, 04/28/2025 08:10:00 AM, [address] [place] [address], [phone], Insurance Providers Payer Name Payer Address Payer Phone Subscriber Number Group Number Insured Name Patient Relationship to Insured Coverage Start Date Coverage End Date AARP MedicareCom plete ([facility]) [address] [place], [place] [id number] MARIA T LAGUNA Self - patient is the insured
--- OUTSIDE RECORDS SUMMARY | 2025-04-20 01:38 | XMS_ITS | Encounter Summary ---
Author Organization [facility] Address [address] [place] [address] Care Team Providers Care Hyster Machine Operator Name Role Phone Marcus Marley MD Primary Care Provider [phone] Bertin Mustafa MD Unavailable [phone] Encounter Details Date Type Department Care Team (Late Contact Info) Description 06/18/2023 Prep for Procedure [facility] [address] [place] [address] [phone] Bertin Mustafa MD [address] [place] [address] Social History Tobacco Use Types Packs/Day Years [...] Description 12/22/2025 12:45 PM CDT Office Visit [facility] [address] [place] [address] [phone] Bertin Mustafa MD [address] [place] [address] documented as of this encounter Visit Diagnoses Not on filedocumented in this encounter Care Teams Hyster Machine Operator Relationship Specialty Start Date End Date Marcus Marley MD [address] [place] [phone] PCP - General INTERNAL MEDICINE 03/31/23 Bertin Mustafa MD [address] [place] [address] EP Granular Operator CLINICAL CARDIAC ELECTROPHYSIOLOGY 12/16/24 documented as of this encounter
--- NOTE | 2025-04-20 07:25 | ECG_ITS ---
Test Date: 2025-04-20 09:08:43 Measurements Intervals [place] Rate: 64 P: 56 IA: 208 QRS: -4 QRSD: 93 T: 22 QT: 408 QTc: 423 Interpretive Statements SINUS RHYTHM INFERIOR INFARCT, OLD Compared to ECG 02/20/2024 11:38:27 Ventricular premature complex(es) no longer present Electronically Signed On 04-20-2025 13:35:46 FREIGHT ASSOCIATE by Timbo Marie M.D.
[2025-04-20] MEDS: LACTATED RINGERS 1,000 ML 30 ML IV CONT ×2 (08:30→13:43)
[2025-04-20 09:03] LABS: Anion Gap 8 mmol/L (4-12); Blood Urea Nitrogen 13 mg/dL (9-20); Calcium 9.4 mg/dL (8.4-10.2); Carbon Dioxide 26 mmol/L (22-30); Chloride 103 mmol/L (98-107); Estimated CRCL calculation 71 ml/min; Estimated Glomerular Filt Rate > 60; Glucose 196 mg/dL (65-110); Potassium 4.5 mmol/L (3.4-5.0); Sodium 137 mmol/L (137-145)
--- NOTE | 2025-04-20 10:04 | WPDANESEPPF ---
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 Patient Data Age: 75 Gender: M Height: 1.78 m Weight: 107 kg Allergies Allergy/AdvReac Type Severity Reaction Status Date / Time No Known Allergies Allergy Verified 04/20/25 09:13 Home Medications ?Medication ?Instructions ?Recorded ?Confirmed ?Type flash glucose sensor (FreeStyle 02/19/24 04/13/25 History Lisette 2 Sensor kit) glimepiride 2 mg tablet 2 mg PO QAM 02/19/24 04/20/25 History tamsulosin 0.4 mg capsule 0.4 mg PO DAILY 02/19/24 04/20/25 History acetaminophen 300 mg-codeine 30 mg 1 tablet PO Q8H PRN pain #20 tabs 04/01/25 04/13/25 Rx tablet mupirocin 2 % topical ointment 1 applic topical ONCE 30 days #15 04/06/25 04/13/25 Rx (Centany) grams losartan 25 mg tablet 25 mg PO DAILY 04/13/25 04/20/25 History rivaroxaban 20 mg tablet (Xarelto) 20 mg PO QPM 04/13/25 04/20/25 History Held on 04/13/25. Instructions: .Provider Order Laboratory Tests 04/20/25 04/20/25 08:21 08:34 Sodium 137 mmol/L (137-145) Potassium 4.5 mmol/L (3.4-5.0) Chloride 103 mmol/L (98-107) Carbon Dioxide 26 mmol/L (22-30) Anion Gap 8 mmol/L (4-12) BUN 13 mg/dL (9-20) Creatinine 0.99 mg/dL (0.7-1.3) Estim Creat Clear Calc 71 ml/min Estimated GFR > 60 (59 - ) Glucose 196 H mg/dL (65-110) POC Capillary Glucose 202 H mg/dl (65-105) Calcium 9.4 mg/dL (8.4-10.2) Patient hx anesthesia problems: none Family hx anesthesia problems: none Results Review: All pre-operative results and documents have been reviewed as part of the pre-operative evaluation. [facility] Past Medical History Medical History Malignant neoplasm of pinna Prophylactic antibiotic Postoperative pain Antibiotic prophylaxis recommended Antibiotic prophylaxis not indicated Neoplasm of ear Dyslipidemia Hypertension Surgical History Surgical History History of incision and drainage 02/20/24 Incision and drainage of pilonidal abscess Dr. 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 Informed Consent: The patient's anesthetic plan and its attendant risks and benefits were discussed with the patient/family/POA. Questions were solicited and answers provided to the satisfaction of the patient/family/POA.
--- NOTE | 2025-04-20 10:31 | WPDHPUPDATE1 ---
History and Physical Update Update Date/Time: 04/20/25 10:31 History and Physical has been reviewed, including an updated exam of the patient. There are NO changes in the patient's condition. Risks, benefits, and alternatives have been discussed and questions answered. Patient agrees to proceed with procedure.
--- NOTE | 2025-04-20 11:33 | S_PTH ---
PATIENT: Kenji Newby LOC: [facility] U#:[id number] AGE/SX: 75/M ROOM: RE04/20/[address]: Jose M Santo MD : 1950 BED: DIS: 04/20/2025 SPEC #: [id number] RECD: 04/20/25 11:46 STATUS: ADELE REQ #: [id number] VAMSI: 04/20/25 11:[address]: Jose M Santo DEPT: [facility] Surgical RECD BY: Jossie Reynolds ENTERED: 04/20/25 11:47 SP TYPE: Surgical OTHR DR: Marcus Marley MD Tissues: FSA - Frozen Section FSB - Frozen Section FSC - Frozen Section FSD - Frozen Section FSE - Frozen Section FSF - Frozen Section G - Skin H - Skin Procedures: Hematoxylin and Eosin Stain Frozen Section Gross and Microscopic Level 4
--- NOTE | 2025-04-20 11:45 | SUR.OPER ---
Frozen section specimens x 5 of Right Ear sent with ANABEL Heard and received in pathology by Jossie
--- NOTE | 2025-04-20 12:38 | SUR.OPER ---
Frozen Section Specimen sent with ANABEL Heard and received in pathology by Jossie
[2025-04-20] MEDS: BACITRACIN/POLYMYXIN B OINT 15 GM TUBE 1 APPLIC TOPICAL (13:00)
--- NOTE | 2025-04-20 13:59 | W.PM.PROC2 ---
Procedure Note - Detailed Date of Procedure 04/20/25 Pre-op Diagnosis Malignant neoplasm of right pinna Post-op Diagnosis Same Procedure Performed Wide local excision of right pinna lesion Reconstruction with full thickness skin graft, harvested from right posterior neck Surgeon Jose M Santo MD Anesthesia General Description of Procedure Patient was identified in the preoperative area, and informed written consent was obtained. The patient was transported to the operating room and placed supine on the operating room table. The anesthesiology service induced general anesthesia and ventilated the patient with an LMA. The patient was then positioned, prepped, and draped in sterile fashion. A surgical time-out was conducted confirming the patient's identity and the procedure to be performed. The right ear and right neck were injected with 1% lidocaine with epinephrine, 15cc in total. The right pinna lesion was measured to be 1cm x 1cm. This lesion was located in the scaphoid fossa. A 15 blade and curved iris scissors were used to excise the lesion with approximately 1cm margins. The excision included the underlying cartilage leaving the posterior pinna skin intact. Hemostasis was achieved and the wound was irrigated. The resulting defect measured 3.0cm x 2.5cm. The lesion was sent for permanent pathology marked with a short stitch superior and a long stitch lateral. Five margins were then taken from the pinna and sent for frozen pathology: superior, inferior, medial, lateral, and deep. 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 The other margins were negative for malignancy. Additional tissue was excised superiorly and sent for permanent pathology as superior margin #2. Further tissue was excised superiorly and sent for frozen pathology as superior margin #3. This frozen specimen was negative for malignancy. The resulting defect was irrigated and hemostasis was confirmed. The final defect measured 4.0cm x 2.5cm. Attention was turned to the full thickness skin graft reconstruction. A right posterior neck skin crease was identified as the location to harvest the skin graft. A 3cm x 3cm graft was planned and this was harvested in elliptical fashion with a length of 6cm. The graft was harvested using a 15 blade and curved iris scissors. The graft was thinned and trimmed to appropriately fill the defect and was set aside. The neck wound was undermined to allow for a tension-free closure. The neck wound was then irrigated and hemostasis was confirmed. It was closed in layers using 3-0 and 4-0 Vicryl suture for the deep layers. The skin was closed with 4-0 chromic suture in running fashion. Attention was turned to the inset of the skin graft. The graft was placed in the ear defect and was sutured in place using 5-0 fast gut suture. A xeroform bolster was then sutured in place using 2-0 silk suture x2. Bacitracin was applied to the xeroform bolster as well as the neck incision. The patient was returned to the anesthesiology service. He was awoken, the LMA was removed, and he was transferred to the postoperative recovery area in stable condition. There were no immediate complications. Estimated Blood Loss 50
[2025-04-20] MEDS: fentaNYL CITRATE INJ (*CRX) 100 MCG/2 ML VIAL 25 MCG IV PUSH ×2 (14:10→14:18)
[2025-04-20] MEDS: oxyCODONE HCL (*CRX) 5 MG TAB IR PO (14:53)
== END 2025-04-20 15:35 | disposition home or self-care (01) ==
PROVIDERS: Anesthesiology; PCP Internal Medicine; Visit Provider Otolaryngology
PROC: (CPT 11646; principal; 2025-04-20 09:45)
DX: D04.21 Carcinoma in situ of skin of right ear and external auricular canal (principal); G89.18 Other acute postprocedural pain; E78.5 Hyperlipidemia, unspecified; I10 Essential (primary) hypertension; E66.9 Obesity, unspecified; Z68.33 Body mass index [BMI] 33.0-33.9, adult; Z79.01 Long term (current) use of anticoagulants; Z79.84 Long term (current) use of oral hypoglycemic drugs; Z98.890 Other specified postprocedural states; Z85.828 Personal history of other malignant neoplasm of skin; Z80.0 Family history of malignant neoplasm of digestive organs; Z82.49 Family history of ischemic heart disease and other diseases of the circulatory system
CPT/HCPCS: 11646; 15260; 36415; 80048; 82948; 88305; 88331; 93005; A9270; J2003; J2371; J2405; J2704; J3010; J7120

== ENCOUNTER 2025-05-13 08:17 | Outpatient (CLI) | payer MEDICARE, SELFPAY ==
--- OUTSIDE RECORDS SUMMARY | 2023-12-04 02:10 | XMS_ITS ---
Author Organization [facility] Address [address] [place], [place] [phone] Care Team Providers Care Mobile Developer Name Role Phone DA SILVAHERIBERTO MOSES Unavailable [phone] Marcus Marley Unavailable Unavailable CHASE WELLER Unavailable [phone] REASON FOR VISIT *General care Encounters Encounter Location Date Provider Diagnosis [address] [id number] 12/04/2023 CHASE WELLER Plan Of Treatment Next Appt Details Provider Name:HERIBERTO WOODWARD, 06/30/2025 08:20:00 AM, [address] [place] [address], [id number], Progress Notes * MARIA T BUSTILLOSDOB: [birth year] (75 yo M)Acc No.[id number]:12/04/2023 Patient: Javier DALLASMARIA T Provider: Zara WELLER :1950 A ge:73 Y S ex:Male Date:12/04/2023 Address:[address] [place], [place] [phone] Subjective: * Chief Complaints: * * General care Billing Information: * Procedure Codes: * Electronic signature of RAOUL WELLER DPM on 05/13/2025 at 08:24 AM REPAIRER ENGINE PRODUCTION Sign off status: Pending * Provider: Zara WELLER Date: 0 12/04/2023 Generated for Bhanu jj/Emilie/eTransmitting on: 1 07/14/2024 08:24 AM REPAIRER ENGINE PRODUCTION
--- OUTSIDE RECORDS SUMMARY | 2024-05-06 02:10 | XMS_ITS ---
Author Organization [facility] Address [address] [place], [place] [address] Care Team Providers Care Network Infrastructure Architect Name Role Phone DA SILVAHERIBERTO MOSES Unavailable [phone] Marcus Marley Unavailable Unavailable CHASE WELLER Unavailable [phone] REASON FOR VISIT *General care Encounters Encounter Location Date Provider Diagnosis [address] [id number] 05/06/2024 CHASE WELLER Unspecified atherosclerosis of [place] arteries of extremities, bilateral legs I70.203 ; [...] Notes Section Notes 05/06/2024 Unspecified atherosclerosis of [place] arteries of extremities, bilateral legs (ICD-10 - [...] Treatment Notes Assessment Notes Unspecified atherosclerosis of [place] arteries of extremities, bilateral legs Patient educated [...] Follow Up: 3 Months, Reason: Provider Name:HERIBERTO WOODWARD, 06/30/2025 08:20:00 AM, [address] [place] [address], [id number], History and Physical Notes * HPI (History [...] MARIA T BUSTILLOSDOB: [birth year] (75 yo M)Acc No.[id number]:05/06/2024 Patient: MARIA T CRUZ Provider: Zara WELLER :1950 A ge:74 Y S ex:Male Date:05/06/2024 Address:[address] [place] [address] Subjective: * Chief Complaints: * * General [...] Patient denies c hest pain, history of [place], irregular heartbeat. M usculoskeletal: Patient complains of [...] (Primary) 2 . U nspecified atherosclerosis of [place] arteries of extremities, bilateral legs - I70.203 [...] * Treatment: 2. U nspecified atherosclerosis of [place] arteries of extremities, bilateral legs Notes: Patient [...] 3 Months Billing Information: * Visit Code: 93472 Office Visit, Est Pt., Level 3. * Procedure Codes: * Electronic signature of RAOUL WELLER DPM on 05/13/2025 at 08:24 AM KAITARA TARAKA Sign off status: Pending * Provider: Zara WELLER Date: 07/07/2023 Generated for Bhanu jj/Emilie/Latosha on: 07/14/2024 08:24 AM KAITARA TARAKA
--- OUTSIDE RECORDS SUMMARY | 2024-06-21 03:00 | XMS_ITS ---
Author Organization [facility] Address [address] [place], [place] [phone] Care Team Providers Care Peg Driver Name Role Phone HERIBETRO DA SILVA Unavailable [phone] Marcus Marley Unavailable Unavailable ZINA STORY Unavailable [phone] REASON FOR VISIT left toe infected D+ Encounters Encounter Location Date Provider Diagnosis [facility] [place] [address] [place], [place] [phone] 06/21/2024 ZINA STORY Plan Of Treatment Next Appt Details Provider Name:HERIBERTO WOODWARD, 06/30/2025 08:20:00 AM, [address] [place] [address], [id number], Progress Notes * MARIA T BUSTILLOSDOB: [birth year] (75 yo M)Acc No.[id number]:06/21/2024 Patient: Javier KINGMARIA T CHAVARRIA Provider: Bailey Story DPM :1950 A ge:74 Y S ex:Male Date:06/21/2024 Address:[address] [place], [place] [phone] Subjective: * Chief Complaints: * l eft toe infected D+ Billing Information: * Procedure Codes: * Electronic signature of ZINA STORY DPM on 05/13/2025 at 08:24 AM BATTERY BUILDER Sign off status: Pending * Provider: Bailey Story DPM Date: 0 06/21/2024 Generated for Bhanu jj/Emilie/Latosha on: 1 07/14/2024 08:24 AM BATTERY BUILDER
--- OUTSIDE RECORDS SUMMARY | 2024-07-01 08:40 | XMS_ITS ---
Author Organization [facility] Address [address] [place], [place] [address] Care Team Providers Care Tax Processor Name Role Phone HERIBERTO DA SILVA Unavailable [phone] DonellMarcus victor Unavailable Unavailable ZINA STORY Unavailable [phone] REASON FOR VISIT The patient is concerned that the left great toe has a black spot underneath it. He is wondering ifit is infected., Patient presents for at-risk foot care . The patient has painful toenails and calluses that are causing difficulty with ambulation and shoegear. The onset is gradual Encounters Encounter Location Date Provider Diagnosis [address] [id number] 07/01/2024 ZINA STORY Tinea unguium B35.1 ; Acquired keratosis [keratoderma] palmaris et plantaris L85.1 ; Atherosclerosis of [place] arteries of extremities with intermittent claudication, bilateral [...] utilizing a #15 blade 07/01/2024 Atherosclerosis of [place] arteries of extremities with intermittent claudication, bilateral [...] sooner if problems develop. Provider Name:HERIBERTO WOODWARD, 06/30/2025 08:20:00 AM, [address] [place] [address], [id number], History and Physical Notes * HPI (History [...] also wanting his nails cut. , MA: [facility] Examination Category Sub-Category Detail Notes Category [...] MARIA T BUSTILLOSDOB: [birth year] (75 yo M)Acc No.[id number]:07/01/2024 Patient: MARIA T CRUZ Provider: Bailey Story DPM :1950 A ge:74 Y S ex:Male Date:07/01/2024 Address:[address] [place], [place] [address] Subjective: * Chief Complaints: * T he [...] also wanting his nails cut. , MA: [facility]. * ROS: G eneral / Constitutional: [...] - L85.1 3 . A therosclerosis of [place] arteries of extremities with intermittent claudication, bilateral [...] problems develop.) Billing Information: * Visit Code: 19361 Office Visit, Est Pt., Level 3. * Procedure Codes: * Electronic signature of ZINA STORY DPM on 05/13/2025 at 08:24 AM CROWN POUNCER Sign off status: Pending * Provider: Bailey Story DPM Date: 0 07/01/2024 Generated for Bhanu jj/Faxing/eTransmitting on: 1 07/14/2024 08:24 AM CROWN POUNCER
--- OUTSIDE RECORDS SUMMARY | 2024-11-25 03:10 | XMS_ITS ---
Author Organization [facility] Address [address] [place], [place] [phone] Care Team Providers Care Electric Solderer Name Role Phone DA SILVAHERIBERTO MOSES Unavailable [phone] Donell Marcus Unavailable Unavailable Allergies No Known [...] : Encounters Encounter Location Date Provider Diagnosis [address] [id number] 11/25/2024 HERIBERTO DA SILVA Tinea unguium B35.1 ; Pain in right foot M79.671 ; Pain in left foot M79.672 ; Atherosclerosis of [place] arteries of extremities with intermittent claudication, bilateral [...] foot (ICD-10 - M79.672) 11/25/2024 Atherosclerosis of [place] arteries of extremities with intermittent claudication, bilateral [...] develop. Provider Name:HERIBERTO WOODWARD, 06/30/2025 08:20:00 AM, [address] [place] [address], [id number], History and Physical Notes * HPI (History [...] MARIA T BUSTILLOSDOB: [birth year] (75 yo M)Acc No.[id number]:11/25/2024 Patient: MARIA T CRUZ Provider: Fredy DA SILVA :1950 A ge:74 Y S ex:Male Date:11/25/2024 Address:[address] [place] [address] Subjective: * Chief Complaints: * * General [...] - M79.672 4 . A therosclerosis of [place] arteries of extremities with intermittent claudication, bilateral [...] SKIN LESIONS, 2 TO 4, Modifiers: Q8 07192 DEBRIDE NAIL, 6 OR MORE, Modifiers: 59 , Q8 * Follow Up: 1 0 - 12 weeks (Reason: At-Risk Foot care, sooner if problems develop.) Billing Information: * Procedure Codes: 30998 TRIM SKIN LESIONS, 2 TO 4. Modifiers: Q8 80905 DEBRIDE NAIL, 6 OR MORE. Modifiers: 59, Q8 * Electronic signature of CELESTE DA SILVA DPM on 05/13/2025 at 08:24 AM VISUAL ARTIST Sign off status: Pending * Provider: Fredy DA SILVA Date: 0 11/25/2024 Generated for Bhanu Del Rosario/Latosha on: 1 07/14/2024 08:24 AM VISUAL ARTIST
--- OUTSIDE RECORDS SUMMARY | 2025-02-10 02:30 | XMS_ITS ---
Author Organization [facility] Address [address] [place], [place] [address] Care Team Providers Care Apparatus Repair Mechanic Name Role Phone DA SILVA, HERIBERTO Unavailable [phone] Marcus Marley Unavailable Unavailable REASON FOR VISIT *General care Encounters Encounter Location Date Provider Diagnosis [address] [id number] 02/10/2025 HERIBERTO DA SILVA Tinea unguium B35.1 ; Pain in right foot M79.671 ; Pain in left foot M79.672 ; Atherosclerosis of [place] arteries of extremities with intermittent claudication, bilateral [...] foot (ICD-10 - M79.672) 02/10/2025 Atherosclerosis of [place] arteries of extremities with intermittent claudication, bilateral [...] develop. Provider Name:HERIBERTO WOODWARD, 06/30/2025 08:20:00 AM, [address] [place] [address], [id number], History and Physical Notes * Examination Category [...] MARIA T BUSTILLOSDOB: [birth year] (75 yo M)Acc No.[id number]:02/10/2025 Patient: MARIA T CRUZ Provider: Frdey DA SILVA :1950 A ge:74 Y S ex:Male Date:02/10/2025 Address:[address] [place], [place] [address] Subjective: * Chief Complaints: * * General [...] - M79.672 4 . A therosclerosis of [place] arteries of extremities with intermittent claudication, bilateral [...] SILVA DPM on 05/13/2025 at 08:24 AM CAR WORKER HELPER Sign off status: Pending * Provider: Fredy DA SILVA Date: 0 02/10/2025 Generated for Bhanu jj/Emilie/Latosha on: 1 07/14/2024 08:24 AM CAR WORKER HELPER
--- OUTSIDE RECORDS SUMMARY | 2025-02-17 05:40 | XMS_ITS ---
Author Organization [facility] Address [address] [place], [place] [address] Care Team Providers Care Accounting Support Specialist Name Role Phone AVINASH HERIBERTO Unavailable [phone] DonellJamalMarcus Unavailable Unavailable Allergies No Known Allergies REASON [...] 12 HOURS Oral; Duration: 10 Days Active Glimepiride 2 MG Tablet TAKE 1 TABLET BY MOUTH TWICE DAILY Oral; Duration: 30 Days Active Xarelto 20 MG Tablet Oral; Duration: 90 Days Active Social History Social History Additional Details Category Social Info Options Details Migrated Social History Migrated Social History Smoking Status : Never used tobacco , Alcohol intake : , History of tobacco use : Vital Signs Height 71.00 in 02/17/2025 Weight 220 lbs 02/17/2025 BMI 30.68 kg/m2 02/17/2025 Height-cm 180.34 cm 02/17/2025 Weight-kg 99.79 kg 02/17/2025 Encounters Encounter Location Date Provider Diagnosis [address] [id number] 02/17/2025 HERIBERTO DA SILVA Fungal infection of nail B35.1 ; Pain in right toe(s) M79.674 ; Pain in left toe(s) M79.675 and Atherosclerosis of [place] arteries of extremities with intermittent claudication, bilateral legs I70.213 Assessments Encounter Date Diagnosis (ICD Code) Assessment Notes Treatment Notes Treatment Clinical Notes Section Notes 02/17/2025 Fungal infection of nail (ICD-10 - B35.1) 02/17/2025 Pain in right toe(s) (ICD-10 - M79.674) 02/17/2025 Pain in left toe(s) (ICD-10 - M79.675) 02/17/2025 Atherosclerosis of [place] arteries of extremities with intermittent claudication, bilateral legs (ICD-10 - I70.213) Plan Of Treatment Next Appt Details Provider Name:HERIBERTO LARA CRISSY, 06/30/2025 08:20:00 AM, [address] [place] [address], [id number], History and Physical Notes * HPI (History of Present Illness) Category Sub-Category Detail Notes Category Not es HPI General care Patient presents to the office for diabetic foot care. Patient states that their nails are thickened, elongated and painful. Patient states that it is aggravated by shoe gear. Onset is gradual., Patient denies taking blood thinners., Date last seen by Dr. Marley was 02/16/25., Initials ab Progress Notes * AKHILHERIBERTOMARIA TDOB: [birth year] (75 yo M)Acc No.[id number]:02/17/2025 Patient: MARIA T CRUZ Provider: Fredy DA SILVA :1950 A ge:74 Y S ex:Male Date:02/17/2025 Address:[address] [place] [address] Subjective: * Chief Complaints: * * General care * HPI: H PI: General care P atient presents to the office for diabetic foot care. Patient states that their nails are thickened, elongated and painful. Patient states that it is aggravated by shoe gear. Onset is gradual., Patient denies taking blood thinners., Date last seen by Dr. Marley was 02/16/25., Initials ab. * Medical History: No Medical History Documented Medical History Verified * Surgical History: Denies Past Surgical History. Surgical History verified. * Hospitalization/Major Diagno stic Procedure: Denies Past Hospitalization. Hospitalization Verified. * Family History: N o Family [...] * Allergies: N .K.D.A.yesAllergies Verified. Objective: * Vitals: W t:220lbs, Wt-k.79 kg, Ht: 71.00 in, Ht-cm: 180.34 cm, BMI:30.68Index, Body Surface Area: 2.23. Assessment: * Assessment: 1. F ungal infection of nail - B35.1 (Primary) 2 . P ain in right toe(s) - M79.674 3 . P ain in left toe(s) - M79.675 4 . A therosclerosis of [place] arteries of extremities with intermittent claudication, bilateral legs - I70.213 ? Plan: * Preventive Medicine: Screenings: F all risk screening F all Risk Assessment: N o falls in the past year. Billing Information: * Visit Code: 99421 Office Visit, Est Pt., Level 3. * Electronic signature of CELESTE DA SILVA DPM on 05/13/2025 at 08:25 AM APPLICATION DEFENSE MANAGER Sign off status: Pending * Provider: Fredy DA SILVA Date: 0 02/17/2025 Generated for Bhanu jj/Emilie/Rubenitting on: 1 07/14/2024 08:25 AM APPLICATION DEFENSE MANAGER
--- OUTSIDE RECORDS SUMMARY | 2025-04-28 02:10 | XMS_ITS ---
Author Organization [facility] Address [address] [place], [place] [id number] Care Team Providers Care Electrical Designer Drafter Name Role Phone AVINASH HERIBERTO Unavailable [phone] Donell Marcus Unavailable Unavailable Allergies No Known Allergies REASON FOR VISIT *General care Medications Medication SIG (Take, Route, Frequency, Duration) Notes Start Date End Date Status Glimepiride 2 MG Tablet TAKE 1 TABLET BY MOUTH TWICE DAILY Oral; Duration: 30 Days Active Tamsulosin HCl 0.4 MG Capsule TAKE 1 [...] use : Vital Signs Height 71.00 in 04/28/2025 Weight 220 lbs 04/28/2025 BMI 30.68 kg/m2 04/28/2025 Height-cm 180.34 cm 04/28/2025 Weight-kg 99.79 kg 04/28/2025 Encounters Encounter Location Date Provider Diagnosis [address] [id number] 04/28/2025 HERBIERTO DA SILVA Fungal infection of nail B35.1 ; Pain in right toe(s) M79.674 ; Pain in left toe(s) M79.675 and Atherosclerosis of [place] arteries of extremities with intermittent claudication, bilateral legs I70.213 Assessments Encounter Date Diagnosis (ICD Code) Assessment Notes Treatment Notes Treatment Clinical Notes Section Notes 04/28/2025 Fungal infection of nail (ICD-10 - B35.1) NAIL DEBRIDEMENT: Nails 1-5 Bilateral were debrided extensively with nail nippers and emery board, reducing length and girth to pink healthy tissue with any subungual debris and necrotic tissue removed 04/28/2025 Pain in right toe(s) (ICD-10 - M79.674) 04/28/2025 Pain in left toe(s) (ICD-10 - M79.675) 04/28/2025 Atherosclerosis of [place] arteries of extremities with intermittent claudication, bilateral legs (ICD-10 - I70.213) Patient educated on risks and aggravating factors of PVD, including conservative treatment options such as a diet and exercise regimen to aid in slowing progression of vascular disease. Check and protect LE bilateral daily. Call if any changes or concerns. Plan Of Treatment Treatment Notes Assessment Notes Fungal infection of nail NAIL DEBRIDEMEN T: Nails 1-5 Bilateral were debrided extensively with nail nippers and emery board, reducing length and girth to pink healthy tissue with any subungual debris and necrotic tissue removed Atherosclerosis of [place] ar teries of extremities with intermittent claudication, bilateral legs Patient educated on risks and aggravatin g factors of PVD, including conservative treatment options such as a diet and exercise regimen to aid in slowing progression of vascular disease. Check and protect LE bilateral daily. Call if any changes or concerns. Next Appt Details Follow Up: 10 - 12 weeks, Re ason: At-Risk Foot care, sooner if problems develop. Provider Name:HERIBERTO WOODWARD, 06/30/2025 08:20:00 AM, [address] [place] [address], [id number], History and Physical Notes * HPI (History [...] seen by Dr. Marley was 02/16/25., Initials nd Examination Category Sub-Category Detail Notes Category Not [...] MARIA T BUSTILLOSDOB: [birth year] (75 yo M)Acc No.[id number]:04/28/2025 Patient: Javier MARIA T DALLAS Provider: Fredy DA SILVA :1950 A ge:75 Y S ex:Male Date:04/28/2025 Address:[address] [place] [address] Subjective: * Chief Complaints: * * General care * HPI: H PI: General care P atient presents to the office for diabetic foot care. Patient states that their nails are thickened, elongated and painful. Patient states that it is aggravated by shoe gear. Onset is gradual., Patient denies taking blood thinners., Date last seen by Dr. Marley was 02/16/25., Initials nd. * ROS: G eneral / Constitutional: Patient [...] confusion, difficulty speaking, dizziness. * Medical History: Denies Past Medical History No Medical History Documented Medical History Verified [...] 180.34 cm, BMI:30.68Index, Body Surface Area: 2.23. * Examination: P hysical Examination: General appearance: [...] lower extremities. ? Assessment: * Assessment: 1. F ungal infection of nail - B35.1 (Primary) 2 . P ain in right toe(s) - M79.674 3 . P ain in left toe(s) - M79.675 4 . A therosclerosis of [place] arteries of extremities with intermittent claudication, bilateral legs - I70.213 ? Plan: * Treatment: 2. A therosclerosis of [place] arteries of extremities with intermittent claudication, bilateral legs Notes: Patient educated on risks and aggravating factors of PVD, including conservative treatment options such as a diet and exercise regimen to aid in slowing progression of vascular disease. Check and protect LE bilateral daily. Call if any changes or concerns. * Follow Up: 1 0 - 12 weeks (Reason: At-Risk Foot care, sooner if problems develop.) Billing Information: * Visit Code: 03204 Office Visit, Est Pt., Level 3. * Procedure Codes: * Electronic signature of CELESTE DA SILVA DPM on 05/13/2025 at 08:25 AM MANAGER KNOWLEDGE Sign off status: Pending * Provider: Fredy DA SILVA Date: 06/29/2024 Generated for Bhanu jj/Emilie/Latosha on: 07/14/2024 08:25 AM MANAGER KNOWLEDGE
--- NOTE | ~2025-05-13 | CT_ITS ---
EXAM/PROCEDURE: CT chest abdomen pelvis w con HISTORY: Thrombocytopenia, Hx: squamous cell carcinoma of skin COMPARISON: June 15, 2018 TECHNIQUE: IV contrast enhanced CT of the chest abdomen and pelvis FINDINGS: CHEST CT: Mild scattered fibrotic and atelectatic appearing changes in the lungs which are otherwise clear. No suspicious lymphadenopathy. Heart and great vessels appear normal other than extensive coronary artery calcification and/or stenting. The thoracic bones appear intact with multilevel degenerative changes. ABDOMEN AND PELVIC CT: Numerous cystic lesions are present in the liver with the largest septated slightly complex appearing cyst measuring 1.9 cm decreased in size from the previous exam when it measured approximate 4 cm. Other smaller likely cystic lesions are present which are too small to definitively characterize and not well-seen on the previous noncontrast exam. No suspicious liver masses seen. Adrenal glands spleen stomach pancreas aorta and urinary bladder unremarkable. Moderately enlarged prostate. No bulky mesenteric or retroperitoneal lymphadenopathy or masses seen. Scattered pathologic sized lymph nodes appear grossly stable compared to the previous study. The bowel gas pattern is nonobstructive with no free air or pneumatosis. Trace amount of free fluid present in the lower pelvis. Moderately severe diverticular disease with no gross acute diverticulitis. No grossly inflamed appendix. Advanced degenerative changes in the lumbar spine but no acute or aggressive bony process seen. 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 IMPRESSION: 1. No gross evidence of recurrent malignant or metastatic disease in the chest abdomen or pelvis. 2. Trace amount of fluid in the lower pelvis of uncertain significance. 3. Prominent cystic lesion in the dome of the liver is smaller in measurement on today's exam consistent with mildly complex benign cyst. 4. Several other chronic benign findings as above. Reviewed, dictated and finalized at location [facility] IMPRESSION: 1. No gross evidence of recurrent malignant or metastatic disease in the chest abdomen or pelvis. 2. Trace amount of fluid in the lower pelvis of uncertain significance. 3. Prominent cystic lesion in the dome of the liver is smaller in measurement o n today's exam consistent with mildly complex benign cyst. 4. Several other chronic benign findings as above.
--- OUTSIDE RECORDS SUMMARY | 2025-05-13 08:24 | XMS_ITS | Encounter Summary ---
Author Organization [facility] Address [address] [place] [address] Care Team Providers Care Digital Marketing Coordinator Name Role Phone Marcus Marley MD Primary Care Provider [phone] Bertin Mustafa MD Unavailable [phone] Encounter Details Date Type Department Care Team (Late Contact Info) Description 06/18/2023 Prep for Procedure [facility] [address] [place] [address] [phone] Bertin Mustafa MD [address] [place] [phone] Social History Tobacco Use Types Packs/Day Years [...] Description 12/22/2025 12:45 PM CDT Office Visit [facility] [address] [place] [address] [phone] Bertin Mustafa MD [address] [place] [address] documented as of this encounter Visit Diagnoses Not on filedocumented in this encounter Care Teams Digital Marketing Coordinator Relationship Specialty Start Date End Date Marcus Marley MD [address] [place] [phone] PCP - General INTERNAL MEDICINE 03/31/23 Bertin Mustafa MD [address] [place] [phone] EP Supervisor Shipping Room CLINICAL CARDIAC ELECTROPHYSIOLOGY 12/16/24 documented as of this encounter
--- OUTSIDE RECORDS SUMMARY | 2025-05-13 08:24 | XMS_ITS | Patient Health Record ---
Author Organization [facility] Address [address] [place], [place] [id number] Care Team Providers Care Supervisor Loading Name Role Phone HERIBERTO DA SILVA Unavailable [phone] Donell Marcus Unavailable Unavailable ZINA STORY Unavailable [phone] Allergies No Known Allergies Reason For Referral [...] use : Vital Signs Height-cm 180.34 cm 04/28/2025 Weight-kg 99.79 kg 04/28/2025 Height 71.00 in 04/28/2025 Weight 220 lbs 04/28/2025 BMI 30.68 kg/m2 04/28/2025 Encounters Encounter Location Date Provider Diagnosis [address] [id number] 07/01/2024 ZINA STORY Tinea unguium B35.1 ; Acquired keratosis [keratoderma] palmaris et plantaris L85.1 ; Atherosclerosis of [place] arteries of extremities with intermittent claudication, bilateral legs I70.213 ; Pain in right foot M79.671 and Pain in left foot M79.[address] [id number] 11/25/2024 HERIBERTO DA SILVA Tinea unguium B35.1 ; Pain in right foot M79.671 ; Pain in left foot M79.672 ; Atherosclerosis of [place] arteries of extremities with intermittent claudication, bilateral legs I70.213 and Acquired keratosis [keratoderma] palmaris et plantaris L85.[address] [id number] 02/17/2025 HERIBERTO DA SILVA Fungal infection of nail B35.1 ; Pain in right toe(s) M79.674 ; Pain in left toe(s) M79.675 and Atherosclerosis of [place] arteries of extremities with intermittent claudication, bilateral legs I70.[address] [id number] 04/28/2025 HERIBERTO DA SILVA Fungal infection of nail B35.1 ; Pain in right toe(s) M79.674 ; Pain in left toe(s) M79.675 and Atherosclerosis of [place] arteries of extremities with intermittent claudication, bilateral legs I70.[address] [id number] 09/23/2024 ZINA STORY Tinea unguium B35.1 ; Acquired keratosis [keratoderma] palmaris et plantaris L85.1 ; Atherosclerosis of [place] arteries of extremities with intermittent claudication, bilateral [...] Fungal infection of nail (ICD-10 - B35.1) 04/28/2025 Pain in right toe(s) (ICD-10 - M79.674) 04/28/2025 Fungal infection of nail (ICD-10 - B35.1) NAIL DEBRIDEMENT: Nails 1-5 Bilateral were debrided extensively with nail nippers and emery board, reducing length and girth to pink healthy tissue with any subungual debris and necrotic tissue removed 04/28/2025 Pain in left toe(s) (ICD-10 - M79.675) 02/17/2025 Pain in left toe(s) (ICD-10 - M79.675) 11/25/2024 Pain in left foot (ICD-10 - M79.672) 09/23/2024 Atherosclerosis of [place] arteries of extremities with intermittent claudication, bilateral legs (ICD-10 - I70.213) 07/01/2024 Atherosclerosis of [place] arteries of extremities with intermittent claudication, bilateral legs (ICD-10 - I70.213) 07/01/2024 Pain in right foot (ICD-10 - M79.671) 11/25/2024 Atherosclerosis of [place] arteries of extremities with intermittent claudication, bilateral legs (ICD-10 - I70.213) 09/23/2024 Pain in right foot (ICD-10 - M79.671) 02/17/2025 Atherosclerosis of [place] arteries of extremities with intermittent claudication, bilateral legs (ICD-10 - I70.213) 04/28/2025 Atherosclerosis of [place] arteries of extremities with intermittent claudication, bilateral legs (ICD-10 - I70.213) Patient educated on risks and aggravating factors of PVD, including conservative treatment options such as a diet and exercise regimen to aid in slowing progression of vascular disease. Check and protect LE bilateral daily. Call if any changes or concerns. 09/23/2024 Pain in left foot (ICD-10 - M79.672) 11/25/2024 Acquired keratosis [keratoderma] palmaris et plantaris (ICD-10 - L85.1) A total of 2 corns or calluses, as described in the note above, were cut and pared utilizing a #15 blade 07/01/2024 Pain in left foot (ICD-10 - M79.672) Plan Of Treatment Next Appt Details Provider Name:HERIBERTO WOODWARD, 06/30/2025 08:20:00 AM, [address] [place] [address], [id number], Insurance Providers Payer Name Payer Address Payer Phone Subscriber Number Group Number Insured Name Patient Relationship to Insured Coverage Start Date Coverage End Date [employer] MedicareCom plete ([facility]) [address] [place], [place] [id number] MARIA T LAGUNA Self - patient is the insured
--- OUTSIDE RECORDS SUMMARY | 2025-05-13 08:24 | XMS_ITS | Clinical Summary ---
Author Organization [facility] Address [address] [place] [address] Care Team Providers Care Prenatal Teacher Name Role Phone Marcus Marley MD Primary Care Provider [phone] Bertin Mustafa MD Unavailable [phone] Allergies No known active allergies Medications [...] Diagnosed Date Coronary artery disease invo lving [place] coronary artery of [place] heart without angina pectoris 08/13/2023 Abnormal stress test 06/14/2023 Longstanding persistent atrial fibrillation 03/26 Anticoagulation adequate 04/05/2023 HTN (hypertension), benign 04/05/2023 Renal insufficiency 04/05/2023 Overview (04/05/2023): Creat 2.2 --- 02/01/2023 Resolved Problems Problem Noted Date Diagnosed Date Resolved Date Preop cardiovascular exam 08/13/2023 Encounters Date Type Department Care Team Description 04/13/[address] [facility] [address] [place] [address] Bertin Mustafa MD Ekg from Last 3 [...] 36.1 C (97 F) 07/03/2023 10:59 AM GUM WORKER Respiratory Rate 18 12/16/2024 2:02 PM CDT Oxygen Saturation 95% 07/03/2023 10:59 AM GUM WORKER Inhaled Oxygen Concentration - - Weight 104.3 kg (230 lb) 12/16/2024 2:02 PM CDT Height 177.8 cm (5' 10) 12/16/2024 2:02 PM CDT Body Mass Index 33 12/16/2024 2:02 PM CDT Plan of Treatment Upcoming Encounters Date Type Department Care Team (Late st Contact Info) Description 12/22/2025 12:45 PM CDT Office Visit [facility] [address] [place] [address] Bertin Mustafa MD [address] [place] [phone] Health Maintenance Due Date Last Done Comments [...] CDT) CHOLESTEROL 132 MG/DL 06/04/2023 10:05 AM [facility] Comment:DESIRABLE: <200 TRIGLYCERIDES 264 MG/DL 06/04/2023 10:05 AM [facility] Comment:200-499 HIGH HDL 14(L) >39 MG/DL 06/04/2023 10:05 AM [facility] LDL (CALCULATED) 65 MG/DL 06/04/19 10:05 AM [facility] Comment:<100 OPTIMAL VLDL CALCULATION 53 MG/DL 06/04/19 10:05 AM [facility] Comment:REFERENCE RANGE NOT ESTABLISHED CHOL/HDL RATIO 9.4 06/04/2023 10:05 AM [facility] Comment:REFERENCE RANGE NOT ESTABLISHED LDL/HDL 4.6 06/04/2023 10:05 AM [facility] Comment:REFERENCE RANGE NOT ESTABLISHED NON HDL CHOLESTEROL 118 MG/DL 06/04/2023 10:05 AM [facility] Comment:REFERENCE RANGE NOT ESTABLISHED 01/31/2023 4:04 AM CDT Karishma Garcia MD LABORATORY Final Result Performing Organization Address City/State/[facility] Co de Phone Number [facility] [address] [place] [address], [id number] from Last 3 Months or Most Recently Relevant to Health Maintenance Insurance [facility] MEDICARE Advance Directives * Full Code (Latest Code Status on File) Date Activated Date Inactivated Comments 07/03/2023 2:27 PM 07/03/2023 6:01 PM Care Teams Prenatal Teacher Relationship Specialty Start Date End Date Marcus Marley MD [address] [place] [address] PCP - General INTERNAL MEDICINE 03/31/23 Bertin Mustafa MD [address] [place] [address] EP Weather Strip Mechanic CLINICAL CARDIAC ELECTROPHYSIOLOGY 12/16/24
[2025-05-13 08:50] LABS: Estimated Glomerular Filt Rate > 60
== END 2025-05-13 08:18 | disposition home or self-care (01) ==
LOC: CHSIMG 08:19
PROVIDERS: PCP Internal Medicine; Visit Provider Internal Medicine
DX: D69.6 Thrombocytopenia, unspecified (principal); K76.9 Liver disease, unspecified
CPT/HCPCS: 71260; 74177; Q9967